=== PATIENT | male | born 1945 | race Caucasian/White ===

== ENCOUNTER 2019-06-26 08:40 | Outpatient (CLI) | payer MEDICARE, SELFPAY ==
--- NOTE | ~2019-06-26 | CT_ITS ---
EXAMINATION: CT chest wo con EXAM DATE: 06/26/2019 09:39 INDICATION: Sprain of the sternoclavicular joint, pain. TECHNIQUE: Spiral CT of the chest without contrast. Axial, coronal and sagittal images were reviewe d. Coronal maximum intensity pixel images of chest reviewed. The dose-length product (DLP) for this examination was 223.98 mGy-cm. The exposure was tailored according to patient size (auto mA exposur e control), and iterative reconstruction (ASIR) was used as additional dose reduction technique. Comp arison is made to prior examination from 11/23/2011. 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 There are no acute fractures identified. There is a 4 mm nodule in the lingula, new compared to 201 2 exam, but most likely postinfectious. The lungs are otherwise clear. Trace pericardial, no pleura l effusions. Tracheobronchial tree is patent. There is no mediastinal, hilar or axillary lymphaden opathy. There is no pneumothorax. Heart normal in size. There is mild to moderate coronary jeannie rial calcification, arterial sclerosis. There are cholecystectomy clips. There is thoracic spondyl osis without osteoblastic or osteolytic lesions identified. IMPRESSION: 1. 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 2. Small lingular nodule likely postinfectious but new compared to 2012; optional one-year follow-up low-dose chest CT. Reviewed, dictated and finalized at location A. ONARY DISEASE SPECIALIST IMPRESSION: 1. 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 2. Small lingular nodule likely postinfectious but new compared to 2012; optio nal one-year follow-up low-dose chest CT.
== END 2019-06-26 08:41 | disposition home or self-care (01) ==
PROVIDERS: PCP Family Medicine; Visit Provider Physician Assistant Surgical
DX: S23.420D Sprain of sternoclavicular (joint) (ligament), subsequent encounter (principal); X58.XXXD Exposure to other specified factors, subsequent encounter; M19.012 Primary osteoarthritis, left shoulder; M19.011 Primary osteoarthritis, right shoulder
CPT/HCPCS: 71250

== ENCOUNTER 2022-06-23 16:52 | Outpatient (CLI) | payer MEDICARE, SELFPAY ==
--- NOTE | ~2022-06-23 | US_ITS ---
EXAMINATION: US venous doppler [facility] DATE: 06/23/2022 17:49 INDICATION: Z86.711 - Personal history of pulmonary embolism . TECHNIQUE: Grayscale images without and with compression and Doppler images of the left lower extremi ty veins were obtained. COMPARISON: None FINDINGS: The left popliteal vein is partially compressible. There is nonocclusive thrombus in the left poplite al vein and partial vascular flow. The left common femoral vein, profunda femoral vein, femoral vein, peroneal vein, posterior tibial veins, gastrocnemius vein, and greater saphenous vein are patent. IMPRESSION: 1. Subacute/chronic nonocclusive thrombus in the left popliteal vein. 2. Otherwise patent lower extremity veins. No evidence of acute deep venous thrombosis. Reviewed, dictated and finalized at location K. AROUND PATTERNMAKER IMPRESSION: 1. Subacute/chronic nonocclusive thrombus in the left popliteal vein. 2. Otherwise patent lower extremity veins. No evidence of acute deep venous thr ombosis.
== END 2022-06-23 16:53 | disposition home or self-care (01) ==
PROVIDERS: PCP Family Medicine; Visit Provider Physician Assistant
DX: M79.89 Other specified soft tissue disorders (principal); L53.9 Erythematous condition, unspecified; Z86.711 Personal history of pulmonary embolism; I82.432 Acute embolism and thrombosis of left popliteal vein
CPT/HCPCS: 93971

== ENCOUNTER 2022-06-28 10:07 | Inpatient (IN) | payer MEDICARE, SELFPAY ==
[2022-06-28] VITALS (19 sets, daily range): BP systolic 97–139; BP diastolic 48–75; PULSE 68–88; RESP 12–20; TEMP 36.2–36.5; O2SAT 94–100; BMI 24.3
--- NOTE | ~2022-06-28 | US_ITS ---
EXAMINATION: US art doppler w press LE DATE: 07/01/2022 17:36 INDICATION: Peripheral arterial disease. TECHNIQUE: Segmental pressures and plethysmographic and Doppler waveforms of the brachial and lower e xtremity arteries were obtained. COMPARISON: ABIs 05/15/18 FINDINGS: Right and left brachial artery pressures of 148 mm Hg and 140 mm Hg, respectively, are concordant (no rmal difference <= 30 mmHg). The right low-thigh pressure index is 1.18. The right ankle-brachial index (GENO) could not be measure d due to inability to cuff-occlude the arteries (normal >= 0.9-1.0). The right great toe-brachial ind ex (TBI) is 0.90 (normal >= 0.65). Arterial Doppler waveforms are at least triphasic in common femora l artery and biphasic from superficial femoral artery to the ankle. The left low-thigh pressure index is 1.11. The left GENO could not be measured due to inability to cuf f-occlude the arteries. The left TBI is 0.65. Arterial Doppler waveforms are biphasic from common fem oral artery to the ankle. IMPRESSION: 1. No significant arterial occlusive disease. Reviewed, dictated and finalized at location A. L INSPECTOR
[2022-06-28 12:53] LABS: Basophils Percent Auto 0.3 % (0.2-1.2); Eosinophils Absolute Auto 0.1 K/mm3 (0-0.3); Hematocrit 44.5 % (42.0-52.0); Hemoglobin 15.4 g/dL (14.0-18.0); Immature Granulocyte Absolute 0.03 K/mm3 (0.00-0.031); Immature Granulocyte Percent A 0.3 % (0-0.5); Lymphocytes Absolute Auto 2.41 K/mm3 (0.9-3.2); Lymphocytes Percent Auto 25.9 % (18.3-44.2); Mean Corpuscular HGB Conc 34.6 g/dl (32-36); Mean Corpuscular Hemoglobin 33.7 pg (26-34); Mean Corpuscular Volume 97.4 fl (80-100); Mean Platelet Volume 8.9 fl (7.4-10.4); Monocytes Absolute Auto 0.8 K/mm3 (0.1-0.6); Monocytes Percent Auto 8.4 % (2.6-8.5); Neutrophils Percent Auto 64.1 % (45.5-73.1); Platelet Count Result 207 k/mm3 (150-375); Red Blood Count 4.57 M/mm3 (4.6-6.20); Red Cell Distribution Width 13.1 % (11.5-14.5); White Blood Count 9.3 K/mm3 (4.5-10.0)
[2022-06-28 13:06] LABS: Lactic Acid Reflex 1.8 mmol/L (0.7-2.0)
[2022-06-28 13:07] LABS: Alanine Aminotransferase 32 U/L (6-50); Albumin Level 4.5 g/dL (3.5-5.1); Alkaline Phosphatase 52 U/L (38-126); Anion Gap 8 mmol/L (8-16); Aspartate Amino Transferase 29 U/L (17-59); Bilirubin,Total 0.8 mg/dL (0.2-1.3); Blood Urea Nitrogen 19 mg/dL (9-20); Calcium 9.4 mg/dL (8.4-10.2); Carbon Dioxide 24 mmol/L (22-30); Chloride 103 mmol/L (98-107); Estimated CRCL calculation 102 ml/min; Estimated Glomerular Filt Rate > 60; Glucose 143 mg/dL (65-110); Potassium 4.3 mmol/L (3.4-5.0); Sodium 135 mmol/L (137-145)
--- NOTE | 2022-06-28 14:06 | ED.EXTPRO ---
HPI - Extremity Problem General Chief complaint: Extremity Problem,Nontraumatic Stated complaint: cellulitis of left leg Time Seen by Provider: 06/28/22 11:44 History of Present Illness HPI Narrative: Patient is a 77-year-old male who presents ER with lower extremity cellulitis. Worsening over the last week. Was started on doxycycline and redness continues to spread up his left lower extremity. Patient is diabetic. He has a lot of breaks in his skin on the affected leg. Patient also has history of Rrztsfx-Fnsqp-Mvdkc and wears a brace to the right lower extremity. His left arm is in a immobilizer. Denies fevers or chills or sweats. He is just concerned about the spreading of the cellulitis. Related Data Home Medications Medication Instructions Recorded Confirmed cyanocobalamin (vitamin B-12) 1,000 mcg IM WEEKLY 06/28/22 06/28/22 1,000 mcg/mL injection solution fluticasone propionate 50 1 spray intranasal Q12H PRN 06/28/22 06/28/22 mcg/actuation nasal Congestion spray,suspension (Flonase Allergy Relief) metformin 500 mg tablet,extended 500 mg PO BIDWM 06/28/22 06/28/22 release 24 hr Allergies Allergy/AdvReac Type Severity Reaction Status Date / Time codeine Allergy Unknown severe Verified 06/23/22 15:50 itchy cefepime AdvReac Unresponsiv Verified 06/28/22 14:40 e Review of Systems Review of Systems: All systems reviewed & are unremarkable except as noted in HPI and below Constitutional: Constitutional: Denies chills, Denies fatigue and Denies fever(s) Cardiovascular: Cardiovascular: Denies chest pain, Denies rapid heart rate and Denies radiating jaw, neck or arm pain Respiratory: Respiratory: Denies cough and Denies dyspnea Integumentary/Breasts: Skin/Breast: Denies pruritus, Reports erythema and Denies rash Comments: Dry flaking skin left lower extremity PMFSH Past Medical History Medical History (Updated 06/28/22 @ 20:11 by Ned Duran MD) Amputated toe of left foot Essential (primary) hypertension Hereditary and idiopathic neuropathy, unspecified Idiopathic neuropathy Pernicious anemia Personal history of other venous thrombosis and embolism Personal history of other venous thrombosis and embolism Surgical History Surgical History (Updated 06/28/22 @ 20:11 by Ned Duran MD) S/P IVC filter Family History Family History (Updated 06/28/22 @ 18:19 by Zara Rivera RN) Mother Family history of lung cancer Family history of malignant neoplasm of breast in first degree relative Father Hypertension Cerebrovascular accident DVT (deep venous thrombosis) Asthma Social History Social History Social History: Smoking status: Former smoker Tobacco type: pipe and cigars Second hand tobacco smoke exposure: No Smoking end date: 05/09/93 Additional smoking assessment comments: quit in 1999 Alcohol intake: never Substance use: never Substance use type: does not use Lack of Transportation: No Lack of Food: Never True Current Housing: I Have Housing Concerned About Future Housing: No Difficulty Paying Gas/Electric Bills: No Difficulty Paying for Meds: No Currently Unemployed: No Education: Master's Degree or Higher Difficulty w/ Childcare or Family Care: No Living arrangements: with family Occupation/Education: retired Gender identity (if verbalized by the patient): Male Sexual Orientation (if Verbalized by the Patient): Straight or Heterosexual Spiritual care concerns: No Exam Narrative: GENERAL: Well-appearing, well-nourished, and in no acute distress. HEAD: Normocephalic, atraumatic. EYES: PERRL and EOMI. ENT: Mucous membranes moist. CHEST: Clear to auscultation. No respiratory distress. HEART: Regular rate and rhythm. Normal peripheral pulses. ABDOMEN: Soft, nontender, nondistended. EXTREMITIES: Left upper extremity immobilized. Rig
[2022-06-28] MEDS: metroNIDAZOLE 500 MG/ISO 100ML 500 MG/100 ML BAG 100 MG IVPB ×2 (14:25→21:13)
[2022-06-28] MEDS: SODIUM CHLORIDE 0.9% IV 1,000 ML 999 ML IV CONT (14:46)
[2022-06-28] MEDS: diphenhydrAMINE HCl INJ 50 MG/ML VIAL 25 MG IV PUSH (14:47)
--- NOTE | 2022-06-28 14:47 | PC.NURSE ---
While Cefepime was infusing, Pt. started yelling out that he was feeling very hot. Pt. appeared flushed and red. Cefepime stopped. After that, Pt. had an episode of unresponsiveness and appeared to have a syncopal episode lasting about 30 seconds. Carotid pulse present. Pt. woke up immediately after the event. ERP notified and was at bedside when Pt. went unresponsive. No hives or swelling noted. Pt. placed in a room with environmental monitoring specialist. ERP placed new orders. Pt. feeling lethargic.
[2022-06-28 15:51] LABS: Influenza A QL RT-PCR Negative (Negative); Influenza B QL RT-PCR Negative (Negative); SARS-CoV-2 RNA PCR Negative
--- NOTE | 2022-06-28 16:45 | PM.IMHP ---
H&P: HPI History of Present Illness Date/Time: 06/28/22 16:45 Chief Complaint: Worsening left leg infection. 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 He has some chronic hyperpigmentation in the lower legs bilaterally which is likely due to the braces that he wears. He typically wears Edis hose under his braces and socks over them, removing them at nighttime. However he had a left rotator cuff repair done several weeks ago and for a few days he wore the brace is continuously as he was having difficulties with his balance and limited mobility from the surgery. Several days thereafter he developed increasing redness and burning pain in the posterior ankle area. He was seen by his primary care provider on 06/23/2022 and was started on doxycycline for presumed cellulitis. A venous Doppler ultrasound was done at that time to evaluate for possible DVT as he had been off of his warfarin for a bit before his surgery. A subacute/chronic nonocclusive thrombus was noted in the left popliteal vein and his warfarin has been therapeutic, and fact it was 4.2 last night and he did not take the warfarin today. In any event the redness in his leg has started to spread upwards and he has noticed some serous drainage from the shallow open area on the posterior heel and he came in today for evaluation. Due to his comorbidities he was started on broad-spectrum antibiotics per antibiotic stewardship recommendations. Within a minute following the start of his cefepime infusion he developed burning sensations ?in my veins? with flushed feeling and he had a brief syncopal episode where he was hypotensive. Nurse stop the IV infusion immediately and he was administered diphenhydramine IV with improvement in his symptoms. He has been stable since that time and reports that he has never had an allergic reaction to cephalosporins in the past. He denies fever, nausea, vomiting, and history of multidrug resistant organisms. Review of Systems Review of Systems: Twelve systems were reviewed and are negative except for as per HPI. [facility] Past Medical History Medical History (Updated 06/28/22 @ 22:19 by Lisa Garza PA-C) Jmieanf-Thdwo-Yiywd disease Chronic anticoagulation Essential (primary) hypertension Idiopathic neuropathy Pernicious anemia Personal history of other venous thrombosis and embolism Type 2 diabetes mellitus Surgical History Surgical History Amputated toe of left foot History of basal cell carcinoma excision History of cataract extraction History of cholecystectomy History of inferior vena caval filter placement History of repair of left rotator cuff Family History Family History Mother Family history of lung cancer Family history of malignant neoplasm of breast in first degree relative Father Hypertension Cerebrovascular accident DVT (deep venous thrombosis) Asthma Social History Social History (Updated 06/28/22 @ 22:14 by Lisa Garza PA-C) Social History: Surrogate medical decision maker: Nona Browning, spouse. Code status: Full code. Smoking status: Former smoker Tobacco type: pipe and cigars Second hand tobacco smoke exposure: No Smoking end date: 05/09/93 Additional smoking assessment comments: quit in 1999 Alcohol intake: never Substance use: never Substance use type: does not use Lack of Transportation: No Lack of Food: Never True Current Housing: I Have Housing Concerned About Future Housing: No Difficulty Paying Gas/Electric Bills: No Difficulty Paying for Meds: No Currently Unemployed: No Education: Master's Degree or Higher Difficulty
--- NOTE | 2022-06-28 17:24 | ADMGEN ---
This patient, Fan Browning, was admitted to IMU Room 206-01. Patient/family oriented to hospital policies and general routines including ID bracelet, bed and alarms, visiting hours, pain management, procedures, bathroom and other care routines, personal items, smoking policy, room service/diet, and visiting hours. Information on how to activate the Rapid Response Team has been discussed. Patient/Family are encouraged to report perceived risks to care and to ask questions if they do not understand what they are told or what they should do.
[2022-06-28] MEDS: SODIUM CHLORIDE 0.9% IV 1,000 ML 125 ML IV CONT (17:25)
[2022-06-28 19:35] LABS: Glucose Point of Care 219 mg/dl (65-105)
[2022-06-28 23:01] LABS: Hemoglobin A1C 7.6 % (<5.7)
[2022-06-28 23:04] LABS: INR 2.4; Prothrombin Time 25.1 Seconds (11.1-14.7)
[2022-06-29] VITALS (14 sets, daily range): BP systolic 110–131; BP diastolic 54–77; PULSE 69–85; RESP 14–16; TEMP 36.1–37.1; O2SAT 100
[2022-06-29 04:46] LABS: Hematocrit 39.2 % (42.0-52.0); Hemoglobin 13.4 g/dL (14.0-18.0); Mean Corpuscular HGB Conc 34.2 g/dl (32-36); Mean Corpuscular Hemoglobin 33.3 pg (26-34); Mean Corpuscular Volume 97.5 fl (80-100); Mean Platelet Volume 8.7 fl (7.4-10.4); Platelet Count Result 168 k/mm3 (150-375); Red Blood Count 4.02 M/mm3 (4.6-6.20); Red Cell Distribution Width 12.9 % (11.5-14.5); White Blood Count 5.7 K/mm3 (4.5-10.0)
[2022-06-29 04:56] LABS: INR 2.2; Prothrombin Time 23.3 Seconds (11.1-14.7)
[2022-06-29 05:02] LABS: Alanine Aminotransferase 27 U/L (6-50); Albumin Level 3.8 g/dL (3.5-5.1); Alkaline Phosphatase 44 U/L (38-126); Anion Gap 5 mmol/L (8-16); Aspartate Amino Transferase 22 U/L (17-59); Bilirubin,Total 0.8 mg/dL (0.2-1.3); Blood Urea Nitrogen 15 mg/dL (9-20); Calcium 8.5 mg/dL (8.4-10.2); Carbon Dioxide 25 mmol/L (22-30); Chloride 105 mmol/L (98-107); Estimated CRCL calculation 102 ml/min; Estimated Glomerular Filt Rate > 60; Glucose 140 mg/dL (65-110); Potassium 3.7 mmol/L (3.4-5.0); Sodium 135 mmol/L (137-145)
[2022-06-29] MEDS: metroNIDAZOLE 500 MG/ISO 100ML 500 MG/100 ML BAG 100 MG IVPB ×3 (05:36→21:25)
[2022-06-29 08:02] LABS: Glucose Point of Care 156 mg/dl (65-105)
[2022-06-29] MEDS: EMPAGLIFLOZIN 25 MG TABLET PO (08:33)
[2022-06-29] MEDS: ATORVASTATIN 10 MG TABLET PO (08:33)
[2022-06-29] MEDS: metFORMIN HCL XR 500 MG TAB.SR.24H PO ×2 (08:33→16:40)
[2022-06-29] MEDS: atenoloL 25 MG TABLET BY MOUTH (08:35)
[2022-06-29] MEDS: PERFLUTREN LIPID MICROSPHERES 1.5 ML VIAL DILUTED TO 10 ML TOTAL VOLUME IV PUSH (09:11)
--- NOTE | 2022-06-29 09:40 | PM.IMPN ---
Progress Note: A&P Assessment and Plan (1) Cellulitis of left leg: Code(s): L03.116 - Cellulitis of left lower limb Status: Acute Assessment and Plan: The patient presented to the ED for evaluation of worsening cellulitis of the left leg despite being on doxycycline for the past 5 days. He wears LE braces for his neuropathy from the [facility]. He was started on cefepime, metronidazole, and vancomycin on admission (cefepime changed to Primaxin due to the reaction) He remains afebrile. WBC remains normal. Continue current IV abx. Add antifungal cream (2) Unresponsive episode: Code(s): R41.89 - Other symptoms and signs involving cognitive functions and awareness Status: Acute Assessment and Plan: While in the ED and within a minute of starting the cefepime infusion, the patient felt a burning sensation throughout his body and he became briefly unresponsive and hypotensive. Cefepime was stopped and his symptoms resolved thereafter. His blood pressures improved immediately once he came to and he did not require epinephrine. There was no urticaria, angioedema, etc.. He may have had a vasovagal response. Nothing noted on tele since admission. Cefepime now on his allergy list. (3) Type 2 diabetes mellitus: Code(s): E11.9 - Type 2 diabetes mellitus without complications Status: Acute Assessment and Plan: A1c 7.6. The patient's blood glucose was reviewed on 06/29 Glucose remains well controlled. Continue AccuCheks covering with sliding scale. Hypoglycemia protocol available as needed. Continue current medications. (4) Chronic anticoagulation: Code(s): Z79.01 - intermodal owner operator truck driver (current) use of anticoagulants Status: Acute Assessment and Plan: Patient is on chronic anticoagulation for history of DVT. He is on lifelong therapy. Venous Doppler here shows subacute or chronic nonocclusive thrombus in left popliteal vein. Suspect this is probably more chronic. Spoke with the patient about possibly switching to Eliquis. He was speak with his but may consider this. If he wishes to change, will have care coordination determine [place] to see if he can afford this. INR therapeutic. Continue daily INR. (5) History of repair of left rotator cuff: Code(s): Z98.890 - Other specified postprocedural states Status: Acute Assessment and Plan: The patient is 1 month out from a left rotator cuff tear repair. I offered therapy but patient declines at this time. He states he is doing exercises as prescribed by his orthopedist. 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 Patient states the left leg is still very sore without change in the amount of pain. No other symptoms. No chest pain or shortness of breath. He is eating normally. Exam Narrative: AF 123/54 73 14 100% ra Gen - NARD Chest - CTA bilaterally, nml RR CV - RRR S1/S2. Telemetry showing first-degree AV block and PVCs. Abd - Soft, NT/ND, Positive BS Ext - No pedal edema. Left UE in sling. Lab Specialist weak but symmetric. Normal sensation to the left hand. Psych - Nml mood and affect Skin - Warm and dry. Chronic venous stasis skin changes bilateral LE. Dry scaly skin noted posterior left calf extendinginto the left heel. Left heel dry. Left lower leg with areas of bronzed erythema at the periphery and dark brick red more centrally. mildly warm to touch. No desicreet nodule or flucuants. Objective Data Vital Signs Vital Signs: Vital Signs - 24 hr 06/28/22 10:49 06/28/22 14:36 06/28/22 14:51 Temperature 97.6 F Pulse Rate 83 71 73 Respiratory Rate 16 12 14 Blood Pressure 139/75 97/72 L 133/62 Pulse Oximetry 99 96 96 Oxygen Delivery Room Air 06/28/22 14:59 06/28/22 15:00 06/28/22 15:01 Temperature Pulse Rate 71 73 71 Respiratory Rate 15 15
--- NOTE | 2022-06-29 09:50 | IVDEFINITY ---
Prior to administration of IV Definity the patient was educated on the risks and benefits of the imaging enhancing agent including potential adverse side effects. The patient verbalized understanding. Allergies were verified. No exclusion criteria were identified and at least one of the following inclusion criteria were met: 1) physician request, 2) patient technically difficult to image (per the [place] [employer] Echocardi[employer] guidelines of two or more segments not discernable within the apical view), or 3) questionable left ventricular function. ?
[2022-06-29 11:40] LABS: Glucose Point of Care 157 mg/dl (65-105)
--- NOTE | 2022-06-29 16:10 | PCCCNOTE ---
On 06/29/22, the student, [Jennifer Cruz], provided care and [facility]. I have reviewed the student's documentation and agree with the findings.
[2022-06-29 16:51] LABS: Glucose Point of Care 140 mg/dl (65-105)
--- NOTE | 2022-06-29 22:27 | ECHO_ITS ---
Patient Info Name: Fan Browning Age: 77 years : 1945 Gender: Male Ht: 73 in Wt: 189 lbs BSA: 2.11 m2 HR: 70 bpm BP: 117 / 55 mmHg Heart Rhythm: Sinus Rhythm Technical Quality: Fair Exam Date: 06/29/2022 8:48 AM Exam Location: [facility] Card Pulmonary Patient Status: Inpatient Admit Date: 06/28/2022 Staff Ordering Physician: Lisa Garza PA-C Sand Cutter Operator: Chuyita Karimi RDCS Attending Provider: Magdalene Moncada MD Referring Physician: Kayla EPPS; Exam Type: CA echo dop color flow w con Study Info Indications - brief lose of consciousness Complete two-dimensional, color flow and Doppler transthoracic echocardiogram is performed with contrast to opacify the left ventricle and to improve the deliniation of the left ventricle endocardial borders. Contrast/Agitated Saline Contrast/Ag. Saline: Definity Amount: 3.00 ml Administered By: Chuyita Karimi RDCS Existing IV Access: Yes IV Access Condition: patent with no signs of infiltration Summary 1. Definity contrast administered improved wall motion interpretation. 2. Left ventricular chamber dimension is normal. 3. Left ventricular systolic function is normal, estimated at 60-65%. 4. The left ventricular diastolic function is grade I diastolic dysfunction. 5. E/e' 8 is minimally elevated. 6. There is mild aortic valve sclerosis. Left Ventricle E/e' 8 is minimally elevated. Definity contrast administered improved wall motion interpretation. Left ventricular chamber dimension is normal. Left ventricular systolic function is normal, estimated at 60-65%. The left ventricular diastolic function is grade I diastolic dysfunction. Right Ventricle Right ventricular systolic function is normal and with normal TAPSE 2.6 cm. Right ventricular chamber dimension is normal. Left Atria Left atrial chamber dimension is normal. Right Atria Right atrial chamber dimension is normal. Aortic Valve The aortic valve is trileaflet. There is mild aortic valve sclerosis. There is no aortic valve stenosis. There is no aortic valve regurgitation. Pulmonic Valve There is no pulmonic regurgitation. Mitral Valve There is no mitral valve stenosis. There is no mitral valve regurgitation. Tricuspid Valve There is no tricuspid valve regurgitation. Pericardium/Pleural There is no pericardial effusion. Inferior Vena Cava Normal inferior vena cava with >50% collapse upon inspiration consistent with normal right atrial pressure, 5 mmHg. Aorta The aortic root size at the sinus of Valsalva is normal. Left Ventricular Outflow Tract Name Value Normal LVOT 2D LVOT Diameter 2.02 cm LVOT Doppler LVOT Peak Gradient 3 mmHg LVOT Mean Gradient 1 mmHg LVOT VTI 15.87 cm LVOT VTI/AV VTI Ratio 0.76 LVOT Stroke Volume 50.98 ml LVOT CO 4.30 l/min LVOT CI 2.04 L/min/m2 Pulmonic Valve
[2022-06-29 23:00] LABS: Glucose Point of Care 122 mg/dl (65-105)
[2022-06-30] VITALS (11 sets, daily range): BP systolic 116–148; BP diastolic 54–74; PULSE 61–72; RESP 14–18; TEMP 35.9–36.4; O2SAT 98–100
--- NOTE | 2022-06-30 00:42 | PC.NURSE ---
Patient arrived to unit @ 2023. Oriented to unit. Report received from Annalisa ALONSO.
[2022-06-30 02:53] LABS: Hematocrit 37.6 % (42.0-52.0); Mean Corpuscular HGB Conc 34.6 g/dl (32-36); Mean Corpuscular Hemoglobin 33.8 pg (26-34); Mean Corpuscular Volume 97.7 fl (80-100); Mean Platelet Volume 8.7 fl (7.4-10.4); Platelet Count Result 146 k/mm3 (150-375); Red Blood Count 3.85 M/mm3 (4.6-6.20); Red Cell Distribution Width 12.9 % (11.5-14.5); White Blood Count 5.7 K/mm3 (4.5-10.0)
[2022-06-30 03:04] LABS: INR 1.8; Prothrombin Time 19.8 Seconds (11.1-14.7)
[2022-06-30 03:09] LABS: Anion Gap 2 mmol/L (8-16); Blood Urea Nitrogen 12 mg/dL (9-20); CRP 0.6 mg/dL (<1.0); Calcium 8.2 mg/dL (8.4-10.2); Carbon Dioxide 26 mmol/L (22-30); Chloride 109 mmol/L (98-107); Estimated CRCL calculation 102 ml/min; Estimated Glomerular Filt Rate > 60; Glucose 121 mg/dL (65-110); Potassium 3.5 mmol/L (3.4-5.0); Sodium 137 mmol/L (137-145)
[2022-06-30 03:33] LABS: Vancomycin Trough 12.6 ug/mL (10.0-20.0)
[2022-06-30] MEDS: metroNIDAZOLE 500 MG/ISO 100ML 500 MG/100 ML BAG 100 MG IVPB ×3 (06:16→22:04)
[2022-06-30] MEDS: CYANOCOBALAMIN INJ 1,000 MCG/ML VIAL 1000 MCG IM (08:11)
[2022-06-30] MEDS: metFORMIN HCL XR 500 MG TAB.SR.24H PO ×2 (08:11→17:50)
[2022-06-30] MEDS: atenoloL 25 MG TABLET BY MOUTH (08:11)
[2022-06-30] MEDS: ATORVASTATIN 10 MG TABLET PO (08:11)
[2022-06-30] MEDS: EMPAGLIFLOZIN 25 MG TABLET PO (08:12)
[2022-06-30 10:14] LABS: Glucose Point of Care 131 mg/dl (65-105)
[2022-06-30 12:00] LABS: Glucose Point of Care 127 mg/dl (65-105)
--- NOTE | 2022-06-30 16:09 | PM.IMPN ---
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 Labs, imaging, and all reports were personally reviewed. He is afebrile with normal white blood cell count however his leg certainly looks infected. He was started on cefepime, metronidazole, and vancomycin in the emergency department per antibiotic stewardship recommendations. Within a minute of starting the cefepime infusion he started to feel a burning sensation throughout his body and he was briefly unresponsive and hypotensive. Cefepime has been discontinued. 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 left leg swelling improved possible tinea at base of L foot Exam Narrative: Gen - friendly pleasant man Chest - CTA bilaterally, nml RR CV - RRR S1/S2. Abd - Soft, NT/ND, Positive BS Ext - No pedal edema. Left UE in sling. Model Making Supervisor weak but symmetric. Normal sensation to the left hand. Psych - Nml mood and affect Skin - Warm and dry. Chronic venous stasis skin changes bilateral LE. Dry scaly skin noted posterior left calf extending into the left heel. Left heel dry. left calf red and swollen swelling improving Objective Data Vital Signs Vital Signs: Vital Signs - 24 hr 06/29/22 18:00 06/29/22 19:57 06/29/22 20:00 Temperature 36.4 C Pulse Rate 75 69 73 Respiratory Rate 16 Blood Pressure 129/64 Pulse Oximetry 100 06/30/22 00:00 06/30/22 00:00 06/30/22 04:40 Temperature 36.1 C L Pulse Rate 64 64 61 Respiratory Rate 14 Blood Pressure 128/54 L Pulse Oximetry 100 06/30/22 04:00 02/22/23 08:11 06/30/22 09:00 Temperature 36.2 C L 36.2 C L Pulse Rate 64 72 67 Respiratory Rate 18 18 Blood Pressure 127/61 128/74 Pulse Oximetry 99 98 06/30/22 08:00 06/30/22 12:00 06/30/22 14:00 Temperature 35.9 C L Pulse Rate 71 68 62 Respiratory Rate 18 Blood Pressure 116/61 Pulse Oximetry 100 06/30/22 14:00 Temperature 35.9 C L Pulse Rate 62 Respiratory Rate 18 Blood Pressure 116/61 Pulse Oximetry 100 Intake/Output Intake/Output: Intake & Output 06/27/22 06/28/22 06/29/22 06/30/22 23:59 23:59 23:59 23:59 Intake Total 1455 3820 2380 Output Total 2100 1525 Balance 1455 1720 855 Meds/Results Medications: Active Medications Generic Name Dose Route Start Last Admin Trade Name Freq PRN Reason Stop Dose Admin Acetaminophen 650 mg 06/28/22 16:07 Acetaminophen 325 Mg Tablet PO Q4H PRN Mild Pain (1-3) or Fever Atenolol 25 mg 06/28/22 09:00 06/30/22 08:11 Atenolol 25 Mg Tablet BY MOUTH 25 mg DAILY HARISH Administration Atorvastatin Calcium 10 mg 06/29/22 09:00 06/30/22 08:11 Atorvastatin 10 Mg Tablet PO 10 mg DAILY HARISH Administration Cyanocobalamin 1,000 mcg 06/30/22 09:00 06/30/22 08:11 Cyanocobalamin Inj 1,000 Mcg/Ml Vial IM 1,000 mcg WEEKLY HARISH Administration Dextrose 12.5 gm 06/28/22 22:18 Dextrose 50% 25 Gm/50 Ml Syringe IV PUSH PRN PRN Hypoglycemia Protocol Empagliflozin 25 mg 06/29/22 09:00 06/30/22 08:12 Empagliflozin 25 Mg Tablet PO 25 mg QAM HARISH Administration Fluticasone Propionate 1 spray 06/28/22 22:27 Fluticasone Propionate 0.05% Na Spr 16 Gm Btl (*Bkc) [employer]
[2022-06-30 17:00] LABS: Glucose Point of Care 130 mg/dl (65-105)
[2022-06-30] MEDS: WARFARIN (*PBKC) 4 MG TABLET BY MOUTH (17:51)
[2022-06-30 21:10] LABS: Glucose Point of Care 142 mg/dl (65-105)
[2022-07-01] VITALS (10 sets, daily range): BP systolic 121–150; BP diastolic 61–85; PULSE 60–86; RESP 14–18; TEMP 35.8–36.2; O2SAT 99–100
[2022-07-01] MEDS: metroNIDAZOLE 500 MG/ISO 100ML 500 MG/100 ML BAG 100 MG IVPB (06:38)
[2022-07-01 07:59] LABS: Glucose Point of Care 108 mg/dl (65-105)
[2022-07-01] MEDS: atenoloL 25 MG TABLET BY MOUTH (08:41)
[2022-07-01] MEDS: ATORVASTATIN 10 MG TABLET PO (08:41)
[2022-07-01] MEDS: EMPAGLIFLOZIN 25 MG TABLET PO (08:42)
[2022-07-01] MEDS: metFORMIN HCL XR 500 MG TAB.SR.24H PO ×2 (08:42→17:54)
[2022-07-01 08:59] LABS: INR 1.4; Prothrombin Time 16.5 Seconds (11.1-14.7)
[2022-07-01 09:03] LABS: Anion Gap 6 mmol/L (8-16); Blood Urea Nitrogen 10 mg/dL (9-20); Calcium 8.4 mg/dL (8.4-10.2); Carbon Dioxide 22 mmol/L (22-30); Chloride 109 mmol/L (98-107); Estimated CRCL calculation 89 ml/min; Estimated Glomerular Filt Rate > 60; Glucose 132 mg/dL (65-110); Potassium 3.8 mmol/L (3.4-5.0); Sodium 137 mmol/L (137-145)
[2022-07-01 09:16] LABS: Hematocrit 41.4 % (42.0-52.0); Hemoglobin 13.8 g/dL (14.0-18.0); Mean Corpuscular HGB Conc 33.3 g/dl (32-36); Mean Corpuscular Hemoglobin 33.2 pg (26-34); Mean Corpuscular Volume 99.5 fl (80-100); Mean Platelet Volume 8.7 fl (7.4-10.4); Platelet Count Result 159 k/mm3 (150-375); Red Blood Count 4.16 M/mm3 (4.6-6.20); Red Cell Distribution Width 12.9 % (11.5-14.5); White Blood Count 5.8 K/mm3 (4.5-10.0)
[2022-07-01 12:02] LABS: Glucose Point of Care 162 mg/dl (65-105)
--- NOTE | 2022-07-01 12:40 | PM.IMPN ---
Progress Note: A&P Assessment and Plan (1) Cellulitis of left leg: Code(s): L03.116 - Cellulitis of left lower limb Status: Acute (2) Unresponsive episode: Code(s): R41.89 - Other symptoms and signs involving cognitive functions and awareness Status: Acute (3) Type 2 diabetes mellitus: Code(s): E11.9 - Type 2 diabetes mellitus without complications Status: Acute (4) Chronic anticoagulation: Code(s): Z79.01 - oil heaterman (current) use of anticoagulants Status: Acute Plan The patient presented to the emergency department for evaluation of worsening cellulitis of the left leg despite being on doxycycline for the past 5 days. Labs, imaging, and all reports were personally reviewed. He is afebrile with normal white blood cell count however his leg certainly looks infected. He was started on cefepime, metronidazole, and vancomycin in the emergency department per antibiotic stewardship recommendations. IV abx are to be cut back today. Arterial doppler ordered on L leg to check blood flow. 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 Left leg swelling and redness much the same as yesterday, possible tinea at base of L foot n obvious sores or wounds seen on left foot Pt had venous doppler on admission showing- 1.? Subacute/chronic nonocclusive thrombus in the left popliteal vein. 2. Otherwise patent lower extremity veins. No evidence of acute deep venous thrombosis. Pt concerned about blood low in the leg arterial doppler ordered today Review of Systems Review of Systems: Leg pain and swelling Exam Narrative: Gen - friendly pleasant man Chest - CTA bilaterally, nml RR CV - RRR S1/S2. Abd - Soft, NT/ND, Positive BS Ext - No pedal edema. Left UE in sling. Manufacturing Tech weak but symmetric. Normal sensation to the left hand. Psych - Nml mood and affect Skin - Warm and dry. Chronic venous stasis skin changes bilateral LE. Dry scaly skin noted posterior left calf extending into the left heel. Left heel dry. left calf red and swollen swelling much the same as yesterday Objective Data Vital Signs Vital Signs: Vital Signs - 24 hr 06/30/22 14:00 06/30/22 14:00 06/30/22 16:00 Temperature 35.9 C L 35.9 C L Pulse Rate 62 62 64 Respiratory Rate 18 18 Blood Pressure 116/61 116/61 Pulse Oximetry 100 100 06/30/22 18:00 06/30/22 20:00 07/01/22 00:00 Temperature 36.4 C 36.2 C L 36.2 C L Pulse Rate 61 65 65 Respiratory Rate 16 16 14 Blood Pressure 125/63 148/66 H 138/65 Pulse Oximetry 100 100 100 06/30/22 20:00 07/01/22 00:00 07/01/22 04:00 Temperature Pulse Rate 67 67 62 Respiratory Rate Blood Pressure Pulse Oximetry 07/01/22 04:00 07/01/22 08:41 07/01/22 08:00 Temperature 36.0 C L Pulse Rate 65 75 84 Respiratory Rate 18 Blood Pressure 121/61 Pulse Oximetry 99 07/01/22 10:00 07/01/22 12:00 Temperature 36.2 C L Pulse Rate 86 75 Respiratory Rate 16 Blood Pressure 144/85 H Pulse Oximetry 99 Intake/Output Intake/Output: Intake & Output 06/28/22 06/29/22 06/30/22 07/01/22 23:59 23:59 23:59 23:59 Intake Total 1455 3820 3670 1670 Output Total 2100 1525 2375 Balance 1455 1720 2145 -705 Meds/Results Medications: Active Medications Generic Name Dose Route Start Last Admin Trade Name Freq PRN Reason Stop Dose Admin Acetaminophen 650 mg 06/28/22 16:07 Acetaminophen 325 Mg Tablet PO Q4H PRN Mild Pain (1-3) or Fever Atenolol 25 mg 06/28/22 09:00 07/01/22 08:41 Atenolol 25 Mg Tablet BY MOUTH 25 mg DAILY HARISH Administration Atorvastatin Calcium 10 mg 06/29/22 09:00 07/01/22 08:41 Atorvastatin 10 Mg Tablet PO 10 mg DAILY HARISH Administration Cyanocobalamin 1,000 mcg 06/30/22 09:00 06/30/22 08:11 Cyanocobalamin Inj 1,000 Mcg/Ml Vial IM 1,000 m
--- NOTE | 2022-07-01 12:53 | P.CDI_ITS ---
CDI Query Clarification Request Cellulitis is related to Diabetes Mellitus <Cheryl Mccall MD - Last Filed: 07/01/22 14:08> Clarified Diagnosis Clarified Diagnosis: Please clarify if there is a cause and effect relationship between Cellulitis and Diabetes Mellitus. Please Clarify if: * Cellulitis is related to Diabetes Mellitus * Cellulitis is not related to Diabetes Mellitus * Unknown if Cellulitis is related to Diabetes Mellitus. <Priyanka Simpson RN - Last Filed: 07/01/22 12:59>
--- NOTE | 2022-07-01 12:53 | WPDCDIQUERY2 ---
CDI Query Clarification Request Cellulitis is related to Diabetes Mellitus <Cheryl Mccall MD - Last Filed: 07/01/22 14:08> Clarified Diagnosis Clarified Diagnosis: Please clarify if there is a cause and effect relationship between Cellulitis and Diabetes Mellitus. Please Clarify if: Cellulitis is related to Diabetes Mellitus Cellulitis is not related to Diabetes Mellitus Unknown if Cellulitis is related to Diabetes Mellitus. <Priyanka Simpson RN - Last Filed: 07/01/22 12:59>
[2022-07-01 15:27] LABS: Vancomycin Trough 15.7 ug/mL (10.0-20.0)
[2022-07-01] MEDS: WARFARIN (*PBKC) 3 MG TABLET 6 MG BY MOUTH (17:53)
[2022-07-01 17:56] LABS: Glucose Point of Care 117 mg/dl (65-105)
[2022-07-02] VITALS: BP 138/69; PULSE 68; PULSE 69; RESP 16; TEMP 35.9; O2SAT 99
[2022-07-02 00:19] LABS: Glucose Point of Care 174 mg/dl (65-105)
[2022-07-02 04:00] VITALS: BP 145/71; PULSE 68; PULSE 71; RESP 18; TEMP 35.9; O2SAT 100
[2022-07-02 08:00] VITALS: BP 122/66; PULSE 67; PULSE 88; RESP 16; TEMP 36.7; O2SAT 100
[2022-07-02 08:32] LABS: Hematocrit 41.8 % (42.0-52.0); Hemoglobin 14.4 g/dL (14.0-18.0); Mean Corpuscular HGB Conc 34.4 g/dl (32-36); Mean Corpuscular Hemoglobin 33.7 pg (26-34); Mean Corpuscular Volume 97.9 fl (80-100); Mean Platelet Volume 8.7 fl (7.4-10.4); Platelet Count Result 174 k/mm3 (150-375); Red Blood Count 4.27 M/mm3 (4.6-6.20); Red Cell Distribution Width 12.9 % (11.5-14.5)
[2022-07-02 08:32] LABS: Glucose Point of Care 122 mg/dl (65-105)
[2022-07-02 08:37] VITALS: PULSE 70
[2022-07-02] MEDS: atenoloL 25 MG TABLET BY MOUTH (08:37)
[2022-07-02] MEDS: EMPAGLIFLOZIN 25 MG TABLET PO (08:37)
[2022-07-02] MEDS: metFORMIN HCL XR 500 MG TAB.SR.24H PO (08:37)
[2022-07-02] MEDS: ATORVASTATIN 10 MG TABLET PO (08:37)
[2022-07-02 08:43] LABS: INR 1.5; Prothrombin Time 17.4 Seconds (11.1-14.7)
[2022-07-02 08:48] LABS: Anion Gap 5 mmol/L (8-16); Blood Urea Nitrogen 9 mg/dL (9-20); Calcium 8.9 mg/dL (8.4-10.2); Carbon Dioxide 24 mmol/L (22-30); Chloride 109 mmol/L (98-107); Estimated CRCL calculation 102 ml/min; Estimated Glomerular Filt Rate > 60; Glucose 121 mg/dL (65-110); Potassium 3.9 mmol/L (3.4-5.0); Sodium 138 mmol/L (137-145)
--- NOTE | 2022-07-02 11:15 | PM.DS ---
DS: Admitting Diagnosis Discharge Date 07/02/2022 1115 Admitting Diagnosis Cellulitis of the left lower extremity DS: Discharge Diagnosis Discharge Diagnosis (1) Cellulitis of left leg: Code(s): L03.116 - Cellulitis of left lower limb Status: Acute (2) Unresponsive episode: Code(s): R41.89 - Other symptoms and signs involving cognitive functions and awareness Status: Acute (3) Type 2 diabetes mellitus: Code(s): E11.9 - Type 2 diabetes mellitus without complications Status: Acute (4) Chronic anticoagulation: Code(s): Z79.01 - skilled nursing (current) use of anticoagulants Status: Acute Plan The patient presented to the emergency department for evaluation of worsening cellulitis of the left leg despite being on doxycycline for the past 5 days. Labs, imaging, and all reports were personally reviewed. He is afebrile with normal white blood cell count however his leg certainly looks infected. He was started on cefepime, metronidazole, and vancomycin in the emergency department per antibiotic stewardship recommendations. IV abx are to be cut back today. Arterial doppler ordered on L leg to check blood flow. Patient will be discharged on eliquis and warfarin will be stopped. He is also going to go home on PO antibiotics, Bactrim DS: Summary Hospital Course Hospital Course: Patient [id number] male with past medical history of DVT, hypertension, peripheral neuropathy, diabetes who presented to the ED with complaints of worsening lower left leg swelling and infection. Patient stated that he was on doxycycline for the 5 days prior to admission however no improvement was noted. Venous Dopplers were done and showed no DVT. While in the ED the patient was started cefepime, vancomycin, Flagyl however in the ED patient had a unresponsive episode which is related to the cefepime. Cefepime was changed to Primaxin. Patient remains afebrile and white blood cells are also stable. Glucose has been controlled. Warfarin has been held due to elevated INR. Patient would like to switch to a DOAC. Eliquis has been ordered and is only 30 dollars. Patient denies any chest pain, shortness a breath, nausea, vomiting, diarrhea, constipation, weakness fatigue. Patient did state that he feels like his leg looks a lot better and the redness has dissipated well. Currently patient is stable for discharge for labs and vital signs. Patient will be going home on Bactrim we will do initial dose at the hospital to ensure no adverse reactions. Currently patient is ready to go is in the room and all instructions have been given. Status at Discharge Functional status at discharge: independent ambulation Overall status at discharge: patient is progressing back to baseline Time Spent with Patient Time attestation: Total time spent providing and/or coordinating discharge services: 53 minutes Time spent: Greater than 30 minutes Specific discharge activities: Diagnostic testing, chart review, developing a treatment plan, education, care coordination documentation, physical exam, result review Exam Narrative: General: well-nourished, well-appearing 77-year-old male, sitting up in bed, comfortable, NARD Neuro: awake, alert and oriented x4, speech clear, no focal neuro deficits noted HEENMT: normocephalic, atraumatic, EOMI, sclerae anicteric, moist oral mucosa Respiratory: Clear to auscultation bilaterally without crackles, rhonchi or wheezes, nonlabored breathing Cardio: regular rate, regular rhythm with S1-S2 Abdomen: nondistended, normoactive bowel sounds, soft, nontender to palpation Extremities: no edema, erythema, or tenderness to palpation, DP pulses 2+ bilaterally, 2+ pitting edema to the left lower leg with less redness and swelling Skin: no rashes or lesions, warm and dry, redness noted to the left leg and appears to be getting better Psych: appropriate mood and affect, judgment and insight intact DS: Data D
[2022-07-02 11:35] LABS: Glucose Point of Care 175 mg/dl (65-105)
[2022-07-02] MEDS: SULFAMETHOXAZOLE/TRIMETHOPRIM 800/160 MG DS TABLET 1 TAB PO (11:46)
[2022-07-02 12:00] VITALS: PULSE 73
--- NOTE | 2022-07-02 13:13 | PCCCNOTE ---
On 07/02/22, the student, [Latanya Witt], provided care and completed [facility] documentation on this patient. I have reviewed the student's documentation and agree with the findings.
== END 2022-07-02 13:10 | disposition home or self-care (01) | DRG 638 ==
LOC: ANHED 14:08 → ANHIMU 16:59 → ANH3MEDSUR 06-29 20:30
PROVIDERS: Family Medicine; Internal Medicine; Physician Assistant; Admitting Provider Family Medicine; Emergency Provider Emergency Medicine; PCP Family Medicine; Visit Provider Nurse Practitioner
DX: E11.628 Type 2 diabetes mellitus with other skin complications (principal); L03.116 Cellulitis of left lower limb; R41.89 Other symptoms and signs involving cognitive functions and awareness; E11.42 Type 2 diabetes mellitus with diabetic polyneuropathy; I10 Essential (primary) hypertension; D64.9 Anemia, unspecified; Z20.822 Contact with and (suspected) exposure to COVID-19; Z86.718 Personal history of other venous thrombosis and embolism; Z79.01 Long term (current) use of anticoagulants; Z87.891 Personal history of nicotine dependence; Z79.84 Long term (current) use of oral hypoglycemic drugs; Z79.899 Other long term (current) drug therapy; Z88.5 Allergy status to narcotic agent; Z82.49 Family history of ischemic heart disease and other diseases of the circulatory system
CPT/HCPCS: 36415; 80048; 80053; 80202; 82948; 83036; 83605; 85025; 85027; 85610; 86140; 87040; 87636; 93923; 96361; 96365; 96366; 96367; 96372; 96375; 96376; 99285; A9270; C8929; G0378; J0692; J0743; J1200; J3370; J3420; J7030; J7050; Q9957

== ENCOUNTER 2022-07-26 14:31 | Inpatient (IN) | payer MEDICARE, SELFPAY ==
--- NOTE | ~2022-07-26 | CT_ITS ---
EXAMINATION: CT brain wo con DATE: 07/26/2022 15:40 INDICATION: Fall. Head injury. TECHNIQUE: Computed tomography (CT) of the head was performed without intravenous contrast. The mA wa s adjusted according to patient size. Iterative reconstruction technique was employed. Exam dose: 60 5.33 mGy-cm total exam DLP. COMPARISON: None FINDINGS: Prominent bilateral carotid siphon internal carotid artery calcifications. There is prominent central and cortical cerebral and cerebellar volume loss. No intracranial mass lesion or hemorrhage or cerebrovascular accident is detected. No midline shift o r mass effect. Included paranasal sinuses and mastoid air cells are normally developed and aerated. No fracture or bone destruction of the cranial vault. IMPRESSION: Cerebral cerebellar chronic volume loss Cerebral atherosclerosis No acute intracranial finding or skull fracture Reviewed, dictated and finalized at [facility]. Reviewed, dictated and finalized at location B.
--- NOTE | ~2022-07-26 | XR_ITS ---
EXAMINATION: XR pelvis 1-2V INDICATION: Left hip pain TECHNIQUE: AP view of the pelvis is obtained. COMPARISON: 07/26/2022 FINDINGS: There is mild osteoarthritis of the hips. Again seen is antegrade intramedullary ayah and in terlocking intratrochanteric screw fixation of the left femur. There is proximal distraction of the lesser trochanteric fracture fragment which is unchanged. No additional fracture is identified. Calci fied atherosclerosis is noted. IMPRESSION: 1. Patient status post ORIF of a comminuted intertrochanteric left femur fracture without significant change. Reviewed, dictated and finalized at location L. IMPRESSION: 1. Patient status post ORIF of a comminuted intertrochanteric left femur fractu re without significant change.
--- NOTE | ~2022-07-26 | XR_ITS ---
XR hip LT 2V w AP pelvis DATE: 07/26/2022 14:59 INDICATION: Fall today. Left hip injury, pain TECHNIQUE: AP pelvis. AP and crosstable lateral views of left hip COMPARISON: None FINDINGS: The pubic symphysis and sacroiliac joints are intact. No pelvic fracture or bone destruction is detected. Moderately prominent bilateral hip osteoarthritis. There is a comminuted intertrochanteric fracture of the left proximal femur, with medially displaced lesser trochanter fragment. Minimal displacement regulation is noted otherwise. IMPRESSION: Intertrochanteric left proximal femur fracture Moderately prominent bilateral hip osteoarthritis Reviewed, dictated and finalized at location B.
--- NOTE | ~2022-07-26 | XR_ITS ---
EXAMINATION: XR surgery orthopedic DATE: 07/28/2022 14:21 INDICATION: Left femoral fracture post intertrochanteric nailing TECHNIQUE: 5 fluoroscopic images of the left femur were obtained during procedure performed by Dr. Sony mccall. Radiologist was not present for the imaging or procedure. The amount of fluoroscopy time used during this procedure was 0.9 minutes. COMPARISON: Pelvis radiograph dated 07/26/2022 FINDINGS: Interval open reduction internal fixation of the comminuted intratrochanteric fracture of the proxima l left femur with an antegrade intramedullary ayah, femoral neck dynamic compression screw and distal interlocking screw fixation. Alignment post fixation appears near-anatomic with the exception of pers istent approximately 2 cm proximal distraction of the lesser trochanteric fragment which is not inclu ded within the fixation. Mild left hip osteoarthritis. Likely vasectomy clips at the base of the scro enrrique. IMPRESSION: 1. Expected appearance post open reduction internal fixation of a comminuted left intratrochanteric f emoral fracture which is now near-anatomic alignment of site from unchanged mild proximal distraction of the lesser trochanteric fragment. Reviewed, dictated and finalized at location A. IMPRESSION: 1. Expected appearance post open reduction internal fixation of a comminuted le ft intratrochanteric femoral fracture which is now near-anatomic alignment of s ite from unchanged mild proximal distraction of the lesser trochanteric fragmen t.
--- NOTE | ~2022-07-26 | CT_ITS ---
EXAMINATION: CT cervical spine wo con DATE: 07/26/2022 15:42 INDICATION: Fall. Head and neck injury. TECHNIQUE: Computed tomography (CT) of the cervical spine was performed without intravenous contrast. Automated exposure control and iterative reconstruction technique were employed. Exam dose: 515.00 mGy-cm total exam DLP. COMPARISON: None FINDINGS: There is straightening of the cervical spine which may be due to muscle spasm. C1 and C2 are normally aligned and the odontoid process is intact. There is degenerative disc disease throughout the cervical spine, mild at C2-3, with severe at C3-4, C4-5, C5-6, moderate at C6-7. There is uncovertebral joint spurring in the mid and lower cervical spine, particularly at C4-5 and C 5-6. No fracture or dislocation or locked facet or prevertebral soft tissue swelling is detected.. IMPRESSION: Straightening of the cervical spine which may be due to muscle spasm Cervical spondylosis Reviewed, dictated and finalized at Location A. Reviewed, dictated and finalized at location B. IMPRESSION: Straightening of the cervical spine which may be due to muscle spa sm Cervical spondylosis
--- NOTE | ~2022-07-26 | XR_ITS ---
EXAMINATION: XR femur LT min 2V INDICATION: Left thigh pain TECHNIQUE: Two views of the left femur are obtained on four radiographs COMPARISON: 07/26/2022 FINDINGS: There is antegrade intramedullary ayah and interlocking intratrochanteric screw fixation of the left femur traversing the previously described intertrochanteric fracture. There is unchanged pro ximal distraction of the left or trochanteric fracture fragment. No acute fracture is identified. Kenneth cified atherosclerosis is noted. There is mild hip osteoarthritis. IMPRESSION: 1. Patient status post ORIF of a comminuted intertrochanteric left femur fracture without significant change. Reviewed, dictated and finalized at location L. IMPRESSION: 1. Patient status post ORIF of a comminuted intertrochanteric left femur fractu re without significant change.
[2022-07-26 14:33] VITALS: BP 169/78; PULSE 74; RESP 16; TEMP 36.6; O2SAT 100
--- NOTE | 2022-07-26 14:43 | ECG_ITS ---
Measurements Intervals [place] Rate: 85 P: 77 NC: 294 QRS: -12 QRSD: 98 T: 58 QT: 378 QTc: 451 Interpretive Statements SINUS RHYTHM WITH FIRST DEGREE AV BLOCK BASELINE ARTIFACT- I, III, AVF, V1-V4 BORDERLINE ECG NO PREVIOUS ECG AVAILABLE FOR COMPARISON Electronically Signed On 07-26-2022 14:56:13 CDT by Manolo Mack D.O.
--- NOTE | 2022-07-26 15:10 | ED.LOWEXIN ---
HPI - Extremity Injury (Lower) General Chief Complaint: Extremity Injury, Lower Stated Complaint: hip pain Time Seen by Provider: 07/26/22 14:42 History of Present Illness HPI Narrative: Patient had excellently leaned too far back, and falling, landing on his left hip, he is endorsing quite amount of pain to the hip. Unable to bear weight. EMS had given him a dose of morphine prior to arrival here and he states that it only helped only a little bit. Related Data Home Medications Medication Instructions Recorded Confirmed cyanocobalamin (vitamin B-12) 1,000 mcg IM WEEKLY 06/28/22 07/26/22 1,000 mcg/mL injection solution metformin 500 mg tablet,extended 500 mg PO BIDWM 06/28/22 07/26/22 release 24 hr atenolol 25 mg tablet 25 mg PO DAILY 07/26/22 07/26/22 lisinopril 10 mg PO DAILY 07/26/22 07/26/22 Allergies Allergy/AdvReac Type Severity Reaction Status Date / Time codeine Allergy Unknown severe Verified 07/26/22 17:38 itchy cefepime AdvReac Severe Unresponsiv Verified 07/26/22 17:38 e Review of Systems Review of Systems: CONST: No fever. HEENT: No sore throat C/V: No chest pain RESP: No cough GI: No abdominal pain : No dysuria. M/S: Left hip pain SKIN: No rash. NEURO: [No headache or focal numbness or weakness] PSYCH: [No depression] PMFSH Past Medical History Medical History [id number] disease Chronic anticoagulation Essential (primary) hypertension Idiopathic neuropathy Pernicious anemia Personal history of other venous thrombosis and embolism Type 2 diabetes mellitus Surgical History Surgical History Amputated toe of left foot History of basal cell carcinoma excision History of cataract extraction History of cholecystectomy History of inferior vena caval filter placement History of repair of left rotator cuff Family History Family History Mother Family history of lung cancer Family history of malignant neoplasm of breast in first degree relative Father Hypertension Cerebrovascular accident DVT (deep venous thrombosis) Asthma Social History Social History Social History: Surrogate medical decision maker: Nona Browning, spouse. Code status: Full code. Smoking status: Former smoker Tobacco type: pipe and cigars Second hand tobacco smoke exposure: No Smoking end date: 05/09/93 Additional smoking assessment comments: quit in 1999 Alcohol intake: never Substance use: never Substance use type: does not use Lack of Transportation: No Lack of Food: Never True Current Housing: I Have Housing Concerned About Future Housing: No Difficulty Paying Gas/Electric Bills: No Difficulty Paying for Meds: No Currently Unemployed: No Education: Master's Degree or Higher Difficulty w/ Childcare or Family Care: No Living arrangements: with family Additional living arrangements comments: Lives with in [place]. They have 2 daughters. Occupation/Education: retired Additional occupation/education comments: Retired educator, Special Education. Spiritual care concerns: No Exam Narrative: EXAMINATION OF ORGAN SYSTEMS/BODY AREAS: Constitutional: Vital signs per nursing GENERAL:[No acute distress, non-toxic appearing.] HEAD: Normal with no signs of head trauma. EYES: EOMI, conjunctiva normal ENT: Hearing grossly intact LUNGS: Nonlabored breathing. HEART: [Regular rate and rhythm] ABD: [Soft], [nontender to palpation] EXT: Tenderness palpation left hip, good DP pulses SKIN: [No rashes or lesions.] NEURO: [Alert and oriented x 3. No gross focal sensory or strength deficits.] PSYCH: Normal affect Course Vital Signs Vital signs: Vital Signs Temperature 97.9 F 07/26/22 14:33 Pulse Rate 74 07/26/22 14:33 Respiratory Rate 1
[2022-07-26] MEDS: fentaNYL CITRATE INJ (*CRX) 100 MCG/2 ML VIAL 50 MCG IV PUSH ×3 (15:18→23:08)
[2022-07-26 15:26] LABS: Basophils Percent Auto 0.4 % (0.2-1.2); Eosinophils Percent Auto 0.5 % (0-4.4); Hematocrit 39.4 % (42.0-52.0); Hemoglobin 13.1 g/dL (14.0-18.0); Immature Granulocyte Absolute 0.05 K/mm3 (0.00-0.031); Immature Granulocyte Percent A 0.6 % (0-0.5); Lymphocytes Absolute Auto 1.57 K/mm3 (0.9-3.2); Lymphocytes Percent Auto 19.4 % (18.3-44.2); Mean Corpuscular HGB Conc 33.2 g/dl (32-36); Mean Corpuscular Hemoglobin 33.3 pg (26-34); Mean Corpuscular Volume 100.3 fl (80-100); Monocytes Absolute Auto 0.5 K/mm3 (0.1-0.6); Monocytes Percent Auto 5.8 % (2.6-8.5); Neutrophils Absolute Auto 5.9 K/mm3 (1.3-6.7); Neutrophils Percent Auto 73.3 % (45.5-73.1); Platelet Count Result 233 k/mm3 (150-375); Red Blood Count 3.93 M/mm3 (4.6-6.20); Red Cell Distribution Width 13.3 % (11.5-14.5); White Blood Count 8.1 K/mm3 (4.5-10.0)
[2022-07-26 15:35] LABS: Anion Gap 9 mmol/L (8-16); Blood Urea Nitrogen 18 mg/dL (9-20); Calcium 9.2 mg/dL (8.4-10.2); Carbon Dioxide 23 mmol/L (22-30); Chloride 104 mmol/L (98-107); Estimated CRCL calculation 84 ml/min; Estimated Glomerular Filt Rate > 60; Glucose 235 mg/dL (65-110); Potassium 4.6 mmol/L (3.4-5.0); Sodium 136 mmol/L (137-145)
[2022-07-26 16:50] VITALS: BP 112/58; PULSE 76; RESP 18; O2SAT 100
--- NOTE | 2022-07-26 17:21 | ADMGEN ---
This patient, Fan Browning, was admitted to Medical Room 252-01. Patient/family oriented to hospital policies and general routines including ID bracelet, bed and alarms, visiting hours, pain management, procedures, bathroom and other care routines, personal items, smoking policy, room service/diet, and visiting hours. Information on how to activate the Rapid Response Team has been discussed. Patient/Family are encouraged to report perceived risks to care and to ask questions if they do not understand what they are told or what they should do.
[2022-07-26 17:35] VITALS: BP 130/65; PULSE 75; RESP 16; TEMP 36.6; O2SAT 100
[2022-07-26 17:54] LABS: Glucose Point of Care 225 mg/dl (65-105)
[2022-07-26 19:56] VITALS: BP 134/59; PULSE 78; RESP 20; TEMP 37; O2SAT 100
--- NOTE | 2022-07-26 20:28 | PM.IMHP ---
H&P: HPI History of Present Illness Date/Time: 07/26/22 20:28 Chief Complaint: Fall with lower extremity injury, hip pain Narrative: This is a 77-year-old male patient who took a step back in leaned too far back and fell landing on his left hip. The patient had severe left hip pain and was unable to bear weight. EMS was activated he was given a dose of morphine EN route in the patient stated only helped minimally. H&H is 13.1 and 39.4. His blood sugars were 235, [address] was read as straightening of the cervical spine which may be due to muscle spasms. Cervical spondylosis. Head CT read as cervical cerebral chronic volume loss. Cerebral atherosclerosis. No acute intracranial findings or skull fracture. Hip and pelvis x-ray was read asntertrochanteric left proximal femur fracture Moderately prominent bilateral hip osteoarthritis. Ortho has been consulted. The patient was given fentanyl and tylenol in the emergency room.. The patient is being admitted to observation status on the date of service of 07/26/2022 Review of Systems Review of Systems: All systems reviewed & are unremarkable except as noted in HPI and below Constitutional: Constitutional: Reports as per HPI and Reports no additional constitutional complaints Eyes: Eyes: Reports as per HPI and Reports no additional eye complaints ENT: Reports system reviewed and no additional complaints, except as documented and Reports Normal hearing present Cardiovascular: Cardiovascular: Reports no additional cardiovascular complaints Respiratory: Respiratory: Reports no additional respiratory complaints and Reports no additional respiratory complaints Gastrointestinal: Gastrointestinal: Reports as per HPI and Reports no additional gastrointestinal complaints Musculoskeletal: Musculoskeletal: Reports no additional musculoskeletal complaints Integumentary/Breasts: Skin/Breast: Reports system reviewed and no additional complaints, except as docu and Reports as per HPI Neurologic: Reports system reviewed and no additional complaints, except as documented, Reports as per HPI and Reports Normal hearing present Psychiatric: Psychiatric: Reports no additional psychiatric complaints and Reports as per HPI Endocrine: Endocrine: Reports no additional endocrine complaints Hematologic/Lymphatic: Hematologic/Lymphatic: Reports no additional hematologic/lymphatic complaints Allergic/Immunologic: Allergic/Immunologic: Reports no additional allergic/immunologic complaints [facility] Past Medical History Medical History (Updated 07/27/22 @ 00:23 by Laureen Shanks NP) [id number] disease Chronic anticoagulation Essential (primary) hypertension History of deep vein thrombosis Idiopathic neuropathy Pernicious anemia Personal history of other venous thrombosis and embolism Type 2 diabetes mellitus Surgical History Surgical History (Updated 07/27/22 @ 00:23 by Laureen Shanks NP) Amputated toe of left foot Tip of 2nd phalanges History of basal cell carcinoma excision History of cataract extraction History of cholecystectomy History of extraction of renal calculus History of inferior vena caval filter placement History of repair of left rotator cuff History of tonsillectomy and adenoidectomy Family History Family History Mother Family history of lung cancer Family history of malignant neoplasm of breast in first degree relative Father Hypertension Cerebrovascular accident DVT (deep venous thrombosis) Asthma Social History Social History Social History: Surrogate medical decision maker: Nona Nallely, spouse. Code status: Full code. Smoking status: Former smoker Tobacco type: pipe and cigars Second hand tobacco smoke exposure: No Smoking end date: 05/09/93 Additional smoking assessment comments: quit in 1999 Alcohol intak
[2022-07-26 22:19] LABS: Glucose Point of Care 232 mg/dl (65-105)
[2022-07-27] MEDS: SODIUM CHLORIDE 0.9% IV 1,000 ML 100 ML IV CONT ×2 (01:10→10:50)
[2022-07-27] MEDS: LORazepam INJ (*CRX) 2 MG/ML VIAL 1 MG IV PUSH (01:18)
[2022-07-27 03:25] VITALS: BP 110/56; PULSE 77; RESP 18; TEMP 35.7; O2SAT 100
[2022-07-27] MEDS: fentaNYL CITRATE INJ (*CRX) 100 MCG/2 ML VIAL 50 MCG IV PUSH ×8 (03:51→21:09)
[2022-07-27 05:22] LABS: Glucose Point of Care 161 mg/dl (65-105)
[2022-07-27 05:46] LABS: Basophils Percent Auto 0.2 % (0.2-1.2); Eosinophils Absolute Auto 0.1 K/mm3 (0-0.3); Eosinophils Percent Auto 0.5 % (0-4.4); Hematocrit 33.7 % (42.0-52.0); Hemoglobin 11.2 g/dL (14.0-18.0); Immature Granulocyte Absolute 0.06 K/mm3 (0.00-0.031); Immature Granulocyte Percent A 0.7 % (0-0.5); Lymphocytes Absolute Auto 1.79 K/mm3 (0.9-3.2); Lymphocytes Percent Auto 19.5 % (18.3-44.2); Mean Corpuscular HGB Conc 33.2 g/dl (32-36); Mean Corpuscular Hemoglobin 33.1 pg (26-34); Mean Corpuscular Volume 99.7 fl (80-100); Mean Platelet Volume 8.1 fl (7.4-10.4); Monocytes Absolute Auto 0.8 K/mm3 (0.1-0.6); Monocytes Percent Auto 8.5 % (2.6-8.5); Neutrophils Absolute Auto 6.5 K/mm3 (1.3-6.7); Neutrophils Percent Auto 70.6 % (45.5-73.1); Platelet Count Result 195 k/mm3 (150-375); Red Blood Count 3.38 M/mm3 (4.6-6.20); Red Cell Distribution Width 13.5 % (11.5-14.5); White Blood Count 9.2 K/mm3 (4.5-10.0)
[2022-07-27 06:03] LABS: Alanine Aminotransferase 36 U/L (6-50); Albumin Level 3.5 g/dL (3.5-5.1); Alkaline Phosphatase 51 U/L (38-126); Anion Gap 1 mmol/L (8-16); Aspartate Amino Transferase 24 U/L (17-59); Bilirubin,Total 0.6 mg/dL (0.2-1.3); Blood Urea Nitrogen 15 mg/dL (9-20); Calcium 8.4 mg/dL (8.4-10.2); Carbon Dioxide 28 mmol/L (22-30); Chloride 105 mmol/L (98-107); Estimated CRCL calculation 102 ml/min; Estimated Glomerular Filt Rate > 60; Glucose 158 mg/dL (65-110); Potassium 3.9 mmol/L (3.4-5.0); Sodium 134 mmol/L (137-145)
[2022-07-27 07:55] LABS: Hemoglobin A1C 7.4 % (<5.7)
[2022-07-27 08:51] LABS: Glucose Point of Care 167 mg/dl (65-105)
[2022-07-27 09:08] VITALS: PULSE 80; RESP 18; O2SAT 100
[2022-07-27] MEDS: atenoloL 25 MG TABLET PO (09:08)
[2022-07-27] MEDS: EMPAGLIFLOZIN 25 MG TABLET PO (09:08)
[2022-07-27] MEDS: ATORVASTATIN 10 MG TABLET PO (09:08)
[2022-07-27] MEDS: lisinopriL 10 MG TABLET PO (09:08)
[2022-07-27 11:36] VITALS: O2SAT 95
[2022-07-27 12:14] LABS: Glucose Point of Care 176 mg/dl (65-105)
--- NOTE | 2022-07-27 13:17 | PM.IMPN ---
Progress Note: A&P Assessment and Plan (1) Closed intertrochanteric fracture: Code(s): S72.143A - Displaced intertrochanteric fracture of unspecified femur, initial encounter for closed fracture Status: Acute Assessment and Plan: Patient has a history of idiopathic peripheral neuropathy and he wears leg braces to aid in balance. Patient does not exactly remember why he had fallen. He was not sure if he had tripped due to the lack of feeling below the knee.Patient does have significant left hip pain. X-ray revealed intertrochanteric left proximal femur fracture Ortho has been consulted Continue with analgesic Surgery planned for 07/28/2022. (2) Type 2 diabetes mellitus: Code(s): E11.9 - Type 2 diabetes mellitus without complications Status: Acute Assessment and Plan: Accu-Cheks every 6 hours with sliding scale insulin and hypoglycemic protocol check A1c Trulicity is non formulary. (3) Idiopathic neuropathy: Code(s): G60.9 - Hereditary and idiopathic neuropathy, unspecified Status: Chronic Assessment and Plan: The patient wears braces. (4) HTN (hypertension): Code(s): I10 - Essential (primary) hypertension Status: Chronic Assessment and Plan: Continue with lisinopril and atenolol Holding hydrochlorothiazide for now. (5) Pulmonary embolism on long-term anticoagulation therapy: Code(s): I26.99 - Other pulmonary embolism without acute cor pulmonale; Z79.01 - alf (current) use of anticoagulants Status: Chronic Assessment and Plan: Patient has IVC filter He is also on Eliquis which is on hold tonight. Subjective Date/time seen: 07/27/22 13:17 Interval history: Patient sitting up in bed with at bedside. Patient did consent to discuss medical care in front of his . Patient's only complaint at this time is left hip pain. Patient does have progressive neuropathy from bilateral elbows down and bilateral knees down. Patient uses leg braces toe walk. Patient recently did have left rotator cuff surgery making it difficult for him to ambulate using a walker which is a concern for him postop hip surgery. Review of Systems Review of Systems: All systems reviewed & are unremarkable except as noted in HPI and below Exam Narrative: GENERAL: Comfortable, no acute distress HENMT: moist mucous membranes EYES: EOM intact b/l RESPIRATORY: clear to auscultation CARDIO: RRR GI: soft, nontender, bowel sounds present SKIN: no rashes EXTREMITIES:Tenderness over left proximal anterior thigh. No bruising, swelling or redness. Objective Data Vital Signs Vital Signs: Vital Signs - 24 hr 07/26/22 14:33 07/26/22 16:50 07/26/22 16:50 Temperature 97.9 F Pulse Rate 74 76 76 Respiratory Rate 16 18 Blood Pressure 169/78 H 112/58 L 112/58 L Pulse Oximetry 100 100 100 Oxygen Delivery Room Air 07/26/22 17:35 07/26/22 18:21 07/26/22 19:56 Temperature 97.8 F 98.6 F Pulse Rate 75 78 Respiratory Rate 16 20 Blood Pressure 130/65 134/59 L Pulse Oximetry 100 100 Oxygen Delivery Room Air 07/27/22 03:25 07/27/22 09:08 07/27/22 09:08 Temperature 96.3 F L Pulse Rate 77 80 80 Respiratory Rate 18 18 Blood Pressure 110/56 L Pulse Oximetry 100 100 Oxygen Delivery Room Air 07/27/22 11:36 Temperature Pulse Rate Respiratory Rate Blood Pressure Pulse Oximetry 95 Oxygen Delivery Room Air Intake/Output Intake/Output: Intake & Output 07/24/22 07/25/22 07/26/22 07/27/22 23:59 23:59 23:59 23:59 Intake Total 440 1480 Output Total 1300 Balance 440 180 Meds/Results Medications: Active Medications Generic Name Dose Route Start Last Admin Trade Name Freq PRN Reason Stop Dose Admin Atenolol 25 mg 07/27/22 09:00 07/27/22 09:08 Atenolol 25 Mg Tablet PO 25 mg DAILY HARISH Administration Atorvastatin Calcium 10 mg
[2022-07-27 14:00] VITALS: BP 115/58; PULSE 77; RESP 18; TEMP 37.2; O2SAT 98
--- NOTE | 2022-07-27 15:35 | PM.CNOR ---
Assessment and Plan Assessment and plan (1) Closed intertrochanteric fracture: Qualifiers: Encounter type: initial encounter Fracture alignment: displaced Laterality: left Qualified Code(s): S72.142A - Displaced intertrochanteric fracture of left femur, initial encounter for closed fracture Code(s): S72.143A - Displaced intertrochanteric fracture of unspecified femur, initial encounter for closed fracture Status: Acute Assessment and Plan: 77-year-old gentleman with peripheral neuropathy and history of imbalance. Fall yesterday with left hip intertrochanteric fracture. Discussed nonoperative and operative treatment options with the patient. Risks and benefits of each as well as alternatives were reviewed. All of the patient's questions were answered. The risks of surgery reviewed including but not limited to: Neurovascular damage, wound complication, infection, blood clot, pulmonary embolus, stroke, myocardial infarction, and anesthetic risks up to and including . Continued pain and possible dysfunction were explained. Specific risks of the procedure including later recurrence of deformity. No guarantees were offered. If hardware used, discussed risk of failure/ breakage and possible need for removal. If complications occur, the patient understands the need for further treatment, possible further surgery. Patient verbalizes understanding and wishes to proceed. PLAN: Left hip reduction with intramedullary hip screw fixation. Plan Patient on Eliquis for history of blood clot / DVT/PE. Will require 2 days for blood thinner to wear off. Pain control and mechanical DVT prophylaxis in the interim. Plan surgical treatment when medically stable. History of Present Illness HPI Consult date: 07/27/22 Requesting physician: Liza Ndiaye MD Chief complaint: L Hip Fx Narrative: 77-year-old gentleman with severe peripheral neuropathy and instability who was at home yesterday. He lost his balance and fell onto his left side. Brought to the emergency room and radiographs found to have left hip intertrochanteric fracture. Admitted for further care. Review of Systems Constitutional: Constitutional: Denies fever(s) Eyes: Eyes: Denies blurry vision ENT: Reports Normal hearing present Cardiovascular: Cardiovascular: Denies chest pain and Denies dyspnea Respiratory: Respiratory: Denies dyspnea and Denies wheezing Gastrointestinal: Gastrointestinal: Denies abdominal pain Genitourinary: Genitourinary: Denies urinary urgency Musculoskeletal: Musculoskeletal: Reports as per HPI and Denies numbness Integumentary/Breasts: Skin/Breast: Denies changing lesions and Denies sores Neurologic: Reports Normal hearing present, Denies behavioral changes, Denies confusion, Denies numbness and Denies convulsions Psychiatric: Psychiatric: Denies behavioral changes, Denies confusion and Denies hallucinations Endocrine: Endocrine: Denies heat intolerance Hematologic/Lymphatic: Hematologic/Lymphatic: Denies easy bleeding Allergic/Immunologic: Allergic/Immunologic: Denies wheezing PMFSH Past Medical History Medical History Xjrfgsy-Coxql-Oqpbm disease Chronic anticoagulation Essential (primary) hypertension History of deep vein thrombosis Idiopathic neuropathy Pernicious anemia Personal history of other venous thrombosis and embolism Type 2 diabetes mellitus Surgical History Surgical History Amputated toe of left foot Tip of 2nd phalanges History of basal cell carcinoma excision History of cataract extraction History of cholecystectomy History of extraction of renal calculus History of inferior vena caval filter placement History of repair of left rotator cuff History of tonsillectomy and adenoidectomy Family History Family History (Reviewed 07/27/22 @ 15:36 by Philip Hennessy
[2022-07-27 17:06] LABS: Glucose Point of Care 150 mg/dl (65-105)
[2022-07-27 19:59] VITALS: BP 111/48; PULSE 84; RESP 20; TEMP 36.4; O2SAT 98
[2022-07-27 20:00] VITALS: PULSE 84; RESP 20; O2SAT 98
[2022-07-28] VITALS (19 sets, daily range): BP systolic 97–119; BP diastolic 42–54; PULSE 66–76; RESP 14–19; TEMP 35.9–36.9; O2SAT 99–100
[2022-07-28 00:21] LABS: Glucose Point of Care 140 mg/dl (65-105)
[2022-07-28] MEDS: fentaNYL CITRATE INJ (*CRX) 100 MCG/2 ML VIAL 50 MCG IV PUSH ×2 (02:54)
[2022-07-28 06:35] LABS: Glucose Point of Care 144 mg/dl (65-105)
[2022-07-28] MEDS: CYANOCOBALAMIN INJ 1,000 MCG/ML VIAL 1000 MCG IM (08:28)
[2022-07-28] MEDS: atenoloL 25 MG TABLET PO (08:32)
[2022-07-28] MEDS: lisinopriL 10 MG TABLET PO (08:32)
[2022-07-28] MEDS: EMPAGLIFLOZIN 25 MG TABLET PO (08:32)
[2022-07-28] MEDS: ATORVASTATIN 10 MG TABLET PO (08:32)
--- NOTE | 2022-07-28 09:36 | PM.IMPN ---
Progress Note: A&P Assessment and Plan (1) Closed intertrochanteric fracture: Qualifiers: Encounter type: initial encounter Fracture alignment: displaced Laterality: left Qualified Code(s): S72.142A - Displaced intertrochanteric fracture of left femur, initial encounter for closed fracture Code(s): S72.143A - Displaced intertrochanteric fracture of unspecified femur, initial encounter for closed fracture Status: Acute Assessment and Plan: Patient has a history of idiopathic peripheral neuropathy and he wears leg braces to aid in balance. Patient does not exactly remember why he had fallen. He was not sure if he had tripped due to the lack of feeling below the knee.Patient does have significant left hip pain. X-ray revealed intertrochanteric left proximal femur fracture Ortho has been consulted Continue with analgesic OR repair today. (2) Type 2 diabetes mellitus: Code(s): E11.9 - Type 2 diabetes mellitus without complications Status: Acute Assessment and Plan: Accu-Cheks every 6 hours with sliding scale insulin and hypoglycemic protocol A1c 7.4% Glucose stable. Continue Jardiance and aspart sliding scale insulin Q6 hours. Trulicity is non formulary. 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 (4) HTN (hypertension): Code(s): I10 - Essential (primary) hypertension Status: Chronic Assessment and Plan: Continue with lisinopril and atenolol Holding hydrochlorothiazide for now. (5) Pulmonary embolism on long-term anticoagulation therapy: Code(s): I26.99 - Other pulmonary embolism without acute cor pulmonale; Z79.01 - watermelon harvesting supervisor (current) use of anticoagulants Status: Chronic Assessment and Plan: Patient has IVC filter Holding Eliquis for hip surgery. Resume per Ortho recommendations. Plan CODE STATUS: FULL CODE Subjective Date/time seen: 07/28/22 09:36 Interval history: This is a 77-year-old male patient who took a step back in leaned too far back and fell landing on his left hip sustaining left intertrochanteric hip fracture. Attempted to see the patient multiple times today and he was in the OR for left hip fracture. Medical documentation, vitals, labs, imaging and nursing notes reviewed. Review of Systems Review of Systems: ROS unobtainable: Yes other (In OR) Exam Narrative: See physical assessment in orthopedic consult and OR notes. Objective Data Vital Signs Vital Signs: Vital Signs - 24 hr 07/27/22 11:36 07/27/22 14:00 07/27/22 19:59 Temperature 99 F 97.5 F L Pulse Rate 77 84 Respiratory Rate 18 20 Blood Pressure 115/58 L 111/48 L Pulse Oximetry 95 98 98 Oxygen Delivery Room Air 07/27/22 20:00 07/28/22 02:58 07/28/22 08:32 Temperature 96.6 F L Pulse Rate 84 74 76 Respiratory Rate 20 18 Blood Pressure 112/50 L Pulse Oximetry 98 99 Oxygen Delivery Room Air Intake/Output Intake/Output: Intake & Output 07/25/22 07/26/22 07/27/22 07/28/22 23:59 23:59 23:59 23:59 Intake Total 440 3850 0 Output Total 4300 1200 Balance 440 -450 -1200 Meds/Results Medications: Active Medications Generic Name Dose Route Start Last Admin Trade Name Freq PRN Reason Stop Dose Admin Atenolol 25 mg 07/27/22 09:00 07/28/22 08:32 Atenolol 25 Mg Tablet PO 25 mg DAILY HARISH Administration Atorvastatin Calcium 10 mg 07/27/22 09:00 07/28/22 08:32 Atorvastatin 10 Mg Tablet PO 10 mg DAILY HARISH Administration Cyanocobalamin 1,000 mcg 07/28/22 09:00 07/28/22 08:28 Cyanocobalamin Inj 1,000 Mcg/Ml Vial IM 1,000 mcg We@0900 HARISH Administration Dextrose 12.5 gm 07/27/22 00:17 Dextrose 50% 25 Gm/50 Ml Syringe IV PUSH PRN PRN Hypoglycemia Protocol Empagliflozin 25 mg 07/27/22 09:00 07/08
[2022-07-28] MEDS: ACETAMINOPHEN 500 MG TABLET 1000 MG PO (12:22)
[2022-07-28] MEDS: KETOROLAC 15 MG/ML VIAL (*BKC) IV PUSH (12:24)
[2022-07-28] MEDS: TRANEXAMIC ACID 1,000MG/ISO100 1,000 MG/100 ML BAG 200 MG IVPB (12:26)
--- NOTE | 2022-07-28 12:36 | WPDHPUPDATE1 ---
History and Physical Update Update Date/Time: 07/28/22 12:36 History and Physical has been reviewed, including an updated exam of the patient. There are NO changes in the patient's condition. Risks, benefits, and alternatives have been discussed and questions answered. Patient agrees to proceed with procedure.
[2022-07-28] MEDS: LACTATED RINGERS 1,000 ML 30 ML IV CONT (12:41)
--- NOTE | 2022-07-28 12:52 | WPDANESEPPF ---
Anes - Initial Pre Proc Eval Procedure: Operation Date: 07/28/22 13:00 Proposed Procedures p Left Hip Intertrochanteric Nail - Jerman Vazquez MD Date/Time: 07/28/22 12:52 Surgeon: Magdalene Moncada MD Pre Op Diagnosis: L Hip Fx Patient Data Age: 77 Gender: M Height: 1.88 m Weight: 84 kg Last Vital Signs Temp 36.4 C 07/28/22 12:10 Pulse 75 07/28/22 12:10 Resp 16 07/28/22 12:10 BP 116/52 L 07/28/22 12:10 Pulse Ox 100 07/28/22 12:10 O2 Del Method Room Air 07/28/22 12:10 Allergies Allergy/AdvReac Type Severity Reaction Status Date / Time cefepime Allergy Severe Unresponsiv Verified 07/27/22 08:50 e codeine Allergy Unknown severe Verified 07/26/22 17:38 itchy Home Medications Medication Instructions Recorded Confirmed Type blood-glucose meter (Saber SevenTouch #1 ea 09/21/19 07/26/22 Rx Verio Meter) blood sugar diagnostic (OneTouch #50 ea 05/04/21 07/26/22 Rx Verio test strips) needle (disp) 22 G 22 gauge x 1 #100 ea 08/12/21 07/26/22 Rx 1/2 (BD Short Bevel [place]) atorvastatin 10 mg tablet 10 mg PO DAILY #90 tabs 12/02/21 07/26/22 Rx empagliflozin 25 mg tablet 25 mg PO QAM #90 tabs 12/02/21 07/26/22 Rx (Jardiance) hydrochlorothiazide 12.5 mg tablet 12.5 mg PO DAILY #90 tabs 03/01/22 07/26/22 Rx lancets 33 gauge (OneTouch Delica #100 ea 03/08/22 07/26/22 Rx Plus Lancet) dulaglutide 1.5 mg/0.5 mL 1.5 mg (0.5 mL) subcut WEEKLY #2 mL 05/20/22 07/26/22 Rx subcutaneous pen injector (Trulicity) cyanocobalamin (vitamin B-12) 1,000 mcg IM WEEKLY 06/28/22 07/26/22 History 1,000 mcg/mL injection solution metformin 500 mg tablet,extended 500 mg PO BIDWM 06/28/22 07/26/22 History release 24 hr apixaban 5 mg tablet (Eliquis) 5 mg PO BID #180 tabs 07/20/22 07/26/22 Rx atenolol 25 mg tablet 25 mg PO DAILY 07/26/22 07/26/22 History lisinopril 10 mg PO DAILY 07/26/22 07/26/22 History Laboratory Tests 07/27/22 07/27/22 07/28/22 17:01 23:58 05:57 POC Capillary Glucose 150 mg/dl H mg/dl 140 mg/dl H mg/dl 144 mg/dl H mg/dl (65-105) (65-105) (65-105) Patient hx anesthesia problems: none Family hx anesthesia problems: none Results Review: All pre-operative results and documents have been reviewed as part of the pre-operative evaluation. [facility] Past Medical History Medical History Rdkizpu-Bfipf-Fmlyy disease Chronic anticoagulation Essential (primary) hypertension History of deep vein thrombosis Idiopathic neuropathy Pernicious anemia Personal history of other venous thrombosis and embolism Type 2 diabetes mellitus Surgical History Surgical History Amputated toe of left foot Tip of 2nd phalanges History of basal cell carcinoma excision History of cataract extraction History of cholecystectomy History of extraction of renal calculus History of inferior vena caval filter placement History of repair of left rotator cuff History of tonsillectomy and adenoidectomy Family History Family History Mother Family history of lung cancer Family history of malignant neoplasm of breast in first degree relative Father Hypertension Cerebrovascular accident DVT (deep venous thrombosis) Asthma Social History Social History Social History: Surrogate medical decision maker: Nona Browning, spouse. Code status: Full code. Smoking status: Former smoker Tobacco type: pipe and cigars Second hand tobacco smoke exposure: No Smoking end date: 05/09/93 Additional smoking assessment comments: quit in 1999 Alcohol intake: never Substance use: never Substance use type: does not use Lack of Transportation: No Lack of Food: Never True Current Housing: I Have Housing Concerned About Future Housing: No Difficul
[2022-07-28 13:22] LABS: Glucose Point of Care 120 mg/dl (65-105)
[2022-07-28] MEDS: CLINDAMYCIN 900 MG/D5W 50 ML 900 MG/50 ML PIGGYBACK 50 MG IVPB ×2 (13:22→21:08)
[2022-07-28] MEDS: BUPIVACAINE/EPINEPHRINE 0.25% 50 ML VIAL 10 ML INFILTRATE (13:22)
--- NOTE | 2022-07-28 14:39 | P.OP_ITS ---
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 Desires operative treatment. Description of Procedure After informed consent the operative extremity was marked in the preoperative holding area. Patient received intravenous antibiotics. The patient was taken to the operative room, placed in the supine position, general anesthesia induced by the anesthesia team, and was placed on a fracture table with longitudinal traction applied to the left leg. The hip fracture was reduced to near anatomic position and verified with image intensification. A time-out was performed confirming the patient, site of the surgery and plan. The left lower extremity was prepped and draped sterilely from the knee to the iliac crest region using a ChloraPrep skin solution. Incision was made just proximal to greater trochanter down to the subcutaneous tissues. Hemostasis controlled with electrocautery. Blunt dissection through the fascia to the tip of the greater trochanter. A starter awl was placed at the tip of the greater trochanter into the medullary canal of the femur. This was checked with image intensification and was in good position. Intramedullary guide ayah positioned. A one-step hand reaming done proximally. Intramedullary canal was reamed with a 12.5 millimeter flexible reamer. Measuring was then performed off of the guide ayah. Neck angle selected off of preoperative radiographs temp plating. 125 degree 11 X 420mm Nail opened on the back table and assembled. This was then inserted over the guide ayah to the correct depth. Guide ayah removed. Lag screw was then placed with a stab incision over the lateral femur using a 10 blade knife. Blunt dissection down to the lateral side of the bone. Soft tissue protectors placed. Guide pin placed in the center center position of the femoral head and measured. 100 millimeter x 10 millimeter lag screw placed to correct depth and verified with image intensification. Traction and released from the leg and compression of the fracture performed with the external compression device. Distal locking of the nail Performed with the outrigger device. Stab incision made with a 15 blade knife over the lateral distal thigh. Soft tissue protector placed drilling, measuring of the femur. 40 mm x 5 mm locking screw placed and checked with image intensification. Final image intensification confirm reduction of the fracture and placement of the hardware. Wounds then thoroughly irrigated with antibiotic solution. Fascia repaired with 0 Vicryl interrupted suture. Subcutaneous tissue repaired with 2 Vicryl Interrupted suture and skin repaired with etienne. Sterile dressings applied. Patient then awoke from anesthesia, extubated taken to recovery room stable condition. All sponge, needle and inst rument counts correct at the end the case. Implants Arthrex 125 degree 42 cm x 11 mm trochanteric nail, 100 mm x 10 mm lag screw, 40 mm x 5 mm distal locking screw. Estimated Blood Loss 100 Drains No Packing No Pathology None sent Complications None Condition Stable Disposition PACU [facility] Billing Surgery - Charge Forward: Surgery Billing ([id number])
[2022-07-28 15:03] LABS: Glucose Point of Care 142 mg/dl (65-105)
[2022-07-28] MEDS: fentaNYL CITRATE INJ (*CRX) 100 MCG/2 ML VIAL 25 MCG IV PUSH ×8 (15:09→15:34)
[2022-07-28] MEDS: SODIUM CHLORIDE 0.9% IV 1,000 ML 125 ML IV CONT (16:18)
[2022-07-28] MEDS: SENNA/DOCUSATE SODIUM TABLET 2 TAB PO (16:19)
[2022-07-28] MEDS: APIXABAN 5 MG TABLET PO (21:08)
[2022-07-28] MEDS: HYDROcodone/acetaminophen (*CRX) 7.5-325 MG TABLET 1 TAB PO (22:17)
[2022-07-28] MEDS: diazePAM (*CRX) 5 MG TABLET PO (22:18)
[2022-07-29] VITALS (8 sets, daily range): BP systolic 114–135; BP diastolic 47–55; PULSE 77–94; RESP 12–18; TEMP 36.6–37.4; O2SAT 98–100
[2022-07-29] MEDS: fentaNYL CITRATE INJ (*CRX) 100 MCG/2 ML VIAL 50 MCG IV PUSH ×7 (01:22→17:58)
[2022-07-29] MEDS: CLINDAMYCIN 900 MG/D5W 50 ML 900 MG/50 ML PIGGYBACK 50 MG IVPB ×2 (06:05→13:46)
--- NOTE | 2022-07-29 08:23 | PM.IMPN ---
Progress Note: A&P Assessment and Plan (1) Closed intertrochanteric fracture: Qualifiers: Encounter type: initial encounter Fracture alignment: displaced Laterality: left Qualified Code(s): S72.142A - Displaced intertrochanteric fracture of left femur, initial encounter for closed fracture Code(s): S72.143A - Displaced intertrochanteric fracture of unspecified femur, initial encounter for closed fracture Status: Acute Assessment and Plan: Patient has a history of idiopathic peripheral neuropathy and he wears leg braces to aid in balance. Patient does not exactly remember why he had fallen. He was not sure if he had tripped due to the lack of feeling below the knee.Patient does have significant left hip pain. X-ray revealed intertrochanteric left proximal femur fracture Ortho has been consulted Continue with analgesic 07/29 POD1 Intramedullary nailing left hip. Postop care per Ortho (2) Type 2 diabetes mellitus: Qualifiers: Diabetes mellitus halfway insulin use: without halfway use Code(s): E11.9 - Type 2 diabetes mellitus without complications Status: Acute Assessment and Plan: Accu-Cheks every 6 hours with sliding scale insulin and hypoglycemic protocol A1c 7.4% Glucose stable. Continue Jardiance and aspart sliding scale insulin Q6 hours. Trulicity is non formulary and patient's will bring in this medication from home. Resume metformin XR 500 mg BID 72 hours after fluoroscopy. 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 (4) HTN (hypertension): Code(s): I10 - Essential (primary) hypertension Status: Chronic Assessment and Plan: Continue with lisinopril and atenolol Holding hydrochlorothiazide for now. (5) Pulmonary embolism on long-term anticoagulation therapy: Code(s): I26.99 - Other pulmonary embolism without acute cor pulmonale; Z79.01 - ferry terminal supervisor (current) use of anticoagulants Status: Chronic Assessment and Plan: Patient has IVC filter Resumed Eliquis 5 mg BID postop Plan CODE STATUS: FULL CODE Disposition: from home. Patient reports he thinks he will need rehab. Time Spent With Patient Time with patient: 15 - 25 minutes Subjective Date/time seen: 07/29/22 08:23 He has pain to his left hip and thigh. He has been taking IV Fentanyl but it has not been lasting. He reports neuropathy bilaterally at baseline. He was not able to walk with therapy this morning. Review of Systems Review of Systems: All systems reviewed & are unremarkable except as noted in HPI and below Exam Narrative: General: No acute distress.? Non-toxic appearing. Neuro/Psych: Awake, alert and oriented x4 with clear speech. Pleasant and cooperative. Neuropathy bilateral extremities. No focal motor deficits. Skin: Skin fair, warm, and dry without rashes or lesions. Left hip dressing clean, dry and intact. HEENT: Normocephalic. Sclera is non-icteric. Pupils equal and round. Oral mucosa pink and moist. Neck: No JVD. Heart: S1 and S2 regular rate and rhythm. No murmurs, gallops, or rubs auscultated. Chest: Respirations even and unlabored. Lung sounds are clear to auscultation without wheezes, rhonchi, or rales. Abdomen: Soft, obese and non-tender to palpation.? Bowel sounds present in all 4 quadrants. No guarding. Extremities:? Braces to bilateral lower extremities. +CMS bilaterally. Objective Data Vital Signs Vital Signs: Vital Signs - 24 hr 07/28/22 08:32 07/28/22 08:30 07/28/22 12:10 Temperature 97.6 F Pulse Rate 76 75 Respiratory Rate 16 Blood Pressure 116/52 L Pulse Oximetry 100 Oxygen Delivery Room Air Room Air Oxygen Flow Rate 07/28/22 14:37 07/28/22 14:48 07/28/22 14:55 Temperature 97.6 F Pulse Rate 76 67 70 Respiratory Rate 16 14 18 B
[2022-07-29 08:46] LABS: Glucose Point of Care 131 mg/dl (65-105)
[2022-07-29 08:57] LABS: Mean Corpuscular HGB Conc 32.4 g/dl (32-36); Mean Corpuscular Hemoglobin 32.9 pg (26-34); Mean Corpuscular Volume 101.8 fl (80-100); Mean Platelet Volume 7.9 fl (7.4-10.4); Platelet Count Result 173 k/mm3 (150-375); Red Blood Count 3.34 M/mm3 (4.6-6.20); Red Cell Distribution Width 13.7 % (11.5-14.5); White Blood Count 9.2 K/mm3 (4.5-10.0)
--- NOTE | 2022-07-29 09:03 | WPDANESPN ---
Anes - Prog Note Post-Op Date/Time: 07/29/22 09:03 Cardiovascular status: normal Respiratory status: normal Airway patency: baseline Mental status: baseline Post-Op hydration status: normal Vital Signs: Last Vital Signs Temp 98.4 F 07/29/22 07:06 Pulse 88 07/29/22 07:06 Resp 16 07/29/22 07:06 BP 121/52 L 07/29/22 07:06 Pulse Ox 100 07/29/22 07:06 O2 Del Method Room Air 07/28/22 22:07 O2 Flow Rate 2 07/28/22 15:45 Pain Score (VAS): 0/10 I/O: Intake & Output 07/28/22 07/29/22 07/29/22 23:59 07:59 15:59 Intake Total 762 400 Output Total 250 1200 Balance 512 -800 Laboratory Tests 07/29/22 08:50 07/28/22 07/28/22 07/29/22 13:20 14:59 08:27 WBC RBC Hgb Hct MCV MCH MCHC RDW Plt Count MPV Sodium Potassium Chloride Carbon Dioxide Anion Gap BUN Creatinine Estim Creat Clear Calc Estimated GFR Glucose POC Capillary Glucose 120 H 142 H 131 H Calcium 07/29/22 07/29/22 08:50 08:50 WBC 9.2 RBC 3.34 L Hgb 11.0 L Hct 34.0 L MCV 101.8 H MCH 32.9 MCHC 32.4 RDW 13.7 Plt Count 173 MPV 7.9 Sodium Pending Potassium Pending Chloride Pending Carbon Dioxide Pending Anion Gap Pending BUN Pending Creatinine Pending Estim Creat Clear Calc Pending Estimated GFR Pending Glucose Pending POC Capillary Glucose Calcium Pending Post-procedural complaints: none Patient Feedback: Patient satisfied with anesthetic care.
[2022-07-29 09:07] LABS: Anion Gap 9 mmol/L (8-16); Blood Urea Nitrogen 14 mg/dL (9-20); Calcium 7.9 mg/dL (8.4-10.2); Carbon Dioxide 23 mmol/L (22-30); Chloride 102 mmol/L (98-107); Estimated CRCL calculation 102 ml/min; Estimated Glomerular Filt Rate > 60; Glucose 141 mg/dL (65-110); Potassium 4.1 mmol/L (3.4-5.0); Sodium 134 mmol/L (137-145)
[2022-07-29] MEDS: APIXABAN 5 MG TABLET PO ×2 (09:13→20:27)
[2022-07-29] MEDS: atenoloL 25 MG TABLET PO (09:13)
[2022-07-29] MEDS: lisinopriL 10 MG TABLET PO (09:13)
[2022-07-29] MEDS: SENNA/DOCUSATE SODIUM TABLET 2 TAB PO ×2 (09:13→16:07)
[2022-07-29] MEDS: ATORVASTATIN 10 MG TABLET PO (09:13)
[2022-07-29] MEDS: EMPAGLIFLOZIN 25 MG TABLET PO (09:13)
[2022-07-29] MEDS: polyethylene glycoL 3350 17 GM POWD.PACK PO (09:14)
--- NOTE | 2022-07-29 11:15 | PC.NURSE ---
On 07/29/22, the student, [Rishi Yuan], provided care and completed [facility] documentation on this patient. I have reviewed the student's documentation and agree with the findings.
[2022-07-29 12:05] LABS: Glucose Point of Care 223 mg/dl (65-105)
[2022-07-29] MEDS: INSULIN ASPART (*BKC) 100 UNITS/ML SUB-Q (12:53)
--- NOTE | 2022-07-29 12:54 | PM.PNORT ---
Progress Note: A&P Assessment and Plan (1) Closed intertrochanteric fracture: Qualifiers: Encounter type: initial encounter Fracture alignment: displaced Laterality: left Qualified Code(s): S72.142A - Displaced intertrochanteric fracture of left femur, initial encounter for closed fracture Code(s): S72.143A - Displaced intertrochanteric fracture of unspecified femur, initial encounter for closed fracture Status: Acute Assessment and Plan: POD #1: Left hip intramedullary hip screw Continue PT/OT. WBAT. Walker. HIGH FALL RISK. Continue pain control. Ice hip. Protect skin. DVT prophylaxis with resumed Eliquis. SCDs. Incentive Spirometry Use reviewed. Monitor Dressing. Change prior to discharge. Bowel Regimen. Dispo: SNF vs [facility] pending medical stability (2) History of repair of left rotator cuff: Code(s): Z98.890 - Other specified postprocedural states Status: Acute Assessment and Plan: Patient is having difficulty with postoperative PT due to recent RTC repair. He would benefit from a standing walker. The hospital does not have these available for use. We will send an order for outpatient corn picker and patient's family will bring for rehabilitation purposes. Subjective Subjective Date/Time Seen: 07/29/22 12:54 Post Op day: 1 Interval history: POD #1: Left hip intramedullary hip screw Patient sitting up in bed. Concerned about postoperative mobility due to inability to ambulate with the walkers provided by the hospital. Unable to sit in the chair as he feels it is too low. Difficulty due to recent left RTC repair. Complains of left thigh pain as well. Review of Systems Constitutional: Constitutional: Denies chills, Denies fatigue, Denies fever(s), Denies night sweats and Denies weakness Cardiovascular: Cardiovascular: Denies chest pain, Denies lightheadedness, Denies palpitations and Denies dyspnea Respiratory: Respiratory: Denies cough, Denies dyspnea and Denies wheezing Gastrointestinal: Gastrointestinal: Denies abdominal pain, Denies diarrhea, Denies nausea and Denies vomiting Musculoskeletal: Musculoskeletal: Reports arthralgias (left hip ), Reports joint swelling (left hip ) and Denies numbness Neurologic: Denies numbness and Denies weakness Endocrine: Endocrine: Denies fatigue and Denies palpitations Allergic/Immunologic: Allergic/Immunologic: Denies wheezing Exam Const: General: comfortable and no acute distress Orientation/consciousness: patient oriented x3 Limitations: no limitations Resp: Effort & Inspection: normal respiratory effort Cardio: Rate: regular rate Rhythm: regular rhythm GI: Inspection: non-distended Skin: General skin exam: normal color and wounds noted (incision left hip C/D/I ) Wounds: wounds noted (incision left hip C/D/I ) Neuro: General: patient oriented x3 Extrem: Left lower extremity: hip/thigh Details: tenderness Location: of the hip Location: laterally and anteriorly, swelling (thigh soft ) Location: of the hip (lateral. ), abnormal ROM (limitations with internal/external rotation and flexion/extension due to recent surgical intervention ) and other (incision lateral hip c/d/i. ), knee Details: normal to inspection and normal ROM; no tenderness and no swelling, lower leg (Negative Karla's Sign ) Details: no edema, ankle (foot drop brace in place. Patient has foot drop bilaterally as baseline. ) Details: normal to inspection, no edema and normal ROM; no tenderness, no swelling and no warmth and foot Details: normal capillary refill, toes with normal ROM, vascular exam Details: dorsalis pedis pulse present and motor-sensory exam light-touch normal in all toes; no tenderness, no ecchymosis and no crepitus Psych: Mental Status: mental status grossly normal Affect: normal affect Objective Data Vital Signs Vital Signs: Vital Signs - 24 hr 07/28/22 14:37 07/28/22 14:48 07/28/22 14:55 Temperature 36.4 C Pulse Rate
[2022-07-29] MEDS: HYDROcodone/acetaminophen (*CRX) 7.5-325 MG TABLET 1 TAB PO (13:44)
--- NOTE | 2022-07-29 14:14 | PC.NURSE ---
On 07/29/22, the student, [Perry Cheney], provided care and completed [facility] documentation on this patient. I have reviewed the student's documentation and agree with the findings.
[2022-07-29] MEDS: hydrOXYzine pamoate 25 MG CAPSULE 50 MG PO (14:38)
[2022-07-29 17:20] LABS: Glucose Point of Care 161 mg/dl (65-105)
[2022-07-29 20:16] LABS: Glucose Point of Care 184 mg/dl (65-105)
[2022-07-30] VITALS (7 sets, daily range): BP systolic 103–118; BP diastolic 42–50; PULSE 60–80; RESP 16–21; TEMP 36.6–36.9; O2SAT 98–100; BMI 10.0
[2022-07-30] MEDS: HYDROcodone/acetaminophen (*CRX) 7.5-325 MG TABLET 1 TAB PO ×4 (03:39→17:38)
[2022-07-30 07:06] LABS: Hematocrit 31.1 % (42.0-52.0); Hemoglobin 10.2 g/dL (14.0-18.0); Mean Corpuscular HGB Conc 32.8 g/dl (32-36); Mean Corpuscular Volume 103.7 fl (80-100); Mean Platelet Volume 8.1 fl (7.4-10.4); Platelet Count Result 159 k/mm3 (150-375); Red Cell Distribution Width 13.9 % (11.5-14.5); White Blood Count 7.2 K/mm3 (4.5-10.0)
[2022-07-30 07:15] LABS: Anion Gap 4 mmol/L (8-16); Blood Urea Nitrogen 18 mg/dL (9-20); Carbon Dioxide 23 mmol/L (22-30); Chloride 107 mmol/L (98-107); Estimated CRCL calculation 89 ml/min; Estimated Glomerular Filt Rate > 60; Glucose 139 mg/dL (65-110); Sodium 134 mmol/L (137-145)
--- NOTE | 2022-07-30 09:17 | PM.PNORT ---
Progress Note: A&P Assessment and Plan (1) Closed intertrochanteric fracture: Qualifiers: Encounter type: initial encounter Fracture alignment: displaced Laterality: left Qualified Code(s): S72.142A - Displaced intertrochanteric fracture of left femur, initial encounter for closed fracture Code(s): S72.143A - Displaced intertrochanteric fracture of unspecified femur, initial encounter for closed fracture Status: Acute Assessment and Plan: POD #2: Left hip intramedullary hip screw Continue PT/OT. WBAT. Walker. HIGH FALL RISK. Continue pain control. Ice hip. Protect skin. DVT prophylaxis with resumed Eliquis. SCDs. Incentive Spirometry Use reviewed. Monitor Dressing. Change today. Okay to apply Mepilex silver for ease of ADLs/showering, etc. Bowel Regimen. Dispo: SNF vs [facility] pending medical stability and care coordination. (2) History of repair of left rotator cuff: Code(s): Z98.890 - Other specified postprocedural states Status: Acute Assessment and Plan: Standing walker order received by patient/family. Plans to fruit picker at [facility] today. Can bring to hospital for assistance with PT. Subjective Subjective Date/Time Seen: 07/30/22 09:17 Post Op day: 2 Interval history: POD #2: Left hip intramedullary hip screw Patient sitting up in bed. Concerned about postoperative mobility due to inability to ambulate with the walkers provided by the hospital. Unable to sit in the chair as he feels it is too low. Difficulty due to recent left RTC repair. Complains of left thigh pain as well. Review of Systems Constitutional: Constitutional: Denies chills, Denies fatigue, Denies fever(s), Denies night sweats and Denies weakness Cardiovascular: Cardiovascular: Denies chest pain, Denies lightheadedness, Denies palpitations and Denies dyspnea Respiratory: Respiratory: Denies cough, Denies dyspnea and Denies wheezing Gastrointestinal: Gastrointestinal: Denies abdominal pain, Denies diarrhea, Denies nausea and Denies vomiting Musculoskeletal: Musculoskeletal: Reports arthralgias (left hip ), Reports joint swelling (left hip ) and Denies numbness Neurologic: Denies numbness and Denies weakness Endocrine: Endocrine: Denies fatigue and Denies palpitations Allergic/Immunologic: Allergic/Immunologic: Denies wheezing Exam Const: General: comfortable and no acute distress Orientation/consciousness: patient oriented x3 Limitations: no limitations Resp: Effort & Inspection: normal respiratory effort Cardio: Rate: regular rate Rhythm: regular rhythm GI: Inspection: non-distended Skin: General skin exam: normal color and wounds noted (incision left hip C/D/I ) Wounds: wounds noted (incision left hip C/D/I ) Neuro: General: patient oriented x3 Extrem: Left lower extremity: hip/thigh Details: tenderness Location: of the hip Location: laterally and anteriorly, swelling (thigh soft ) Location: of the hip (lateral. ), abnormal ROM (limitations with internal/external rotation and flexion/extension due to recent surgical intervention ) and other (incision lateral hip c/d/i. ), knee Details: normal to inspection and normal ROM; no tenderness and no swelling, lower leg (Negative Karla's Sign ) Details: no edema, ankle (foot drop brace in place. Patient has foot drop bilaterally as baseline. ) Details: normal to inspection, no edema and normal ROM; no tenderness, no swelling and no warmth and foot Details: normal capillary refill, toes with normal ROM, vascular exam Details: dorsalis pedis pulse present and motor-sensory exam light-touch normal in all toes; no tenderness, no ecchymosis and no crepitus Psych: Mental Status: mental status grossly normal Affect: normal affect Objective Data Vital Signs Vital Signs: Vital Signs - 24 hr 07/29/22 09:20 07/29/22 10:39 07/29/22 10:00 Temperature 36.6 C Pulse Rate 94 94 Respiratory Rate 16 16 Blood Pressure 114/47 L Pul
[2022-07-30 09:19] LABS: Glucose Point of Care 135 mg/dl (65-105)
--- NOTE | 2022-07-30 09:32 | PM.IMPN ---
Progress Note: A&P Assessment and Plan (1) Closed intertrochanteric fracture: Qualifiers: Encounter type: initial encounter Fracture alignment: displaced Laterality: left Qualified Code(s): S72.142A - Displaced intertrochanteric fracture of left femur, initial encounter for closed fracture Code(s): S72.143A - Displaced intertrochanteric fracture of unspecified femur, initial encounter for closed fracture Status: Acute Assessment and Plan: Patient has a history of idiopathic peripheral neuropathy and he wears leg braces to aid in balance. Patient does not exactly remember why he had fallen. He was not sure if he had tripped due to the lack of feeling below the knee.Patient does have significant left hip pain. X-ray revealed intertrochanteric left proximal femur fracture Ortho has been consulted Continue with analgesic POD2 Intramedullary nailing left hip (done 07/28/22). Postop care per Ortho (2) Type 2 diabetes mellitus: Qualifiers: Diabetes mellitus mcfp insulin use: without buttermaker helper use Code(s): E11.9 - Type 2 diabetes mellitus without complications Status: Acute Assessment and Plan: Accu-Cheks every 6 hours with sliding scale insulin and hypoglycemic protocol A1c 7.4% Glucose stable. Continue Jardiance and aspart sliding scale insulin Q6 hours. Trulicity is non formulary and administer home medication today. Resume metformin XR 500 mg BID 72 hours after fluoroscopy. 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 (4) HTN (hypertension): Code(s): I10 - Essential (primary) hypertension Status: Chronic Assessment and Plan: Continue with lisinopril and atenolol Holding hydrochlorothiazide for now. (5) Pulmonary embolism on long-term anticoagulation therapy: Code(s): I26.99 - Other pulmonary embolism without acute cor pulmonale; Z79.01 - assisted (current) use of anticoagulants Status: Chronic Assessment and Plan: Patient has IVC filter Continued Eliquis 5 mg BID postop Plan CODE STATUS: FULL CODE Disposition: from home. Patient reports he thinks he will need rehab. Time Spent With Patient Time with patient: 15 - 25 minutes Subjective Date/time seen: 07/30/22 09:32 Interval history: No new complaints or overnight events. He has some pain to his left thigh but has been working with PT/OT and oral medications help with pain. He is passing gas, but no BM. No chest pain, SOB, abd pain, N/V. Review of Systems Review of Systems: All systems reviewed & are unremarkable except as noted in HPI and below Exam Narrative: General: No acute distress.? Non-toxic appearing. Neuro/Psych: Awake, alert and oriented x4 with clear speech. Pleasant and cooperative. Neuropathy bilateral extremities. No focal motor deficits. Skin: Skin fair, warm, and dry without rashes or lesions. Left hip dressing clean, dry and intact. HEENT: Normocephalic. Sclera is non-icteric. Pupils equal and round. Oral mucosa pink and moist. Neck: No JVD. Heart: S1 and S2 regular rate and rhythm. No murmurs, gallops, or rubs auscultated. Chest: Respirations even and unlabored. Lung sounds are clear to auscultation without wheezes, rhonchi, or rales. Abdomen: Soft, obese and non-tender to palpation.? Bowel sounds present in all 4 quadrants. No guarding. Extremities:? Braces to bilateral lower extremities. +CMS bilaterally. Objective Data Vital Signs Vital Signs: Vital Signs - 24 hr 07/29/22 10:39 07/29/22 10:00 07/29/22 10:36 Temperature 97.9 F Pulse Rate 94 94 Respiratory Rate 16 16 Blood Pressure 114/47 L Pulse Oximetry 100 98 Oxygen Delivery Room Air Room Air 07/29/22 14:00 07/29/22 19:27 07/29/22 20:00 Temperature 99.3 F 98.9 F Pulse Rate 84 80 78 Respiratory Rate
[2022-07-30] MEDS: APIXABAN 5 MG TABLET PO ×2 (10:29→20:34)
[2022-07-30] MEDS: lisinopriL 10 MG TABLET PO (10:29)
[2022-07-30] MEDS: atenoloL 25 MG TABLET PO (10:30)
[2022-07-30] MEDS: EMPAGLIFLOZIN 25 MG TABLET PO (10:30)
[2022-07-30] MEDS: polyethylene glycoL 3350 17 GM POWD.PACK PO (10:30)
[2022-07-30] MEDS: ATORVASTATIN 10 MG TABLET PO (10:30)
[2022-07-30] MEDS: SENNA/DOCUSATE SODIUM TABLET 2 TAB PO ×2 (10:30→17:07)
--- NOTE | 2022-07-30 10:43 | PHAR ---
HOME MEDICATION VERIFIED BY PHARMACY TRULICITY 1.5MG/0.5ML 1.5MG UNDER THE SKIN WEEKLY 1 PEN
[2022-07-30 12:10] LABS: Glucose Point of Care 200 mg/dl (65-105)
[2022-07-30 17:26] LABS: Glucose Point of Care 151 mg/dl (65-105)
[2022-07-31 00:42] LABS: Glucose Point of Care 140 mg/dl (65-105)
[2022-07-31] MEDS: HYDROcodone/acetaminophen (*CRX) 7.5-325 MG TABLET 1 TAB PO ×5 (00:43→22:29)
[2022-07-31 01:14] VITALS: TEMP 36.7
[2022-07-31 05:47] LABS: Glucose Point of Care 155 mg/dl (65-105)
[2022-07-31 05:53] VITALS: BP 104/42; PULSE 76; RESP 16; TEMP 37.1; O2SAT 100
[2022-07-31] MEDS: polyethylene glycoL 3350 17 GM POWD.PACK PO (08:47)
[2022-07-31] MEDS: ATORVASTATIN 10 MG TABLET PO (08:47)
[2022-07-31] MEDS: SENNA/DOCUSATE SODIUM TABLET 2 TAB PO ×2 (08:47→16:51)
[2022-07-31 08:48] VITALS: PULSE 76; RESP 16; O2SAT 100
[2022-07-31] MEDS: atenoloL 25 MG TABLET PO (08:48)
[2022-07-31] MEDS: APIXABAN 5 MG TABLET PO ×2 (08:48→20:52)
[2022-07-31] MEDS: EMPAGLIFLOZIN 25 MG TABLET PO (08:48)
[2022-07-31] MEDS: lisinopriL 10 MG TABLET PO (08:48)
[2022-07-31 08:52] LABS: Glucose Point of Care 117 mg/dl (65-105)
[2022-07-31 12:13] LABS: Glucose Point of Care 129 mg/dl (65-105)
[2022-07-31 14:00] VITALS: BP 122/60; PULSE 92; RESP 18; TEMP 37.2; O2SAT 100
--- NOTE | 2022-07-31 14:36 | PM.IMPN ---
Progress Note: A&P Assessment and Plan (1) Closed intertrochanteric fracture: Qualifiers: Encounter type: initial encounter Fracture alignment: displaced Laterality: left Qualified Code(s): S72.142A - Displaced intertrochanteric fracture of left femur, initial encounter for closed fracture Code(s): S72.143A - Displaced intertrochanteric fracture of unspecified femur, initial encounter for closed fracture Status: Acute Assessment and Plan: Patient has a history of idiopathic peripheral neuropathy and he wears leg braces to aid in balance. Patient does not exactly remember why he had fallen. He was not sure if he had tripped due to the lack of feeling below the knee.Patient does have significant left hip pain. X-ray revealed intertrochanteric left proximal femur fracture Ortho has been consulted Continue with analgesic POD3 Intramedullary nailing left hip (done 07/28/22). Postop care per Ortho Add kpad and trial muscle relaxer for thigh pain. Add bisacodyl suppository PRN. He is on miralax PO daily and senna plus 2 tabs BID scheduled. (2) Type 2 diabetes mellitus: Qualifiers: Diabetes mellitus chcf insulin use: without chcf use Diabetes mellitus complication status: without complication Qualified Code(s): E11.9 - Type 2 diabetes mellitus without complications Code(s): E11.9 - Type 2 diabetes mellitus without complications Status: Acute Assessment and Plan: Accu-Cheks every 6 hours with sliding scale insulin and hypoglycemic protocol A1c 7.4% Glucose stable. Continue Jardiance and aspart sliding scale insulin Q6 hours. Anastasia is non formulary and administer home medication, dose given 07/30; He usually takes this on Wednesdays. Resume metformin XR 500 mg BID 72 hours after fluoroscopy. 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 (4) HTN (hypertension): Code(s): I10 - Essential (primary) hypertension Status: Chronic Assessment and Plan: Continue with lisinopril and atenolol BP soft, holding hydrochlorothiazide for now. (5) Pulmonary embolism on long-term anticoagulation therapy: Code(s): I26.99 - Other pulmonary embolism without acute cor pulmonale; Z79.01 - supervisor intermediates (current) use of anticoagulants Status: Chronic Assessment and Plan: Patient has IVC filter Continued Eliquis 5 mg BID postop Plan CODE STATUS: FULL CODE Disposition: from home. Patient reports he thinks he will need rehab. Time Spent With Patient Time with patient: 15 - 25 minutes Subjective Date/time seen: 07/31/22 14:36 Interval history: He still has some muscle pain to his anterior left thigh. Ice did not help. He still has not had a BM but is passing gas. No abdominal pain, N/V, dysuria, chest pain or SOB. He is awaiting a bed at rehab. Review of Systems Review of Systems: All systems reviewed & are unremarkable except as noted in HPI and below Exam Narrative: General: No acute distress.? Non-toxic appearing. Neuro/Psych: Awake, alert and oriented x4 with clear speech. Pleasant and cooperative. Neuropathy bilateral extremities. No focal motor deficits. Skin: Skin fair, warm, and dry without rashes or lesions. Left hip dressing clean, dry and intact. HEENT: Sclera is non-icteric. Pupils equal and round. Oral mucosa pink and moist. Neck: No JVD. Heart: S1 and S2 regular rate and rhythm. No murmurs, gallops, or rubs auscultated. Chest: Respirations even and unlabored. Lung sounds are clear to auscultation without wheezes, rhonchi, or rales. Abdomen: Soft, obese and non-tender to palpation.? Bowel sounds present in all 4 quadrants. No guarding. Extremities:? Braces to bilateral lower extremities. +CMS bilaterally. Objective Data Vital Signs Vital Signs: Vital Signs - 24 h
[2022-07-31 17:59] LABS: Glucose Point of Care 158 mg/dl (65-105)
[2022-07-31 21:12] LABS: Glucose Point of Care 179 mg/dl (65-105)
[2022-07-31 21:52] VITALS: BP 113/59; PULSE 106; RESP 18; TEMP 36.6; O2SAT 99
[2022-08-01] MEDS: HYDROcodone/acetaminophen (*CRX) 7.5-325 MG TABLET 1 TAB PO ×3 (03:37→23:12)
[2022-08-01 05:48] VITALS: BP 106/54; PULSE 82; RESP 16; TEMP 36.6; O2SAT 100
[2022-08-01 08:35] LABS: Glucose Point of Care 129 mg/dl (65-105)
[2022-08-01 08:42] VITALS: PULSE 84
[2022-08-01] MEDS: APIXABAN 5 MG TABLET PO ×2 (08:42→20:24)
[2022-08-01] MEDS: atenoloL 25 MG TABLET PO (08:42)
[2022-08-01] MEDS: SENNA/DOCUSATE SODIUM TABLET 2 TAB PO ×2 (08:42→16:57)
[2022-08-01] MEDS: polyethylene glycoL 3350 17 GM POWD.PACK PO (08:42)
[2022-08-01] MEDS: EMPAGLIFLOZIN 25 MG TABLET PO (08:43)
[2022-08-01] MEDS: lisinopriL 10 MG TABLET PO (08:43)
[2022-08-01] MEDS: BISACODYL 10 MG SUPPOSITORY RECTAL (08:43)
[2022-08-01] MEDS: metFORMIN HCL XR 500 MG TAB.SR.24H PO ×2 (08:43→16:57)
[2022-08-01] MEDS: ATORVASTATIN 10 MG TABLET PO (08:43)
[2022-08-01 09:55] VITALS: PULSE 84; RESP 16; O2SAT 100
[2022-08-01 12:15] LABS: Glucose Point of Care 201 mg/dl (65-105)
--- NOTE | 2022-08-01 12:19 | PM.IMPN ---
Progress Note: A&P Assessment and Plan (1) Closed intertrochanteric fracture: Qualifiers: Encounter type: initial encounter Fracture alignment: displaced Laterality: left Qualified Code(s): S72.142A - Displaced intertrochanteric fracture of left femur, initial encounter for closed fracture Code(s): S72.143A - Displaced intertrochanteric fracture of unspecified femur, initial encounter for closed fracture Status: Acute Assessment and Plan: Patient has a history of idiopathic peripheral neuropathy and he wears leg braces to aid in balance. Patient does not exactly remember why he had fallen. He was not sure if he had tripped due to the lack of feeling below the knee.Patient does have significant left hip pain. X-ray revealed intertrochanteric left proximal femur fracture Ortho has been consulted Continue with analgesic POD3 Intramedullary nailing left hip (done 07/28/22). Postop care per Ortho Add kpad and trial muscle relaxer for thigh pain. Add bisacodyl suppository PRN. He is on miralax PO daily and senna plus 2 tabs BID scheduled. 08/01 BM today. (2) Type 2 diabetes mellitus: Qualifiers: Diabetes mellitus complication status: without complication Diabetes mellitus renal nurse insulin use: without renal nurse use Qualified Code(s): E11.9 - Type 2 diabetes mellitus without complications Code(s): E11.9 - Type 2 diabetes mellitus without complications Status: Acute Assessment and Plan: Accu-Cheks every 6 hours with sliding scale insulin and hypoglycemic protocol A1c 7.4% Glucose stable. Continue Jardiance and aspart sliding scale insulin Q6 hours. [facility] and administer home medication, dose given 07/30; He usually takes this on Wednesdays. Resume metformin XR 500 mg BID 72 hours after fluoroscopy on 08/01/22 (3) Idiopathic neuropathy: Code(s): G60.9 - Hereditary and idiopathic neuropathy, unspecified Status: Chronic Assessment and Plan: chronic, the patient wears braces. (4) HTN (hypertension): Code(s): I10 - Essential (primary) hypertension Status: Chronic Assessment and Plan: Continue with lisinopril and atenolol BP soft, holding hydrochlorothiazide for now. Resume prior to discharge if BP>130/80 (5) Pulmonary embolism on long-term anticoagulation therapy: Code(s): I26.99 - Other pulmonary embolism without acute cor pulmonale; Z79.01 - half-way (current) use of anticoagulants Status: Chronic Assessment and Plan: Patient has IVC filter Continued Eliquis 5 mg BID postop Plan CODE STATUS: FULL CODE Disposition: from home. Pending rehab placement. Time Spent With Patient Time with patient: 15 - 25 minutes Subjective Date/time seen: 08/01/22 12:19 Interval history: His left thigh pain is improved with a heating pad. He did better with therapy today and had 1 BM after getting a suppository. He has no other complaints, concerns, or overnight events noted. He is awaiting rehab authorization. Review of Systems Review of Systems: All systems reviewed & are unremarkable except as noted in HPI and below Exam Narrative: General: No acute distress.? Non-toxic appearing. Neuro/Psych: Awake, alert and oriented x4 with clear speech. Pleasant and cooperative. Neuropathy bilateral extremities. No focal motor deficits. Skin: Skin fair, warm, and dry without rashes or lesions. Left hip dressing clean, dry and intact. HEENT: Sclera is non-icteric. Pupils equal and round. Oral mucosa pink and moist. Neck: No JVD. Heart: S1 and S2 regular rate and rhythm. No murmurs, gallops, or rubs auscultated. Chest: Respirations even and unlabored. Lung sounds are clear to auscultation without wheezes, rhonchi, or rales. Abdomen: Soft, obese and non-tender to palpation.? Bowel sounds present in all 4 quadrants. No guarding. Extremities:? Braces to bilateral lower extremities. +CMS bilaterally.
[2022-08-01] MEDS: INSULIN ASPART (*BKC) 100 UNITS/ML SUB-Q (12:22)
[2022-08-01 13:49] VITALS: BP 120/68; PULSE 92; RESP 16; TEMP 36.5; O2SAT 99
[2022-08-01 16:42] LABS: Glucose Point of Care 156 mg/dl (65-105)
[2022-08-01 20:00] VITALS: PULSE 86; RESP 18; O2SAT 100
[2022-08-01 20:33] LABS: Glucose Point of Care 135 mg/dl (65-105)
[2022-08-01 21:26] VITALS: BP 113/57; PULSE 86; RESP 18; TEMP 36.8; O2SAT 100
[2022-08-02 05:11] VITALS: BP 105/44; PULSE 80; RESP 20; TEMP 36.6; O2SAT 96
[2022-08-02] MEDS: HYDROcodone/acetaminophen (*CRX) 7.5-325 MG TABLET 1 TAB PO ×4 (08:08→23:40)
[2022-08-02] MEDS: lisinopriL 10 MG TABLET PO (08:08)
[2022-08-02 08:09] VITALS: PULSE 80
[2022-08-02] MEDS: atenoloL 25 MG TABLET PO (08:09)
[2022-08-02 08:10] VITALS: RESP 20; O2SAT 96
[2022-08-02] MEDS: EMPAGLIFLOZIN 25 MG TABLET PO (08:10)
[2022-08-02] MEDS: ATORVASTATIN 10 MG TABLET PO (08:10)
[2022-08-02] MEDS: metFORMIN HCL XR 500 MG TAB.SR.24H PO ×2 (08:10→16:18)
[2022-08-02] MEDS: APIXABAN 5 MG TABLET PO ×2 (08:10→20:27)
[2022-08-02 08:51] LABS: Glucose Point of Care 135 mg/dl (65-105)
[2022-08-02 12:05] LABS: Glucose Point of Care 161 mg/dl (65-105)
[2022-08-02 13:57] VITALS: BP 138/62; PULSE 67; RESP 16; TEMP 36.8; O2SAT 99
--- NOTE | 2022-08-02 14:39 | PM.IMPN ---
Progress Note: A&P Assessment and Plan (1) Closed intertrochanteric fracture: Qualifiers: Encounter type: initial encounter Fracture alignment: displaced Laterality: left Qualified Code(s): S72.142A - Displaced intertrochanteric fracture of left femur, initial encounter for closed fracture Code(s): S72.143A - Displaced intertrochanteric fracture of unspecified femur, initial encounter for closed fracture Status: Acute Assessment and Plan: Patient has a history of idiopathic peripheral neuropathy and he wears leg braces to aid in balance. Patient does not exactly remember why he had fallen. He was not sure if he had tripped due to the lack of feeling below the knee.Patient does have significant left hip pain. X-ray revealed intertrochanteric left proximal femur fracture Ortho has been consulted Continue with analgesic POD3 Intramedullary nailing left hip (done 07/28/22). Postop care per Ortho Add kpad and trial muscle relaxer for thigh pain. Added bisacodyl suppository PRN. He is on miralax PO daily and senna plus 2 tabs BID scheduled. Awaiting rehab placement (2) Type 2 diabetes mellitus: Qualifiers: Diabetes mellitus complication status: without complication Diabetes mellitus half-way insulin use: without extermination inspector use Qualified Code(s): E11.9 - Type 2 diabetes mellitus without complications Code(s): E11.9 - Type 2 diabetes mellitus without complications Status: Chronic Assessment and Plan: Non-insulin dependent diabetes, Accu-Cheks every 6 hours with sliding scale insulin and hypoglycemic protocol A1c 7.4% Glucose stable. Continue Jardiance and aspart sliding scale insulin Q6 hours. [facility] is non formulary and administer home medication, dose given 07/30; He usually takes this on Wednesdays. Resume metformin XR 500 mg BID 72 hours after fluoroscopy on 08/01/22 Stable (3) Idiopathic neuropathy: Code(s): G60.9 - Hereditary and idiopathic neuropathy, unspecified Status: Chronic Assessment and Plan: chronic, the patient wears braces. (4) HTN (hypertension): Code(s): I10 - Essential (primary) hypertension Status: Chronic Assessment and Plan: Continue with lisinopril and atenolol BP soft, holding hydrochlorothiazide for now. Resume prior to discharge if BP>130/80 (5) Pulmonary embolism on long-term anticoagulation therapy: Code(s): I26.99 - Other pulmonary embolism without acute cor pulmonale; Z79.01 - long-term (current) use of anticoagulants Status: Chronic Assessment and Plan: Patient has IVC filter Continued Eliquis 5 mg BID postop Plan CODE STATUS: FULL CODE Disposition: from home. Pending rehab placement. Time Spent With Patient Time with patient: 15 - 25 minutes Subjective Date/time seen: 08/02/22 14:39 Interval history: He reports 3 BMs yesterday and today that are starting to be loose. He has not other new complaints or concerns. Patient is waiting for rehab authorization. Review of Systems Review of Systems: All systems reviewed & are unremarkable except as noted in HPI and below Exam Narrative: General: No acute distress.? Non-toxic appearing. Neuro/Psych: AOx4 with clear speech. Pleasant and cooperative. Neuropathy bilateral extremities. No focal motor deficits. Skin: Skin fair, warm, and dry without rashes or lesions. Left hip dressing clean, dry and intact. HEENT: Sclera is non-icteric. Pupils equal and round. Oral mucosa pink and moist. Neck: unremarkable. Heart: S1 and S2 regular rate and rhythm. No murmurs, gallops, or rubs auscultated. Chest: Lung sounds are clear to auscultation without wheezes, rhonchi, or rales. Abdomen: Soft, obese and non-tender to palpation.? Bowel sounds present in all 4 quadrants. Extremities:? +CMS bilaterally. Objective Data Vital Signs Vital Signs: Vital Signs - 24 hr 08/01/22 21:26 08/01/22 20:00 07/08
[2022-08-02 17:05] LABS: Glucose Point of Care 136 mg/dl (65-105)
[2022-08-02 20:30] VITALS: BP 98/40; PULSE 69; RESP 18; TEMP 36.6; O2SAT 97
[2022-08-02 21:00] LABS: Glucose Point of Care 224 mg/dl (65-105)
[2022-08-03] MEDS: CYCLOBENZAPRINE HCL 5 MG TABLET PO (04:34)
[2022-08-03 05:21] VITALS: BP 99/37; PULSE 64; RESP 18; TEMP 36.6; O2SAT 96
[2022-08-03] MEDS: HYDROcodone/acetaminophen (*CRX) 7.5-325 MG TABLET 1 TAB PO ×3 (05:36→17:21)
[2022-08-03 06:02] LABS: Hematocrit 35.7 % (42.0-52.0); Hemoglobin 11.4 g/dL (14.0-18.0); Mean Corpuscular HGB Conc 31.9 g/dl (32-36); Mean Corpuscular Hemoglobin 33.4 pg (26-34); Mean Corpuscular Volume 104.7 fl (80-100); Mean Platelet Volume 8.5 fl (7.4-10.4); Platelet Count Result 244 k/mm3 (150-375); Red Blood Count 3.41 M/mm3 (4.6-6.20); White Blood Count 5.9 K/mm3 (4.5-10.0)
[2022-08-03 06:13] LABS: Anion Gap 5 mmol/L (8-16); Blood Urea Nitrogen 17 mg/dL (9-20); Calcium 8.8 mg/dL (8.4-10.2); Carbon Dioxide 30 mmol/L (22-30); Chloride 101 mmol/L (98-107); Estimated CRCL calculation 89 ml/min; Estimated Glomerular Filt Rate > 60; Glucose 146 mg/dL (65-110); Potassium 4.2 mmol/L (3.4-5.0); Sodium 136 mmol/L (137-145)
[2022-08-03 08:01] LABS: Glucose Point of Care 136 mg/dl (65-105)
[2022-08-03 08:32] VITALS: BP 107/58; PULSE 68; O2SAT 99
[2022-08-03 08:35] VITALS: PULSE 68
[2022-08-03] MEDS: atenoloL 25 MG TABLET PO (08:35)
[2022-08-03] MEDS: EMPAGLIFLOZIN 25 MG TABLET PO (08:35)
[2022-08-03] MEDS: APIXABAN 5 MG TABLET PO ×2 (08:35→21:09)
[2022-08-03] MEDS: ATORVASTATIN 10 MG TABLET PO (08:35)
[2022-08-03] MEDS: lisinopriL 10 MG TABLET PO (08:36)
[2022-08-03] MEDS: metFORMIN HCL XR 500 MG TAB.SR.24H PO ×2 (08:36→17:23)
[2022-08-03] MEDS: hydroCHLOROthiazide 12.5 MG CAPSULE PO (08:36)
--- NOTE | 2022-08-03 10:06 | PM.IMPN ---
Progress Note: A&P Assessment and Plan (1) Closed intertrochanteric fracture: Qualifiers: Encounter type: initial encounter Fracture alignment: displaced Laterality: left Qualified Code(s): S72.142A - Displaced intertrochanteric fracture of left femur, initial encounter for closed fracture Code(s): S72.143A - Displaced intertrochanteric fracture of unspecified femur, initial encounter for closed fracture Status: Acute Assessment and Plan: Patient has a history of idiopathic peripheral neuropathy and he wears leg braces to aid in balance. Patient does not exactly remember why he had fallen. He was not sure if he had tripped due to the lack of feeling below the knee.Patient does have significant left hip pain. X-ray revealed intertrochanteric left proximal femur fracture Ortho has been consulted Continue with analgesic POD3 Intramedullary nailing left hip (done 07/28/22). Postop care per Ortho Add kpad and trial muscle relaxer for thigh pain. bisacodyl suppository PRN. He is on miralax PO daily and senna plus 2 tabs BID scheduled. Awaiting rehab placement (2) Type 2 diabetes mellitus: Qualifiers: Diabetes mellitus complication status: without complication Diabetes mellitus seal skinner insulin use: without seal skinner use Qualified Code(s): E11.9 - Type 2 diabetes mellitus without complications Code(s): E11.9 - Type 2 diabetes mellitus without complications Status: Chronic Assessment and Plan: Non-insulin dependent diabetes, Accu-Cheks every 6 hours with sliding scale insulin and hypoglycemic protocol A1c 7.4% Glucose stable. Continue Jardiance and aspart sliding scale insulin Q6 hours. [facility] is non formulary and administer home medication, dose given 07/30; He usually takes this on Wednesdays. Resumed metformin XR 500 mg BID 72 hours after fluoroscopy on 08/01/22 Stable (3) Idiopathic neuropathy: Code(s): G60.9 - Hereditary and idiopathic neuropathy, unspecified Status: Chronic Assessment and Plan: chronic, the patient wears braces. (4) HTN (hypertension): Code(s): I10 - Essential (primary) hypertension Status: Chronic Assessment and Plan: Continue with lisinopril and atenolol BP soft, holding hydrochlorothiazide for now. Resume prior to discharge if BP>130/80 (5) Pulmonary embolism on long-term anticoagulation therapy: Code(s): I26.99 - Other pulmonary embolism without acute cor pulmonale; Z79.01 - health communications specialist (current) use of anticoagulants Status: Chronic Assessment and Plan: Patient has IVC filter Continued Eliquis 5 mg BID postop Plan CODE STATUS: FULL CODE Disposition: from home. Pending rehab placement. Time Spent With Patient Time with patient: 15 - 25 minutes Subjective Date/time seen: 08/03/22 10:06 Interval history: No new physical complaints. He is frustrated that he is still waiting on his insurance. Exam Narrative: General: No acute distress.? Non-toxic appearing. Neuro/Psych: AOx4 with clear speech. Pleasant and cooperative. Neuropathy bilateral extremities. No focal motor deficits. Skin: Skin fair, warm, and dry without rashes or lesions. Left hip dressing clean, dry and intact. HEENT: Sclera is non-icteric. Pupils equal and round. Oral mucosa pink and moist. Neck: unremarkable. Heart: S1 and S2 regular rate and rhythm. No murmurs, gallops, or rubs auscultated. Chest: Lung sounds are clear to auscultation without wheezes, rhonchi, or rales. Abdomen: Soft, obese and non-tender to palpation.? Bowel sounds present in all 4 quadrants. Extremities:? +CMS bilaterally. Objective Data Vital Signs Vital Signs: Vital Signs - 24 hr 08/02/22 13:57 08/02/22 20:30 08/03/22 05:21 Temperature 98.3 F 97.8 F 97.8 F Pulse Rate 67 69 64 Respiratory Rate 16 18 18 Blood Pressure 138/62 98/40 L 99/37 L Pulse Oximetry 99 97 96 Oxygen Delivery 08/03/22
--- NOTE | 2022-08-03 11:25 | PM.PNORT ---
Progress Note: A&P Assessment and Plan (1) Closed intertrochanteric fracture: Qualifiers: Encounter type: initial encounter Fracture alignment: displaced Laterality: left Qualified Code(s): S72.142A - Displaced intertrochanteric fracture of left femur, initial encounter for closed fracture Code(s): S72.143A - Displaced intertrochanteric fracture of unspecified femur, initial encounter for closed fracture Status: Acute Assessment and Plan: POD #6: Left hip intramedullary hip screw Continue PT/OT. WBAT. Walker. HIGH FALL RISK. Continue pain control. Ice hip. Protect skin. DVT prophylaxis with resumed Eliquis. SCDs. Incentive Spirometry Use reviewed. Monitor Dressing. Dispo: SNF vs [facility] pending Approval. (2) History of repair of left rotator cuff: Code(s): Z98.890 - Other specified postprocedural states Status: Acute Assessment and Plan: Standing walker. Assistance with PT. Subjective Subjective Date/Time Seen: 08/03/22 11:25 Post Op day: 6 Principal diagnosis: Left hip intertroch fracture Interval history: awake and alert. Pain left hip improving. Still with weakness of the left lower extremity. Exam Const: General: comfortable and no acute distress Orientation/consciousness: patient oriented x3 Resp: Effort & Inspection: normal respiratory effort Skin: General skin exam: normal color and wounds noted (incision left hip C/D/I ) Wounds: wounds noted (incision left hip C/D/I ) Neuro: General: patient oriented x3 Extrem: Left lower extremity: hip/thigh Details: tenderness Location: of the hip Location: laterally and anteriorly, swelling (thigh soft ) Location: of the hip (lateral. ), abnormal ROM (limitations with internal/external rotation and flexion/extension due to recent surgical intervention ) and other (incision lateral hip c/d/i. ), knee Details: normal to inspection and normal ROM; no tenderness and no swelling, lower leg (Negative Karla's Sign ) Details: no edema, ankle (foot drop brace in place. Patient has foot drop bilaterally as baseline. ) Details: normal to inspection, no edema and normal ROM; no tenderness, no swelling and no warmth and foot Details: normal capillary refill, toes with normal ROM, vascular exam Details: dorsalis pedis pulse present and motor-sensory exam light-touch normal in all toes; no tenderness, no ecchymosis and no crepitus Other: Left hip dressings clean and dry. No active drainage. No erythema. Minimal swelling. Muscles soft. Objective Data Vital Signs Vital Signs: Vital Signs - 24 hr 08/02/22 13:57 08/02/22 20:30 08/03/22 05:21 Temperature 98.3 F 97.8 F 97.8 F Pulse Rate 67 69 64 Respiratory Rate 16 18 18 Blood Pressure 138/62 98/40 L 99/37 L Pulse Oximetry 99 97 96 Oxygen Delivery 08/03/22 08:32 08/03/22 08:35 08/03/22 08:30 Temperature Pulse Rate 68 68 Respiratory Rate Blood Pressure 107/58 L Pulse Oximetry 99 Oxygen Delivery Room Air Intake/Output Intake/Output: Intake & Output 07/31/22 08/01/22 08/02/22 08/03/22 23:59 23:59 23:59 23:59 Intake Total 3190 1690 2080 240 Output Total 3525 1472 3700 200 Balance -335 218 -1620 40 Meds/Results Medications: Active Medications Generic Name Dose Route Start Last Admin Trade Name Freq PRN Reason Stop Dose Admin Hydrocodone Bitart/Acetaminophen 1 tab 07/28/22 15:54 08/03/22 05:36 Hydrocodone/Acetaminophen (*Crx) 7.5-325 Mg Tablet PO 1 tab Q3H PRN Administration Pain Rated 4-6 Apixaban 5 mg 07/28/22 21:00 08/03/22 08:35 Apixaban 5 Mg Tablet PO 5 mg Q12HR HARISH Administration Atenolol 25 mg 07/27/22 09:00 08/03/22 08:35 Atenolol 25 Mg Tablet PO 25 mg DAILY HARISH Administration Atorvastatin Calcium 10 mg 07/27/22 09:00 08/03/22 08:35 Atorvastatin 10 Mg Tablet PO 10 mg DAILY HARISH Administration Bisacodyl 10 mg 07/31/22 14:06 08/01/22 08:43 Bisacodyl 10 Mg Supposito
--- NOTE | 2022-08-03 11:35 | PCNWS ---
Weekly nutritional screen. Patient is tolerating current Regular diet with adequate intake at 75-100% of meals. No weight loss reported. No nutritional needs at this time.
[2022-08-03 12:11] LABS: Glucose Point of Care 203 mg/dl (65-105)
[2022-08-03] MEDS: INSULIN ASPART (*BKC) 100 UNITS/ML SUB-Q (12:11)
[2022-08-03 14:00] VITALS: BP 97/55; PULSE 71; RESP 20; TEMP 36.7; O2SAT 96
--- NOTE | 2022-08-03 16:15 | PCPTNOTE ---
Pet Feeder from Dr. Suarez office call and stated pt is able to place as much weight that is needed to use walker (2 w/w). Pet Feeder stated not to place excessive weight through L UE.
[2022-08-03 17:14] LABS: Glucose Point of Care 152 mg/dl (65-105)
[2022-08-03 19:39] VITALS: BP 96/42; PULSE 83; RESP 18; TEMP 36.9; O2SAT 97
[2022-08-03 21:31] LABS: Glucose Point of Care 153 mg/dl (65-105)
[2022-08-04] MEDS: HYDROcodone/acetaminophen (*CRX) 7.5-325 MG TABLET 1 TAB PO ×2 (03:46→10:31)
[2022-08-04 06:00] VITALS: BP 108/36; PULSE 76; RESP 18; TEMP 36.4; O2SAT 98
[2022-08-04 08:33] LABS: Glucose Point of Care 137 mg/dl (65-105)
[2022-08-04] MEDS: APIXABAN 5 MG TABLET PO ×2 (08:47→21:55)
[2022-08-04 08:48] VITALS: PULSE 80
[2022-08-04] MEDS: ATORVASTATIN 10 MG TABLET PO (08:48)
[2022-08-04] MEDS: atenoloL 25 MG TABLET PO (08:48)
[2022-08-04] MEDS: EMPAGLIFLOZIN 25 MG TABLET PO (08:49)
[2022-08-04] MEDS: hydroCHLOROthiazide 12.5 MG CAPSULE PO (08:49)
[2022-08-04] MEDS: lisinopriL 10 MG TABLET PO (08:50)
[2022-08-04] MEDS: metFORMIN HCL XR 500 MG TAB.SR.24H PO ×2 (08:50→17:03)
[2022-08-04] MEDS: CYANOCOBALAMIN INJ 1,000 MCG/ML VIAL 1000 MCG IM (08:51)
[2022-08-04 11:57] LABS: Glucose Point of Care 167 mg/dl (65-105)
--- NOTE | 2022-08-04 13:57 | PM.IMPN ---
Progress Note: A&P Assessment and Plan (1) Closed intertrochanteric fracture: Qualifiers: Encounter type: initial encounter Fracture alignment: displaced Laterality: left Qualified Code(s): S72.142A - Displaced intertrochanteric fracture of left femur, initial encounter for closed fracture Code(s): S72.143A - Displaced intertrochanteric fracture of unspecified femur, initial encounter for closed fracture Status: Acute Assessment and Plan: Patient has a history of idiopathic peripheral neuropathy and he wears leg braces to aid in balance. Patient does not exactly remember why he had fallen. He was not sure if he had tripped due to the lack of feeling below the knee.Patient does have significant left hip pain. X-ray revealed intertrochanteric left proximal femur fracture Ortho has been consulted Continue with analgesic POD3 Intramedullary nailing left hip (done 07/28/22). Postop care per Ortho Add kpad and trial muscle relaxer for thigh pain. bisacodyl suppository PRN. He is on miralax PO daily and senna plus 2 tabs BID scheduled. Awaiting rehab placement (2) Type 2 diabetes mellitus: Qualifiers: Diabetes mellitus complication status: without complication Diabetes mellitus intermodal truck driver insulin use: without intermodal truck driver use Qualified Code(s): E11.9 - Type 2 diabetes mellitus without complications Code(s): E11.9 - Type 2 diabetes mellitus without complications Status: Chronic Assessment and Plan: Non-insulin dependent diabetes, Accu-Cheks every 6 hours with sliding scale insulin and hypoglycemic protocol A1c 7.4% Glucose stable. Continue Jardiance and aspart sliding scale insulin Q6 hours. [facility] is non formulary and administer home medication, dose given 07/30; He usually takes this on Wednesdays. Resumed metformin XR 500 mg BID 72 hours after fluoroscopy on 08/01/22 Stable (3) Idiopathic neuropathy: Code(s): G60.9 - Hereditary and idiopathic neuropathy, unspecified Status: Chronic Assessment and Plan: chronic, the patient wears braces. (4) HTN (hypertension): Code(s): I10 - Essential (primary) hypertension Status: Chronic Assessment and Plan: Continue with lisinopril and atenolol BP soft, holding hydrochlorothiazide for now. Resume prior to discharge if BP>130/80 (5) Pulmonary embolism on long-term anticoagulation therapy: Code(s): I26.99 - Other pulmonary embolism without acute cor pulmonale; Z79.01 - salvage determiner (current) use of anticoagulants Status: Chronic Assessment and Plan: Patient has IVC filter Continued Eliquis 5 mg BID postop Plan CODE STATUS: FULL CODE Disposition: from home. Pending rehab placement. Time Spent With Patient Time with patient: Greater than 35 minutes Subjective Date/time seen: 08/04/22 13:57 Interval history: Patient was noted complaints. Patient working better with therapy now he is able to put weight on his left shoulder/arm. Awaiting insurance authorization for rehab. I did a peer to peer with patient's insurance company regarding his rehab acceptance. Had 30 minute conversation with insurance company and it was decided the patient's case will be sent for an appeal. Review of Systems Review of Systems: All systems reviewed & are unremarkable except as noted in HPI and below Exam Narrative: GENERAL: Comfortable, no acute distress HENMT: moist mucous membranes EYES: EOM intact b/l NECK: no lymphadenopathy RESPIRATORY: clear to auscultation CARDIO: RRR GI: soft, nontender, bowel sounds present SKIN: no rashes EXTREMITIES:Limited movement and left hip, dressing clean dry and intact. No bruising and minimal swelling present over left hip. Objective Data Vital Signs Vital Signs: Vital Signs - 24 hr 08/03/22 14:00 08/03/22 19:39 08/04/22 06:00 Temperature 98.1 F 98.4 F
[2022-08-04 14:08] VITALS: BP 99/56; PULSE 85; RESP 18; TEMP 36.5; O2SAT 100
[2022-08-04 16:49] LABS: Glucose Point of Care 144 mg/dl (65-105)
--- NOTE | 2022-08-04 17:34 | PHAR ---
TRULICITY 1.5 MG/0.5 ML SINGLE DOSE PEN INJ VERIFIED BY PHARMACY
[2022-08-04 19:00] VITALS: BP 120/55; PULSE 79; RESP 18; TEMP 36.8; O2SAT 99
[2022-08-04 22:00] VITALS: BP 102/50; PULSE 77; RESP 18; TEMP 37.1; O2SAT 97
[2022-08-04 22:52] LABS: Glucose Point of Care 142 mg/dl (65-105)
[2022-08-05 06:00] VITALS: BP 97/48; PULSE 77; RESP 18; TEMP 36.7; O2SAT 99
[2022-08-05] MEDS: HYDROcodone/acetaminophen (*CRX) 7.5-325 MG TABLET 1 TAB PO ×2 (06:49→11:58)
[2022-08-05 08:10] VITALS: PULSE 68
[2022-08-05] MEDS: hydroCHLOROthiazide 12.5 MG CAPSULE PO (08:10)
[2022-08-05] MEDS: metFORMIN HCL XR 500 MG TAB.SR.24H PO ×2 (08:10→16:38)
[2022-08-05] MEDS: APIXABAN 5 MG TABLET PO ×2 (08:10→20:45)
[2022-08-05] MEDS: EMPAGLIFLOZIN 25 MG TABLET PO (08:10)
[2022-08-05] MEDS: atenoloL 25 MG TABLET PO (08:10)
[2022-08-05] MEDS: ATORVASTATIN 10 MG TABLET PO (08:10)
[2022-08-05 08:11] VITALS: RESP 18; O2SAT 99
[2022-08-05] MEDS: lisinopriL 10 MG TABLET PO (08:11)
[2022-08-05 08:48] LABS: Glucose Point of Care 137 mg/dl (65-105)
[2022-08-05 12:00] LABS: Glucose Point of Care 170 mg/dl (65-105)
--- NOTE | 2022-08-05 13:18 | PM.IMPN ---
Progress Note: A&P Assessment and Plan (1) Closed intertrochanteric fracture: Qualifiers: Encounter type: initial encounter Fracture alignment: displaced Laterality: left Qualified Code(s): S72.142A - Displaced intertrochanteric fracture of left femur, initial encounter for closed fracture Code(s): S72.143A - Displaced intertrochanteric fracture of unspecified femur, initial encounter for closed fracture Status: Acute Assessment and Plan: Patient has a history of idiopathic peripheral neuropathy and he wears leg braces to aid in balance. Patient does not exactly remember why he had fallen. He was not sure if he had tripped due to the lack of feeling below the knee.Patient does have significant left hip pain. X-ray revealed intertrochanteric left proximal femur fracture Ortho has been consulted Continue with analgesic POD3 Intramedullary nailing left hip (done 07/28/22). Postop care per Ortho Add kpad and trial muscle relaxer for thigh pain. bisacodyl suppository PRN. He is on miralax PO daily and senna plus 2 tabs BID scheduled. Awaiting rehab placement (2) Type 2 diabetes mellitus: Qualifiers: Diabetes mellitus complication status: without complication Diabetes mellitus terminal makeup operator insulin use: without terminal makeup operator use Qualified Code(s): E11.9 - Type 2 diabetes mellitus without complications Code(s): E11.9 - Type 2 diabetes mellitus without complications Status: Chronic Assessment and Plan: Non-insulin dependent diabetes, Accu-Cheks every 6 hours with sliding scale insulin and hypoglycemic protocol A1c 7.4% Glucose stable. Continue Jardiance and aspart sliding scale insulin Q6 hours. [facility] is non formulary and administer home medication, dose given 07/30; He usually takes this on Wednesdays. Resumed metformin XR 500 mg BID 72 hours after fluoroscopy on 08/01/22 Stable (3) Idiopathic neuropathy: Code(s): G60.9 - Hereditary and idiopathic neuropathy, unspecified Status: Chronic Assessment and Plan: chronic, the patient wears braces. (4) HTN (hypertension): Code(s): I10 - Essential (primary) hypertension Status: Chronic Assessment and Plan: Continue with lisinopril and atenolol BP soft, holding hydrochlorothiazide for now. Resume prior to discharge if BP>130/80 (5) Pulmonary embolism on long-term anticoagulation therapy: Code(s): I26.99 - Other pulmonary embolism without acute cor pulmonale; Z79.01 - watermelon inspector (current) use of anticoagulants Status: Chronic Assessment and Plan: Patient has IVC filter Continued Eliquis 5 mg BID postop Plan CODE STATUS: FULL CODE Disposition: from home. Pending rehab placement. Subjective Date/time seen: 08/05/22 13:18 Interval history: patient doing well today and very frustrated with insurance company. Patient is making progress with Physical therapy and has been able to take several steps. Review of Systems Review of Systems: All systems reviewed & are unremarkable except as noted in HPI and below Exam Narrative: GENERAL: Comfortable, no acute distress HENMT: moist mucous membranes EYES: EOM intact b/l NECK: no lymphadenopathy RESPIRATORY: clear to auscultation CARDIO: RRR GI: soft, nontender, bowel sounds present SKIN: no rashes EXTREMITIES:Limited movement and left hip, dressing clean dry and intact. No bruising and minimal swelling present over left hip. Objective Data Vital Signs Vital Signs: Vital Signs - 24 hr 08/04/22 14:08 08/04/22 19:00 08/04/22 22:00 Temperature 97.7 F 98.2 F 98.8 F Pulse Rate 85 79 77 Respiratory Rate 18 18 18 Blood Pressure 99/56 L 120/55 L 102/50 L Pulse Oximetry 100 99 97 Oxygen Delivery 08/05/22 06:00 08/05/22 08:10 08/05/22 08:11 Temperature 98.1 F Pulse Rate 77 68 Respiratory Rate 18 18 Blood Pressure 97/48 L
--- NOTE | 2022-08-05 13:36 | PC.NURSE ---
On 08/05/22, the student, [Feliz Rivera], provided care and completed [facility] documentation on this patient. I have reviewed the student's documentation and agree with the findings.
[2022-08-05 14:00] VITALS: BP 108/52; PULSE 88; RESP 18; TEMP 36.7; O2SAT 99
[2022-08-05 17:01] LABS: Glucose Point of Care 130 mg/dl (65-105)
[2022-08-05 20:20] VITALS: BP 102/51; PULSE 96; RESP 16; TEMP 36.4; O2SAT 99
[2022-08-05 21:08] LABS: Glucose Point of Care 147 mg/dl (65-105)
[2022-08-05] MEDS: hydrOXYzine pamoate 25 MG CAPSULE 50 MG PO (23:07)
[2022-08-06 05:41] LABS: Basophils Percent Auto 0.4 % (0.2-1.2); Eosinophils Absolute Auto 0.1 K/mm3 (0-0.3); Eosinophils Percent Auto 1.8 % (0-4.4); Hemoglobin 10.7 g/dL (14.0-18.0); Immature Granulocyte Absolute 0.02 K/mm3 (0.00-0.031); Immature Granulocyte Percent A 0.4 % (0-0.5); Lymphocytes Absolute Auto 1.22 K/mm3 (0.9-3.2); Lymphocytes Percent Auto 24.2 % (18.3-44.2); Mean Corpuscular HGB Conc 31.5 g/dl (32-36); Mean Corpuscular Hemoglobin 32.7 pg (26-34); Mean Platelet Volume 8.5 fl (7.4-10.4); Monocytes Absolute Auto 0.6 K/mm3 (0.1-0.6); Monocytes Percent Auto 12.5 % (2.6-8.5); Neutrophils Absolute Auto 3.1 K/mm3 (1.3-6.7); Neutrophils Percent Auto 60.7 % (45.5-73.1); Platelet Count Result 259 k/mm3 (150-375); Red Blood Count 3.27 M/mm3 (4.6-6.20); White Blood Count 5.1 K/mm3 (4.5-10.0)
[2022-08-06 05:54] LABS: Alanine Aminotransferase 53 U/L (6-50); Albumin Level 3.3 g/dL (3.5-5.1); Alkaline Phosphatase 70 U/L (38-126); Anion Gap 7 mmol/L (8-16); Aspartate Amino Transferase 34 U/L (17-59); Bilirubin,Total 0.9 mg/dL (0.2-1.3); Blood Urea Nitrogen 15 mg/dL (9-20); Calcium 8.3 mg/dL (8.4-10.2); Carbon Dioxide 25 mmol/L (22-30); Chloride 103 mmol/L (98-107); Estimated CRCL calculation 102 ml/min; Estimated Glomerular Filt Rate > 60; Glucose 145 mg/dL (65-110); Potassium 3.8 mmol/L (3.4-5.0); Sodium 135 mmol/L (137-145)
[2022-08-06 06:50] VITALS: BP 101/56; PULSE 60; RESP 16; TEMP 36.5; O2SAT 99
[2022-08-06] MEDS: polyethylene glycoL 3350 17 GM POWD.PACK PO (08:17)
[2022-08-06] MEDS: SENNA/DOCUSATE SODIUM TABLET 2 TAB PO ×2 (08:17→16:44)
[2022-08-06] MEDS: lisinopriL 10 MG TABLET PO (08:17)
[2022-08-06 08:18] VITALS: PULSE 74
[2022-08-06] MEDS: ATORVASTATIN 10 MG TABLET PO (08:18)
[2022-08-06] MEDS: APIXABAN 5 MG TABLET PO ×2 (08:18→20:52)
[2022-08-06] MEDS: hydroCHLOROthiazide 12.5 MG CAPSULE PO (08:18)
[2022-08-06] MEDS: atenoloL 25 MG TABLET PO (08:18)
[2022-08-06] MEDS: EMPAGLIFLOZIN 25 MG TABLET PO (08:19)
[2022-08-06] MEDS: metFORMIN HCL XR 500 MG TAB.SR.24H PO ×2 (08:19→16:44)
[2022-08-06 08:33] LABS: Glucose Point of Care 137 mg/dl (65-105)
[2022-08-06] MEDS: HYDROcodone/acetaminophen (*CRX) 7.5-325 MG TABLET 1 TAB PO ×2 (09:17→14:12)
--- NOTE | 2022-08-06 10:25 | PC.NURSE ---
On 08/06/22, the student, [Debra Sual], provided care and completed [facility] documentation on this patient. I have reviewed the student's documentation and agree with the findings.
[2022-08-06 11:50] LABS: Glucose Point of Care 174 mg/dl (65-105)
--- NOTE | 2022-08-06 13:07 | PM.IMPN ---
Progress Note: A&P Assessment and Plan (1) Closed intertrochanteric fracture: Qualifiers: Encounter type: initial encounter Fracture alignment: displaced Laterality: left Qualified Code(s): S72.142A - Displaced intertrochanteric fracture of left femur, initial encounter for closed fracture Code(s): S72.143A - Displaced intertrochanteric fracture of unspecified femur, initial encounter for closed fracture Status: Acute Assessment and Plan: Patient has a history of idiopathic peripheral neuropathy and he wears leg braces to aid in balance. Patient does not exactly remember why he had fallen. He was not sure if he had tripped due to the lack of feeling below the knee.Patient does have significant left hip pain. X-ray revealed intertrochanteric left proximal femur fracture Ortho has been consulted Continue with analgesic POD3 Intramedullary nailing left hip (done 07/28/22). Postop care per Ortho Add kpad and trial muscle relaxer for thigh pain. bisacodyl suppository PRN. He is on miralax PO daily and senna plus 2 tabs BID scheduled. Awaiting rehab placement (2) Type 2 diabetes mellitus: Qualifiers: Diabetes mellitus complication status: without complication Diabetes mellitus vermin exterminator insulin use: without vermin exterminator use Qualified Code(s): E11.9 - Type 2 diabetes mellitus without complications Code(s): E11.9 - Type 2 diabetes mellitus without complications Status: Chronic Assessment and Plan: Non-insulin dependent diabetes, Accu-Cheks every 6 hours with sliding scale insulin and hypoglycemic protocol A1c 7.4% Glucose stable. Continue Jardiance and aspart sliding scale insulin Q6 hours. [facility] is non formulary and administer home medication, dose given 07/30; He usually takes this on Wednesdays. Resumed metformin XR 500 mg BID 72 hours after fluoroscopy on 08/01/22 Stable (3) Idiopathic neuropathy: Code(s): G60.9 - Hereditary and idiopathic neuropathy, unspecified Status: Chronic Assessment and Plan: chronic, the patient wears braces. (4) HTN (hypertension): Code(s): I10 - Essential (primary) hypertension Status: Chronic Assessment and Plan: Continue with lisinopril and atenolol BP soft, holding hydrochlorothiazide for now. Resume prior to discharge if BP>130/80 (5) Pulmonary embolism on long-term anticoagulation therapy: Code(s): I26.99 - Other pulmonary embolism without acute cor pulmonale; Z79.01 - watermelon inspector (current) use of anticoagulants Status: Chronic Assessment and Plan: Patient has IVC filter Continued Eliquis 5 mg BID postop Plan CODE STATUS: FULL CODE Disposition: from home. Pending rehab placement. Subjective Date/time seen: 08/06/22 13:07 Interval history: No new complaints. Awaiting placement. Review of Systems Review of Systems: All systems reviewed & are unremarkable except as noted in HPI and below Exam Narrative: GENERAL: Comfortable, no acute distress HENMT: moist mucous membranes EYES: EOM intact b/l NECK: no lymphadenopathy RESPIRATORY: clear to auscultation CARDIO: RRR GI: soft, nontender, bowel sounds present SKIN: no rashes EXTREMITIES:Limited movement and left hip, dressing clean dry and intact. No bruising and minimal swelling present over left hip. Objective Data Vital Signs Vital Signs: Vital Signs - 24 hr 08/05/22 14:00 08/05/22 20:20 08/06/22 06:50 Temperature 98.1 F 97.6 F 97.7 F Pulse Rate 88 96 60 Respiratory Rate 18 16 16 Blood Pressure 108/52 L 102/51 L 101/56 L Pulse Oximetry 99 99 99 Oxygen Delivery 08/06/22 08:00 08/06/22 08:18 08/06/22 08:16 Temperature Pulse Rate 74 Respiratory Rate Blood Pressure Pulse Oximetry Oxygen Delivery Room Air Room Air Intake/Output Intake/Output: Intake & Output 08/03/22 08/04/22 08/05/22
--- NOTE | 2022-08-06 13:42 | PC.NURSE ---
On 08/06/22, the student, [Rishi Yuan], provided care and completed [facility] documentation on this patient. I have reviewed the student's documentation and agree with the findings.
[2022-08-06 13:57] VITALS: BP 90/50; PULSE 91; RESP 18; TEMP 36.6; O2SAT 98
[2022-08-06 14:05] VITALS: BP 100/58; PULSE 74; RESP 16; TEMP 36.4; O2SAT 97
[2022-08-06 16:49] LABS: Glucose Point of Care 149 mg/dl (65-105)
[2022-08-06 20:00] VITALS: PULSE 78; RESP 16; O2SAT 99
[2022-08-06] MEDS: diazePAM (*CRX) 5 MG TABLET PO (20:52)
[2022-08-06 22:00] VITALS: BP 91/50; PULSE 78; RESP 16; TEMP 36.5; O2SAT 99
[2022-08-06 22:08] LABS: Glucose Point of Care 158 mg/dl (65-105)
[2022-08-07] MEDS: HYDROcodone/acetaminophen (*CRX) 7.5-325 MG TABLET 1 TAB PO (03:40)
[2022-08-07 07:07] VITALS: BP 90/52; PULSE 60; RESP 16; TEMP 36.4; O2SAT 100
[2022-08-07 08:22] LABS: Glucose Point of Care 130 mg/dl (65-105)
[2022-08-07] MEDS: ATORVASTATIN 10 MG TABLET PO (09:45)
[2022-08-07] MEDS: APIXABAN 5 MG TABLET PO ×2 (09:45→20:46)
[2022-08-07] MEDS: metFORMIN HCL XR 500 MG TAB.SR.24H PO ×2 (09:46→17:26)
[2022-08-07] MEDS: EMPAGLIFLOZIN 25 MG TABLET PO (09:46)
[2022-08-07 09:50] VITALS: BP 100/45
--- NOTE | 2022-08-07 11:34 | PM.IMPN ---
Progress Note: A&P Assessment and Plan (1) Closed intertrochanteric fracture: Qualifiers: Encounter type: initial encounter Fracture alignment: displaced Laterality: left Qualified Code(s): S72.142A - Displaced intertrochanteric fracture of left femur, initial encounter for closed fracture Code(s): S72.143A - Displaced intertrochanteric fracture of unspecified femur, initial encounter for closed fracture Status: Acute Assessment and Plan: Patient has a history of idiopathic peripheral neuropathy and he wears leg braces to aid in balance. Patient does not exactly remember why he had fallen. He was not sure if he had tripped due to the lack of feeling below the knee.Patient does have significant left hip pain. X-ray revealed intertrochanteric left proximal femur fracture Ortho has been consulted Continue with analgesic POD3 Intramedullary nailing left hip (done 07/28/22). Postop care per Ortho Add kpad and trial muscle relaxer for thigh pain. bisacodyl suppository PRN. He is on miralax PO daily and senna plus 2 tabs BID scheduled. Awaiting rehab placement (2) Type 2 diabetes mellitus: Qualifiers: Diabetes mellitus complication status: without complication Diabetes mellitus terminal block assembler insulin use: without terminal block assembler use Qualified Code(s): E11.9 - Type 2 diabetes mellitus without complications Code(s): E11.9 - Type 2 diabetes mellitus without complications Status: Chronic Assessment and Plan: Non-insulin dependent diabetes, Accu-Cheks every 6 hours with sliding scale insulin and hypoglycemic protocol A1c 7.4% Glucose stable. Continue Jardiance and aspart sliding scale insulin Q6 hours. [facility] is non formulary and administer home medication, dose given 07/30; He usually takes this on Wednesdays. Resumed metformin XR 500 mg BID 72 hours after fluoroscopy on 08/01/22 Stable (3) Idiopathic neuropathy: Code(s): G60.9 - Hereditary and idiopathic neuropathy, unspecified Status: Chronic Assessment and Plan: chronic, the patient wears braces. (4) HTN (hypertension): Code(s): I10 - Essential (primary) hypertension Status: Chronic Assessment and Plan: Continue with lisinopril and atenolol BP soft, holding hydrochlorothiazide for now. Resume prior to discharge if BP>130/80 (5) Pulmonary embolism on long-term anticoagulation therapy: Code(s): I26.99 - Other pulmonary embolism without acute cor pulmonale; Z79.01 - exterminator (current) use of anticoagulants Status: Chronic Assessment and Plan: Patient has IVC filter Continued Eliquis 5 mg BID postop Plan CODE STATUS: FULL CODE Disposition: from home. Pending rehab placement. Subjective Date/time seen: 08/07/22 11:34 Interval history: No new complaints. Awaiting placement. Exam Narrative: GENERAL: Comfortable, no acute distress HENMT: moist mucous membranes EYES: EOM intact b/l NECK: no lymphadenopathy RESPIRATORY: clear to auscultation CARDIO: RRR GI: soft, nontender, bowel sounds present SKIN: no rashes EXTREMITIES:Limited movement and left hip, dressing clean dry and intact. No bruising and minimal swelling present over left hip. Objective Data Vital Signs Vital Signs: Vital Signs - 24 hr 08/06/22 13:57 08/06/22 14:05 08/06/22 22:00 Temperature 97.8 F 97.6 F 97.7 F Pulse Rate 91 74 78 Respiratory Rate 18 16 16 Blood Pressure 90/50 L 100/58 L 91/50 L Pulse Oximetry 98 97 99 Oxygen Delivery 08/06/22 20:00 08/07/22 07:07 08/07/22 09:50 Temperature 97.6 F Pulse Rate 78 60 Respiratory Rate 16 16 Blood Pressure 90/52 L 100/45 L Pulse Oximetry 99 100 Oxygen Delivery Room Air Intake/Output Intake/Output: Intake & Output 08/04/22 08/05/22 08/06/22 08/07/22 23:59 23:59 23:59 23:59 Intake Total 2120 1490 1590 710 Output Total 9868 6956 7005
[2022-08-07 12:13] LABS: Glucose Point of Care 164 mg/dl (65-105)
[2022-08-07 12:26] VITALS: BP 99/56
[2022-08-07] MEDS: ACETAMINOPHEN 500 MG TABLET 1000 MG PO (13:24)
[2022-08-07 14:23] VITALS: BP 111/53; PULSE 98; RESP 18; TEMP 36.4; O2SAT 100
[2022-08-07 17:13] LABS: Glucose Point of Care 152 mg/dl (65-105)
[2022-08-07 19:30] VITALS: BP 118/51; PULSE 86; RESP 16; TEMP 36.4; O2SAT 100
[2022-08-07 20:00] VITALS: PULSE 86; RESP 16; O2SAT 100
[2022-08-07] MEDS: hydrOXYzine pamoate 25 MG CAPSULE 50 MG PO (22:50)
[2022-08-08 05:48] LABS: Basophils Percent Auto 0.6 % (0.2-1.2); Eosinophils Absolute Auto 0.1 K/mm3 (0-0.3); Eosinophils Percent Auto 2.4 % (0-4.4); Hematocrit 34.1 % (42.0-52.0); Hemoglobin 10.8 g/dL (14.0-18.0); Immature Granulocyte Absolute 0.02 K/mm3 (0.00-0.031); Immature Granulocyte Percent A 0.4 % (0-0.5); Lymphocytes Absolute Auto 1.32 K/mm3 (0.9-3.2); Lymphocytes Percent Auto 24.4 % (18.3-44.2); Mean Corpuscular HGB Conc 31.7 g/dl (32-36); Mean Corpuscular Hemoglobin 32.4 pg (26-34); Mean Corpuscular Volume 102.4 fl (80-100); Mean Platelet Volume 8.5 fl (7.4-10.4); Monocytes Absolute Auto 0.6 K/mm3 (0.1-0.6); Monocytes Percent Auto 11.5 % (2.6-8.5); Neutrophils Absolute Auto 3.3 K/mm3 (1.3-6.7); Neutrophils Percent Auto 60.7 % (45.5-73.1); Platelet Count Result 262 k/mm3 (150-375); Red Blood Count 3.33 M/mm3 (4.6-6.20); Red Cell Distribution Width 13.9 % (11.5-14.5); White Blood Count 5.4 K/mm3 (4.5-10.0)
[2022-08-08] MEDS: ACETAMINOPHEN 500 MG TABLET 1000 MG PO ×2 (05:54→13:05)
[2022-08-08 06:01] LABS: Alanine Aminotransferase 48 U/L (6-50); Albumin Level 3.4 g/dL (3.5-5.1); Alkaline Phosphatase 124 U/L (38-126); Anion Gap 0 mmol/L (8-16); Aspartate Amino Transferase 33 U/L (17-59); Bilirubin,Total 0.8 mg/dL (0.2-1.3); Blood Urea Nitrogen 17 mg/dL (9-20); Calcium 8.3 mg/dL (8.4-10.2); Carbon Dioxide 31 mmol/L (22-30); Chloride 103 mmol/L (98-107); Estimated CRCL calculation 102 ml/min; Estimated Glomerular Filt Rate > 60; Glucose 138 mg/dL (65-110); Potassium 3.9 mmol/L (3.4-5.0); Sodium 134 mmol/L (137-145)
[2022-08-08 06:49] VITALS: BP 95/51; PULSE 77; RESP 16; TEMP 36.5; O2SAT 99
[2022-08-08 08:20] LABS: Glucose Point of Care 133 mg/dl (65-105)
[2022-08-08 08:31] VITALS: BP 101/57; PULSE 79
[2022-08-08] MEDS: APIXABAN 5 MG TABLET PO ×2 (08:33→20:27)
[2022-08-08] MEDS: ATORVASTATIN 10 MG TABLET PO (08:33)
[2022-08-08] MEDS: EMPAGLIFLOZIN 25 MG TABLET PO (08:34)
[2022-08-08] MEDS: metFORMIN HCL XR 500 MG TAB.SR.24H PO ×2 (08:34→17:14)
[2022-08-08 11:39] LABS: Glucose Point of Care 175 mg/dl (65-105)
[2022-08-08 14:09] VITALS: BP 114/76; PULSE 68; RESP 16; TEMP 36.3; O2SAT 97
--- NOTE | 2022-08-08 14:25 | PM.IMPN ---
Progress Note: A&P Assessment and Plan (1) Closed intertrochanteric fracture: Qualifiers: Encounter type: initial encounter Fracture alignment: displaced Laterality: left Qualified Code(s): S72.142A - Displaced intertrochanteric fracture of left femur, initial encounter for closed fracture Code(s): S72.143A - Displaced intertrochanteric fracture of unspecified femur, initial encounter for closed fracture Status: Acute Assessment and Plan: Patient has a history of idiopathic peripheral neuropathy and he wears leg braces to aid in balance. Patient does not exactly remember why he had fallen. He was not sure if he had tripped due to the lack of feeling below the knee.Patient does have significant left hip pain. X-ray revealed intertrochanteric left proximal femur fracture Ortho has been consulted Continue with analgesic POD3 Intramedullary nailing left hip (done 07/28/22). Postop care per Ortho Add kpad and trial muscle relaxer for thigh pain. bisacodyl suppository PRN. He is on miralax PO daily and senna plus 2 tabs BID scheduled. Awaiting rehab placement (2) Type 2 diabetes mellitus: Qualifiers: Diabetes mellitus complication status: without complication Diabetes mellitus watermaster insulin use: without watermaster use Qualified Code(s): E11.9 - Type 2 diabetes mellitus without complications Code(s): E11.9 - Type 2 diabetes mellitus without complications Status: Chronic Assessment and Plan: Non-insulin dependent diabetes, Accu-Cheks every 6 hours with sliding scale insulin and hypoglycemic protocol A1c 7.4% Glucose stable. Continue Jardiance and aspart sliding scale insulin Q6 hours. [facility] and administer home medication, dose given 07/30; He usually takes this on Wednesdays. Resumed metformin XR 500 mg BID 72 hours after fluoroscopy on 08/01/22 Stable (3) Idiopathic neuropathy: Code(s): G60.9 - Hereditary and idiopathic neuropathy, unspecified Status: Chronic Assessment and Plan: chronic, the patient wears braces. (4) HTN (hypertension): Code(s): I10 - Essential (primary) hypertension Status: Chronic Assessment and Plan: Holding hydrochlorothiazide. Resume prior to discharge if BP>130/80 4/2 Hold lisinopril and atenolol due to low bp. (5) Pulmonary embolism on long-term anticoagulation therapy: Code(s): I26.99 - Other pulmonary embolism without acute cor pulmonale; Z79.01 - long-term (current) use of anticoagulants Status: Chronic Assessment and Plan: Patient has IVC filter Continued Eliquis 5 mg BID postop Plan CODE STATUS: FULL CODE Disposition: from home. Pending rehab placement. Subjective Date/time seen: 08/08/22 14:25 Interval history: No new complaints. Awaiting placement. Review of Systems Review of Systems: All systems reviewed & are unremarkable except as noted in HPI and below Exam Narrative: GENERAL: Comfortable, no acute distress HENMT: moist mucous membranes EYES: EOM intact b/l NECK: no lymphadenopathy RESPIRATORY: clear to auscultation CARDIO: RRR GI: soft, nontender, bowel sounds present SKIN: no rashes EXTREMITIES:Limited movement and left hip, dressing clean dry and intact. No bruising and minimal swelling present over left hip. Objective Data Vital Signs Vital Signs: Vital Signs - 24 hr 08/07/22 19:30 08/07/22 20:00 08/08/22 06:49 Temperature 97.6 F 97.7 F Pulse Rate 86 86 77 Respiratory Rate 16 16 16 Blood Pressure 118/51 L 95/51 L Pulse Oximetry 100 100 99 Oxygen Delivery Room Air 08/08/22 08:31 08/08/22 08:30 08/08/22 14:09 Temperature 97.4 F L Pulse Rate 79 68 Respiratory Rate 16 Blood Pressure 101/57 L 114/76 Pulse Oximetry 97 Oxygen Delivery Room Air Intake/Output Intake/Output: Intake & Output 08/05/22 08/06/22
[2022-08-08 17:12] LABS: Glucose Point of Care 136 mg/dl (65-105)
[2022-08-08 20:00] VITALS: PULSE 68; RESP 16; O2SAT 97
[2022-08-08 22:05] VITALS: BP 135/40; PULSE 47; RESP 21; TEMP 36.4; O2SAT 100
[2022-08-09] MEDS: hydrOXYzine pamoate 25 MG CAPSULE 50 MG PO ×2 (01:08→22:10)
[2022-08-09 06:00] VITALS: BP 110/54; PULSE 82; RESP 21; TEMP 36.4; O2SAT 100
[2022-08-09 06:05] LABS: Hematocrit 35.9 % (42.0-52.0); Hemoglobin 11.3 g/dL (14.0-18.0); Mean Corpuscular HGB Conc 31.5 g/dl (32-36); Mean Corpuscular Hemoglobin 32.6 pg (26-34); Mean Corpuscular Volume 103.5 fl (80-100); Mean Platelet Volume 8.7 fl (7.4-10.4); Platelet Count Result 280 k/mm3 (150-375); Red Blood Count 3.47 M/mm3 (4.6-6.20); White Blood Count 5.1 K/mm3 (4.5-10.0)
[2022-08-09 06:16] LABS: Anion Gap 4 mmol/L (8-16); Blood Urea Nitrogen 16 mg/dL (9-20); Calcium 8.2 mg/dL (8.4-10.2); Carbon Dioxide 26 mmol/L (22-30); Chloride 105 mmol/L (98-107); Estimated CRCL calculation 102 ml/min; Estimated Glomerular Filt Rate > 60; Glucose 126 mg/dL (65-110); Potassium 3.8 mmol/L (3.4-5.0); Sodium 135 mmol/L (137-145)
[2022-08-09 08:18] LABS: Glucose Point of Care 125 mg/dl (65-105)
[2022-08-09] MEDS: ATORVASTATIN 10 MG TABLET PO (08:38)
[2022-08-09] MEDS: APIXABAN 5 MG TABLET PO ×2 (08:38→22:26)
[2022-08-09] MEDS: polyethylene glycoL 3350 17 GM POWD.PACK PO (08:38)
[2022-08-09] MEDS: EMPAGLIFLOZIN 25 MG TABLET PO (08:38)
[2022-08-09] MEDS: SENNA/DOCUSATE SODIUM TABLET 2 TAB PO (08:38)
[2022-08-09] MEDS: metFORMIN HCL XR 500 MG TAB.SR.24H PO ×2 (08:38→17:08)
[2022-08-09] MEDS: ACETAMINOPHEN 500 MG TABLET 1000 MG PO ×2 (11:06→22:10)
[2022-08-09 11:54] LABS: Glucose Point of Care 170 mg/dl (65-105)
--- NOTE | 2022-08-09 12:49 | PM.IMPN ---
Progress Note: A&P Assessment and Plan (1) Closed intertrochanteric fracture: Qualifiers: Encounter type: initial encounter Fracture alignment: displaced Laterality: left Qualified Code(s): S72.142A - Displaced intertrochanteric fracture of left femur, initial encounter for closed fracture Code(s): S72.143A - Displaced intertrochanteric fracture of unspecified femur, initial encounter for closed fracture Status: Acute Assessment and Plan: Patient has a history of idiopathic peripheral neuropathy and he wears leg braces to aid in balance. Patient does not exactly remember why he had fallen. He was not sure if he had tripped due to the lack of feeling below the knee.Patient does have significant left hip pain. X-ray revealed intertrochanteric left proximal femur fracture Ortho has been consulted Continue with analgesic POD3 Intramedullary nailing left hip (done 07/28/22). Postop care per Ortho Add kpad and trial muscle relaxer for thigh pain. bisacodyl suppository PRN. He is on miralax PO daily and senna plus 2 tabs BID scheduled. Awaiting rehab placement (2) Type 2 diabetes mellitus: Qualifiers: Diabetes mellitus complication status: without complication Diabetes mellitus terminal carman insulin use: without terminal carman use Qualified Code(s): E11.9 - Type 2 diabetes mellitus without complications Code(s): E11.9 - Type 2 diabetes mellitus without complications Status: Chronic Assessment and Plan: Non-insulin dependent diabetes, Accu-Cheks every 6 hours with sliding scale insulin and hypoglycemic protocol A1c 7.4% Glucose stable. Continue Jardiance and aspart sliding scale insulin Q6 hours. [facility] and administer home medication, dose given 07/30; He usually takes this on Wednesdays. Resumed metformin XR 500 mg BID 72 hours after fluoroscopy on 08/01/22 Stable (3) Idiopathic neuropathy: Code(s): G60.9 - Hereditary and idiopathic neuropathy, unspecified Status: Chronic Assessment and Plan: chronic, the patient wears braces. (4) HTN (hypertension): Code(s): I10 - Essential (primary) hypertension Status: Chronic Assessment and Plan: Holding hydrochlorothiazide. Resume prior to discharge if BP>130/80 4/2 Hold lisinopril and atenolol due to low bp. (5) Pulmonary embolism on long-term anticoagulation therapy: Code(s): I26.99 - Other pulmonary embolism without acute cor pulmonale; Z79.01 - correction (current) use of anticoagulants Status: Chronic Assessment and Plan: Patient has IVC filter Continued Eliquis 5 mg BID postop Plan CODE STATUS: FULL CODE Disposition: from home. Pending rehab placement. Subjective Date/time seen: 08/09/22 12:49 Interval history: Awaiting placement. Patient concerned about not being able to lift his leg and states that his thigh muscles are not working. Patient has full feeling on the top of his leg and his muscle do flex on command. Patient and his are requesting that ortho sees him again. I have talked to Brooke BOURNE with ortho and she is going to re order x rays and see patient in the AM. Exam Narrative: GENERAL: Comfortable, no acute distress HENMT: moist mucous membranes EYES: EOM intact b/l NECK: no lymphadenopathy RESPIRATORY: clear to auscultation CARDIO: RRR GI: soft, nontender, bowel sounds present SKIN: no rashes EXTREMITIES:Limited movement and left hip, dressing clean dry and intact. No bruising and minimal swelling present over left hip. Objective Data Vital Signs Vital Signs: Vital Signs - 24 hr 08/08/22 14:09 08/08/22 20:00 08/08/22 22:05 Temperature 97.4 F L 97.6 F Pulse Rate 68 68 47 L Respiratory Rate 16 16 21 H Blood Pressure 114/76 135/40 L Pulse Oximetry 97 97 100 Oxygen Delivery Room Air 08/09/22 06:00 Temperature 97.6 F Pulse Ra
[2022-08-09 14:14] VITALS: BP 108/55; PULSE 86; RESP 16; TEMP 36.3; O2SAT 98
[2022-08-09 17:20] LABS: Glucose Point of Care 145 mg/dl (65-105)
[2022-08-09 20:08] LABS: Glucose Point of Care 210 mg/dl (65-105)
[2022-08-09 21:02] VITALS: BP 134/66; PULSE 52; RESP 17; TEMP 36.6; O2SAT 100
[2022-08-10 05:33] VITALS: BP 115/55; PULSE 74; RESP 17; TEMP 36.7; O2SAT 100
[2022-08-10] MEDS: EMPAGLIFLOZIN 25 MG TABLET PO (08:19)
[2022-08-10] MEDS: APIXABAN 5 MG TABLET PO ×2 (08:19→22:01)
[2022-08-10] MEDS: ATORVASTATIN 10 MG TABLET PO (08:19)
[2022-08-10] MEDS: metFORMIN HCL XR 500 MG TAB.SR.24H PO ×2 (08:20→16:51)
[2022-08-10 08:41] LABS: Glucose Point of Care 133 mg/dl (65-105)
--- NOTE | 2022-08-10 09:40 | PM.PNORT ---
Progress Note: A&P Assessment and Plan (1) Closed intertrochanteric fracture: Qualifiers: Encounter type: initial encounter Fracture alignment: displaced Laterality: left Qualified Code(s): S72.142A - Displaced intertrochanteric fracture of left femur, initial encounter for closed fracture Code(s): S72.143A - Displaced intertrochanteric fracture of unspecified femur, initial encounter for closed fracture Status: Acute Assessment and Plan: POD #13: Left hip intramedullary hip screw Patient with concerns about thigh pain. Concerned he has a missed femur fracture. Discussed postoperative expectations s/p hip fracture and referred pain expectations due to thigh weakness. Patient is able to flex then hip when leg is in extension. Difficulty from a seated position. Walking well with PT/OT. Pain is at 4/10 with ambulation but improves at rest. Requiring Tylenol only. Will obtain new AP Pelvis XR and Left Femur XR for further evaluation of patient concerns. In the interim, Continue PT/OT. WBAT. Walker. HIGH FALL RISK. Continue pain control. Ice hip/thigh. Protect skin. DVT prophylaxis with resumed Eliquis. SCDs. Incentive Spirometry Use reviewed. Monitor Dressing. Okay to remove etienne tomorrow on POD #14. Apply steri strips if needed. Dispo: Patient with concerns about inability to self care while at home. Does not feel his will be able to care for him to the extent in which he needs including getting out of bed. [facility] denied. Awaiting SNF approval at this time. (2) History of repair of left rotator cuff: Code(s): Z98.890 - Other specified postprocedural states Status: Acute Assessment and Plan: Standing walker. Assistance with PT. Patient is several weeks out from a left RTC repair. Will need PT/OT orders from shoulder surgeon at SNF so rehabilitation can begin. Subjective Subjective Date/Time Seen: 08/10/22 09:40 Post Op day: 13 Principal diagnosis: Left hip intertroch fracture Interval history: POD #13 Patient awake, sitting at bedside working with OT at time of exam. Concerned about discharge planning. Does not feel his will be able to assist him. Complains of 4/10 pain with ambulation. No pain at rest. Feels pain is well controlled with current pain medication regimen. Concerned about thigh pain/weakness. Review of Systems Review of Systems: All systems reviewed & are unremarkable except as noted in HPI and below Exam Const: General: comfortable and no acute distress Orientation/consciousness: patient oriented x3 Resp: Effort & Inspection: normal respiratory effort Skin: General skin exam: normal color and wounds noted (incision left hip C/D/I ) Wounds: wounds noted (incision left hip C/D/I ) Neuro: General: patient oriented x3 Extrem: Left lower extremity: hip/thigh Details: tenderness Location: of the hip Location: laterally and anteriorly, swelling (thigh soft ) Location: of the hip (lateral. ), abnormal ROM (limitations with internal/external rotation and flexion/extension due to recent surgical intervention ) and other (incision lateral hip c/d/i. ), knee Details: normal to inspection and normal ROM; no tenderness and no swelling, lower leg (Negative Karla's Sign ) Details: no edema, ankle (foot drop brace in place. Patient has foot drop bilaterally as baseline. ) Details: normal to inspection, no edema and normal ROM; no tenderness, no swelling and no warmth and foot Details: normal capillary refill, toes with normal ROM, vascular exam Details: dorsalis pedis pulse present and motor-sensory exam light-touch normal in all toes; no tenderness, no ecchymosis and no crepitus Other: Left hip dressings clean and dry. No active drainage. No erythema. Minimal swelling. Muscles soft. Left thigh tenderness. Weakness with hip flexion from a seated position. Able to flex the knee/hip when leg is straight. Psych: Mental Status: mental status grossly normal Aff
--- NOTE | 2022-08-10 11:16 | PCNWS ---
Weekly nutritional screen. Patient is tolerating current diet with adequate intake. No weight loss reported. No nutritional needs at this time.
[2022-08-10] MEDS: ACETAMINOPHEN 500 MG TABLET 1000 MG PO ×2 (12:00→18:55)
[2022-08-10 12:07] LABS: Glucose Point of Care 150 mg/dl (65-105)
--- NOTE | 2022-08-10 12:10 | PM.IMPN ---
Progress Note: A&P Assessment and Plan (1) Closed intertrochanteric fracture: Qualifiers: Encounter type: initial encounter Fracture alignment: displaced Laterality: left Qualified Code(s): S72.142A - Displaced intertrochanteric fracture of left femur, initial encounter for closed fracture Code(s): S72.143A - Displaced intertrochanteric fracture of unspecified femur, initial encounter for closed fracture Status: Acute Assessment and Plan: Patient has a history of idiopathic peripheral neuropathy and he wears leg braces to aid in balance. Patient does not exactly remember why he had fallen. He was not sure if he had tripped due to the lack of feeling below the knee.Patient does have significant left hip pain. X-ray revealed intertrochanteric left proximal femur fracture Ortho has been consulted Continue with analgesic Intramedullary nailing left hip (done 07/28/22). Postop care per Ortho Add kpad and trial muscle relaxer for thigh pain. bisacodyl suppository PRN. He is on miralax PO daily and senna plus 2 tabs BID scheduled. Awaiting rehab placement (2) Type 2 diabetes mellitus: Qualifiers: Diabetes mellitus complication status: without complication Diabetes mellitus petroleum terminal plant operator insulin use: without half-way use Qualified Code(s): E11.9 - Type 2 diabetes mellitus without complications Code(s): E11.9 - Type 2 diabetes mellitus without complications Status: Chronic Assessment and Plan: Non-insulin dependent diabetes, Accu-Cheks every 6 hours with sliding scale insulin and hypoglycemic protocol A1c 7.4% Glucose stable. Continue Jardiance and aspart sliding scale insulin Q6 hours. [facility] and administer home medication, dose given 07/30; He usually takes this on Wednesdays. Resumed metformin XR 500 mg BID 72 hours after fluoroscopy on 08/01/22 Stable (3) Idiopathic neuropathy: Code(s): G60.9 - Hereditary and idiopathic neuropathy, unspecified Status: Chronic Assessment and Plan: chronic, the patient wears braces. (4) HTN (hypertension): Code(s): I10 - Essential (primary) hypertension Status: Chronic Assessment and Plan: Holding hydrochlorothiazide. Resume prior to discharge if BP>130/80 4/2 Hold lisinopril and atenolol due to low bp. (5) Pulmonary embolism on long-term anticoagulation therapy: Code(s): I26.99 - Other pulmonary embolism without acute cor pulmonale; Z79.01 - medical terminologist (current) use of anticoagulants Status: Chronic Assessment and Plan: Patient has IVC filter Continued Eliquis 5 mg BID postop Plan CODE STATUS: FULL CODE Disposition: from home. Pending rehab placement. Subjective Date/time seen: 08/10/22 12:10 Interval history: Awaiting SNF placement. No new complaints at this time. Review of Systems Review of Systems: All systems reviewed & are unremarkable except as noted in HPI and below Exam Narrative: GENERAL: Comfortable, no acute distress HENMT: moist mucous membranes EYES: EOM intact b/l NECK: no lymphadenopathy RESPIRATORY: clear to auscultation CARDIO: RRR GI: soft, nontender, bowel sounds present SKIN: no rashes EXTREMITIES:Limited movement and left hip, dressing clean dry and intact. No bruising and minimal swelling present over left hip. Objective Data Vital Signs Vital Signs: Vital Signs - 24 hr 08/09/22 14:14 08/09/22 21:02 08/10/22 05:33 Temperature 97.4 F L 97.9 F 98.0 F Pulse Rate 86 52 L 74 Respiratory Rate 16 17 17 Blood Pressure 108/55 L 134/66 115/55 L Pulse Oximetry 98 100 100 Intake/Output Intake/Output: Intake & Output 08/07/22 08/08/22 08/09/22 08/10/22 23:59 23:59 23:59 23:59 Intake Total 1700 1980 1660 490 Output Total 1375 1200 1650 1300 Balance 325 780 10 -810 Meds/Results Medications: Active Medications Generic
[2022-08-10 14:40] VITALS: BP 129/52; PULSE 90; RESP 18; TEMP 36.5; O2SAT 99
[2022-08-10 17:28] LABS: Glucose Point of Care 156 mg/dl (65-105)
[2022-08-10] MEDS: hydrOXYzine pamoate 25 MG CAPSULE 50 MG PO (22:02)
[2022-08-10 22:05] LABS: Glucose Point of Care 163 mg/dl (65-105)
[2022-08-10 22:46] VITALS: BP 108/47; PULSE 70; RESP 20; TEMP 36.3; O2SAT 99
[2022-08-11 06:00] VITALS: BP 116/60; PULSE 71; RESP 20; TEMP 36.4; O2SAT 99
[2022-08-11 08:25] LABS: Glucose Point of Care 156 mg/dl (65-105)
[2022-08-11] MEDS: CYANOCOBALAMIN INJ 1,000 MCG/ML VIAL 1000 MCG IM (08:37)
[2022-08-11] MEDS: ATORVASTATIN 10 MG TABLET PO (08:37)
[2022-08-11] MEDS: APIXABAN 5 MG TABLET PO (08:38)
[2022-08-11] MEDS: EMPAGLIFLOZIN 25 MG TABLET PO (08:38)
[2022-08-11] MEDS: metFORMIN HCL XR 500 MG TAB.SR.24H PO ×2 (08:38→17:03)
[2022-08-11] MEDS: ACETAMINOPHEN 500 MG TABLET 1000 MG PO (10:59)
[2022-08-11 12:05] LABS: Glucose Point of Care 234 mg/dl (65-105)
[2022-08-11] MEDS: INSULIN ASPART (*BKC) 100 UNITS/ML SUB-Q (12:10)
[2022-08-11 14:00] VITALS: BP 115/60; PULSE 103; RESP 19; TEMP 36.5; O2SAT 100
--- NOTE | 2022-08-11 15:55 | PM.DS ---
DS: Admitting Diagnosis Discharge Date 08/11/22 Admitting Diagnosis Left hip fracture DS: Discharge Diagnosis Discharge Diagnosis (1) Closed intertrochanteric fracture: Qualifiers: Encounter type: initial encounter Fracture alignment: displaced Laterality: left Qualified Code(s): S72.142A - Displaced intertrochanteric fracture of left femur, initial encounter for closed fracture Code(s): S72.143A - Displaced intertrochanteric fracture of unspecified femur, initial encounter for closed fracture Status: Acute Assessment and Plan: Patient has a history of idiopathic peripheral neuropathy and he wears leg braces to aid in balance. Patient does not exactly remember why he had fallen. He was not sure if he had tripped due to the lack of feeling below the knee.Patient does have significant left hip pain. X-ray revealed intertrochanteric left proximal femur fracture Ortho has been consulted Continue with analgesic Intramedullary nailing left hip (done 07/28/22). Postop care per Ortho Add kpad and trial muscle relaxer for thigh pain. bisacodyl suppository PRN. He is on miralax PO daily and senna plus 2 tabs BID scheduled. SNF placement approved on 08/11/2022 (2) Type 2 diabetes mellitus: Qualifiers: Diabetes mellitus long-term insulin use: without long-term use Diabetes mellitus complication status: without complication Qualified Code(s): E11.9 - Type 2 diabetes mellitus without complications Code(s): E11.9 - Type 2 diabetes mellitus without complications Status: Chronic Assessment and Plan: Non-insulin dependent diabetes, Accu-Cheks every 6 hours with sliding scale insulin and hypoglycemic protocol A1c 7.4% Glucose stable. Continue Jardiance and aspart sliding scale insulin Q6 hours. Anastasia is non formulary and administer home medication, dose given 07/30; He usually takes this on Wednesdays. Resumed metformin XR 500 mg BID 72 hours after fluoroscopy on 08/01/22 Stable (3) Idiopathic neuropathy: Code(s): G60.9 - Hereditary and idiopathic neuropathy, unspecified Status: Chronic Assessment and Plan: chronic, the patient wears braces. (4) HTN (hypertension): Code(s): I10 - Essential (primary) hypertension Status: Chronic Assessment and Plan: Holding hydrochlorothiazide. Resume prior to discharge if BP>130/80 4/2 Hold lisinopril and atenolol due to low bp. 4/5 patient's blood pressure is stable and do not recommending resuming blood pressure medication at this time. Recommend keeping log of patient's blood pressure and Having PCP re-evaluate the need for antihypertensives. (5) Pulmonary embolism on long-term anticoagulation therapy: Code(s): I26.99 - Other pulmonary embolism without acute cor pulmonale; Z79.01 - joint terminal attack controller (current) use of anticoagulants Status: Chronic Assessment and Plan: Patient has IVC filter Continued Eliquis 5 mg BID postop Plan CODE STATUS: FULL CODE Disposition: from home. Pending rehab placement. DS: Summary Hospital Course Reason for hospitalization: Left hip fracture Hospital Course: This is a 77-year-old male who presented to the ED on 07/26/2022 due to a fall and landing on his left hip. Patient has a past medical history of hypertension, DVT, idiopathic neuropathy, pernicious anemia, and type 2 diabetes. Patient uses braces on his legs when he ambulates. Patient also with recent left rotator cuff repair surgery approximately 4 weeks prior to presentation and this limits the use of his left arm. X-ray of the hip and pelvis revealing intertrochanteric left proximal femur fracture moderately prominent bilateral hip osteoarthritis. Patient did not hit his head or lose consciousness. Head CT negative. Orthopedics consulted and surgery took place on 07/28/2022. patient underwent left hip reduction with intram
[2022-08-11 17:01] LABS: EDCOVIDSCREEN Negative (Negative)
[2022-08-11 17:06] LABS: Glucose Point of Care 125 mg/dl (65-105)
== END 2022-08-11 18:20 | DRG 481 ==
LOC: ANHED 15:10 → ANH2MED 16:38
PROVIDERS: Nurse Practitioner; Nurse Practitioner Family; Orthopaedic Surgery; Admitting Provider Family Medicine; Emergency Provider Emergency Medicine; PCP Family Medicine; Visit Provider Internal Medicine Critical Care Medicine
PROC: 0QS734Z Reposition Left Upper Femur with Internal Fixation Device, Percutaneous Approach (ICD-10-PCS; CPT 27245; principal; 2022-07-28 13:00)
DX: S72.142A Displaced intertrochanteric fracture of left femur, initial encounter for closed fracture (principal); I27.82 Chronic pulmonary embolism; E11.42 Type 2 diabetes mellitus with diabetic polyneuropathy; G60.9 Hereditary and idiopathic neuropathy, unspecified; I10 Essential (primary) hypertension; Z79.01 Long term (current) use of anticoagulants; Z20.822 Contact with and (suspected) exposure to COVID-19; Z87.891 Personal history of nicotine dependence; Z88.5 Allergy status to narcotic agent
CPT/HCPCS: 36415; 70450; 72125; 72170; 73502; 73552; 80048; 80053; 82948; 83036; 83605; 83735; 84443; 85025; 85027; 87426; 93005; 96361; 96365; 96375; 96376; 97110; 97116; 97161; 97165; 97530; 97535; 99199; 99285; A9270; C1713; C9803; G0378; J0131; J0461; J1815; J1885; J2060; J2370; J2405; J2704; J3010; J3420; J7030; J7120

== ENCOUNTER 2022-09-24 15:20 | Outpatient (CLI) | payer MEDICARE, SELFPAY ==
--- NOTE | ~2022-09-24 | CT_ITS ---
EXAMINATION: CT abdomen pelvis wo con DATE: 09/24/2022 15:45 INDICATION: Acute prostatitis TECHNIQUE: Computed tomography (CT) of the abdomen and pelvis was performed without intravenous contr ast. Automated exposure control and iterative reconstruction technique were employed. The dose-length product was 632.16 mGy-cm. COMPARISON: CT abdomen dated 03/12/2014 FINDINGS: Lung bases are clear. Heart size is normal. Atherosclerotic coronary artery calcific lesion. Very sma ll pericardial effusion. Cholecystectomy clips the gallbladder fossa. A few tiny hepatic calcific les ions consistent with old granulomatous disease. Spleen, pancreas and bilateral adrenal glands are nor mal. 3 cm right renal cyst. 1-2 mm nonobstructing stone at the left kidney. Moderate to large amount of colonic stool. There is moderate colonic diverticulosis with a sigmoid predominance. There is no adjacent inflammatory change to suggest diverticulitis. A short segment of nonobstructed ascending co barbara extends into a widemouthed abdominal wall hernia located along the right posterior infracostal ma rgin. Small bowel and appendix are normal. Mild haziness to the fat situated between the bladder and seminal vesicles which could be due to cystitis or reported prostatitis. No free intraperitoneal gas or fluid. No pathologically enlarged abdominal or pelvic lymphadenopathy. Infrarenal IVC filter. Smal l bilateral fat-containing inguinal hernias. Vasectomy clips at the base of the scrotum. Internal fix ation and callus formation at a subacute appearing intratrochanteric fracture of the proximal femur. IMPRESSION: 1. Haziness to the fat between the bladder and the seminal vesicles likely related to reported histor y of prostatitis but which also could be seen with cystitis. 2. Nonobstructed a segment of ascending colon extends into a widemouth hernia in the right posterior intercostal abdominal wall. 3. Nonobstructing 1-2 mm left renal stone. Reviewed, dictated and finalized at location A. IMPRESSION: 1. Haziness to the fat between the bladder and the seminal vesicles likely rela yvonne to reported history of prostatitis but which also could be seen with cystit is. 2. Nonobstructed a segment of ascending colon extends into a widemouth hernia i n the right posterior intercostal abdominal wall. 3. Nonobstructing 1-2 mm left renal stone.
== END 2022-09-24 15:21 | disposition home or self-care (01) ==
PROVIDERS: PCP Family Medicine; Visit Provider Urology
DX: N41.0 Acute prostatitis (principal); N20.0 Calculus of kidney
CPT/HCPCS: 74176

== ENCOUNTER 2022-11-02 13:33 | Outpatient (CLI) | payer MEDICARE, SELFPAY ==
--- NOTE | ~2022-11-02 | US_ITS ---
EXAMINATION: US scrotum doppler DATE: 11/02/2022 14:33 INDICATION: Right testicular pain TECHNIQUE: Testicular sonogram utilizing grayscale and Doppler COMPARISON: None. FINDINGS: The right testis measures 2.6 x 1.6 x 2.3 cm. The left testis measures 2.5 x 1.5 x 2.3 cm. There is normal vascular flow to both testes. The right epididymis is normal with normal vascular mercy w. The left epididymis contains small cysts or spermatoceles measuring up to 5 mm. There are small bi lateral hydroceles. IMPRESSION: 1. No sonographic correlate for the patient's symptoms. Reviewed, dictated and finalized at location L.
== END 2022-11-02 13:34 | disposition home or self-care (01) ==
PROVIDERS: PCP Family Medicine; Visit Provider Physician Assistant
DX: N50.811 Right testicular pain (principal)
CPT/HCPCS: 76870; 93976

== ENCOUNTER 2023-02-20 04:31 | Emergency (ER) | payer MEDICARE, SELFPAY ==
--- NOTE | ~2023-02-20 | CT_ITS ---
EXAMINATION: CT brain wo con DATE: 02/20/2023 05:41 INDICATION: Head injury. TECHNIQUE: Computed tomography (CT) of the head was performed without intravenous contrast. The mA wa s adjusted according to patient size. Iterative reconstruction technique was employed. The dose-lengt h product was 681.00 mGy-cm. COMPARISON: Head CT 07/26/2022 FINDINGS: There is no intracranial hemorrhage, acute infarction, or abnormal intracranial mass lesion . The ventricles are normal in size. There are likely changes of ocular lens replacement surgeries. T here is mild mucosal thickening in the paranasal sinuses. The mastoid air cells are normal. IMPRESSION: 1. Normal brain. Reviewed, dictated and finalized at location E. IMPRESSION: 1. Normal brain.
--- NOTE | ~2023-02-20 | XR_ITS ---
EXAMINATION: XR elbow LT min 3V DATE: 02/20/2023 05:51 INDICATION: Left elbow injury. Fall. TECHNIQUE: 2 views of left elbow were obtained. COMPARISON: None. FINDINGS: Bone alignment is normal. No fracture. Joint spaces are normal. There is an enthesophyte at medial humeral epicondyle. No elbow joint effusion. There is soft tissue swelling overlying olecrano n. IMPRESSION: 1. No fracture. Reviewed, dictated and finalized at location E. IMPRESSION: 1. No fracture.
--- NOTE | ~2023-02-20 | XR_ITS ---
EXAMINATION: XR hand LT min 3V DATE: 02/20/2023 05:51 INDICATION: Left hand pain. Fall. TECHNIQUE: 3 views of left hand were obtained. COMPARISON: None. FINDINGS: Bone alignment is normal. No fracture. There is mild osteoarthritis of first carpometacarpa l joint, first, third, and fourth metacarpophalangeal joints, and some of the interphalangeal joints. IMPRESSION: 1. Mild polyarticular osteoarthritis. Reviewed, dictated and finalized at location E.
--- NOTE | ~2023-02-20 | XR_ITS ---
EXAMINATION: XR wrist LT min 3V DATE: 02/20/2023 05:51 INDICATION: Left wrist pain. Fall. TECHNIQUE: 3 views of left wrist were obtained. COMPARISON: None. FINDINGS: Bone alignment is normal. No fracture. Joint spaces are normal. IMPRESSION: 1. No fracture. Reviewed, dictated and finalized at location E. IMPRESSION: 1. No fracture.
[2023-02-20 04:35] VITALS: BP 157/80; PULSE 78; RESP 14; TEMP 37; O2SAT 99
--- NOTE | 2023-02-20 04:38 | ED.GENADULT ---
HPI - General Adult General Chief complaint: Fall Stated complaint: fall, L arm pain Time Seen by Provider: 02/20/23 04:45 History of Present Illness HPI narrative: Patient 78-year-old gentleman who presents emerged department with chief complaint of fall. Patient reports that he got tangled up in his walker and fell forward patient reports that he struck his face on the carpet and has an abrasion to his nose the patient did report that he had a brief nosebleed after the fall the patient also reports pain initially in his elbow and then also in his hand and wrist on the left upper extremity. Patient is on anticoagulants and reports no other injuries the patient denies chest pain denies shortness of breath Related Data Allergies Allergy/AdvReac Type Severity Reaction Status Date / Time cefepime Allergy Severe Unresponsiv Verified 02/20/23 04:59 e Review of Systems Review of Systems: A 10 system review of systems was completed on the patient and is negative except for what is stated in the HPI. Nursing and ancillary documentation was reviewed. [facility] Past Medical History Medical History Lhhoeaq-Gcuzt-Tggds disease Chronic anticoagulation Essential (primary) hypertension History of deep vein thrombosis Idiopathic neuropathy Pernicious anemia Personal history of other venous thrombosis and embolism Prophylactic antibiotic for dental procedure indicated due to prior joint replacement Type 2 diabetes mellitus Surgical History Surgical History Amputated toe of left foot Tip of 2nd phalanges History of basal cell carcinoma excision History of cataract extraction History of cholecystectomy History of extraction of renal calculus History of inferior vena caval filter placement History of repair of left rotator cuff History of tonsillectomy and adenoidectomy Family History Family History Mother Family history of lung cancer Family history of malignant neoplasm of breast in first degree relative Father Hypertension Cerebrovascular accident DVT (deep venous thrombosis) Asthma Social History Social History Social History: Surrogate medical decision maker: Nona Browning, spouse. Code status: Full code. Smoking status: Former smoker Tobacco type: pipe and cigars Second hand tobacco smoke exposure: No Smoking end date: 05/09/93 Additional smoking assessment comments: quit in 1999 Alcohol intake: never Substance use: never Substance use type: does not use Lack of Transportation: No Lack of Food: Never True Current Housing: I Have Housing Concerned About Future Housing: No Difficulty Paying Gas/Electric Bills: No Difficulty Paying for Meds: No Currently Unemployed: No Education: Master's Degree or Higher Difficulty w/ Childcare or Family Care: No Living arrangements: with family Additional living arrangements comments: Lives with in [place]. They have 2 daughters. Occupation/Education: retired Additional occupation/education comments: Retired educator, Special Education. Spiritual care concerns: No Exam Narrative: GENERAL: Well-appearing, well-nourished, and in no acute distress. HEAD: Normocephalic, small abrasion to the bridge of the nose. EYES: PERRLA and EOMI. ENT: Nares clear, no rhinorrhea or epistaxis. Mucous membranes moist. NECK: Supple. CHEST: Clear to auscultation. No respiratory distress. HEART: Regular rate and rhythm. No murmur heard. Normal peripheral pulses. ABDOMEN: Soft, nontender, nondistended, normal active bowel sounds. EXTREMITIES: Normal range of motion mild tenderness to palpation of the left wrist and left hand 8. No edema. SKIN: Warm, dry, no rash. NEURO: No focal deficits. Alert and
[2023-02-20 06:20] VITALS: BP 134/61; PULSE 66; RESP 17; O2SAT 100
[2023-02-20 07:02] VITALS: BP 132/69; PULSE 67; RESP 13; O2SAT 100
== END 2023-02-20 07:04 | disposition home or self-care (01) ==
PROVIDERS: Emergency Provider Emergency Medicine; PCP Family Medicine
DX: S09.90XA Unspecified injury of head, initial encounter (principal); S60.212A Contusion of left wrist, initial encounter; S60.222A Contusion of left hand, initial encounter; I10 Essential (primary) hypertension; E11.9 Type 2 diabetes mellitus without complications; Z86.718 Personal history of other venous thrombosis and embolism; W01.0XXA Fall on same level from slipping, tripping and stumbling without subsequent striking against object, initial encounter
CPT/HCPCS: 70450; 73080; 73110; 73130; 99284

== ENCOUNTER 2024-06-21 14:08 | Outpatient (CLI) | payer MEDICARE, SELFPAY ==
--- NOTE | ~2024-06-21 | XR_ITS ---
EXAMINATION: XR sacrum coccyx min 2V DATE: 06/21/2024 14:32 INDICATION: Sacrococcygeal disorders, not elsewhere classified. Low back pain. Fall. TECHNIQUE: 3 views of the sacrum and coccyx were obtained. COMPARISON: Pelvis radiograph 09/08/2022, CT 09/24/2022 FINDINGS: Alignment is normal. No fracture. There is mild lumbar spondylosis. There is ankylosis of t he sacroiliac joints. There is internal fixation of left femur. There is mild osteoarthritis of the h ips. Surgical clips overlie the scrotum. IMPRESSION: 1. No fracture. Reviewed, dictated and finalized at location A. PRESSER IMPRESSION: 1. No fracture.
--- NOTE | ~2024-06-21 | XR_ITS ---
EXAMINATION: XR lumbar spine 2-3V DATE: 06/21/2024 14:32 INDICATION: Low back pain. Sacrococcygeal disorders, not elsewhere classified. TECHNIQUE: 3 views of the lumbar spine were obtained. COMPARISON: None. FINDINGS: There is 4 degrees dextrocurvature of thoracolumbar spine. There is mild chronic anterior w edging of T12-L2 vertebral bodies. Intervertebral disc heights are normal. There are endplate osteoph ytes at all levels. There is multilevel [id number] facet joint osteoarthritis. There is a filte r in the inferior vena cava. There are surgical clips in right abdomen. IMPRESSION: 1. Mild lumbar spondylosis. Reviewed, dictated and finalized at location A. BUILDER AND ERECTOR IMPRESSION: 1. Mild lumbar spondylosis.
== END 2024-06-21 14:09 | disposition home or self-care (01) ==
PROVIDERS: PCP Family Medicine; Visit Provider Physician Assistant Medical
DX: M47.816 Spondylosis without myelopathy or radiculopathy, lumbar region (principal); M53.3 Sacrococcygeal disorders, not elsewhere classified; W19.XXXA Unspecified fall, initial encounter
CPT/HCPCS: 72100; 72220